=== PATIENT | female | born 1955 | race Caucasian/White ===

== ENCOUNTER 2016-11-24 09:55 | Observation (INO) | payer MEDICARE ==
[~2016-11-24] VITALS: Ht 162.6 cm; Wt 49.0 kg
[~2016-11-24 09:55] MED LIST: AMITIZA8 MCG PO; ATIVAN1 MG PO; BACTRIM 400-801 TAB PO; BACTRIM DS TABL1 TAB PO; BYSTOLIC5 MG PO; CALAN SR180 MG PO; CARAFATE1 G PO; CARAFATE1 G/10 ML PO; DEXILANT60 MG; DEXILANT60 MG PO; DOK250 MG PO; ESTER-C 500 MG1 TAB; ESTER-C 500 MG1 TAB PO; FEXOFENADINE HC60 MG PO; HYDROCODON-ACE1 EAC9 PO; HYDROCODONE 10/325; HYDROCODONE-APA1 TAB PO; INSPIRATION ELI1 PK1 INH; IPRAT-ALBUT 0.5-3 ML UPD; K-TAB10 MEQ PO; LANOXIN125 MCG PO; LASIX20 MG PO; LEVAQUIN750 MG PO; LYRICA150 MG PO; MEDROL DOSE PACK4 MG PO; MIRALAX17 GM PO; MUCINEX600 MG PO; MULTI-DAY VITAM1 TAB PO; NORCO 10/325 TA1 TA1 PO; PEPCID AC20 MG PO; PERFOROMIS20 MCG/21 INH; PREDNISONE20 MG PO; PRINIVIL20 MG PO; PULMICORT0.5 MG/21 INH; RESTORIL15 MG PO; ROCEPHIN 2 GM/D52 G1 IV; SINGULAIR10 MG PO; SOMA350 MG PO; STERAPRED DS 1010 MG PO; STERAPRED DS 1210 MG PO; SYNTHR; SYNTHROID75 MCG PO; TESSALON PERLE100 MG PO; TUMS500 MG PO; VANCOMYCIN 1 GM/1 G1 IV; VENTOLIN HFA18 GM; VENTOLIN HFA18 GM INH
[2016-11-24 11:03] LABS: BASOPHILS 0.8 % (0.0-2.0); EOSINOPHILS 3.5 % (0-7); HEMATOCRIT 40.5 % (36.0-48.0); IMMATURE GRANULOCYTES 0.1 % (0-5); MCHC 32.1 g/dL (31.0-37.0); MCV 90.4 fL (80.0-100.0); MEAN PLATELET VOLUME 11.6 fL (7.4-10.4); MONOCYTES 9.9 % (2-11); NEUTROPHILS 59.7 % (40-80); PLATELET COUNT 198 10x3/uL (130-400); RBC 4.48 10x6/uL (4.00-5.40); RDW 15.4 % (11.5-14.5); WBC 7.1 10x3/uL (4.8-10.8)
[2016-11-24 11:19] LABS: ALBUMIN 3.9 g/dL (3.4-5.0); ALKALINE PHOSPHATASE 132 U/L (46-116); ALT (SGPT) 19 U/L (10-68); BILIRUBIN - TOTAL 0.28 mg/dL (0.2-1.3); CALC OSMOLALITY 280 mosm/kg (275-300); CALCIUM 9.6 mg/dL (8.5-10.1); CARBON DIOXIDE 31.6 mmol/L (21.0-32.0); CHLORIDE - SERUM 100 mmol/L (98-107); CREATININE - SERUM 0.6 mg/dL (0.6-1.3); GLUCOSE 129 mg/dL (74-106); POTASSIUM - SERUM 4.5 mmol/L (3.5-5.1); SODIUM 138 mmol/L (136-145); UREA NITROGEN 20 mg/dL (7-18); eGFR NON AFRICAN AMERICAN > 90 mL/min (90-120)
[2016-11-24 11:35] LABS: CKMB 2.8 U/L (0.0-3.6); CREATINE KINASE 85 UL (21-215)
[2016-11-24 11:36] LABS: TROPONIN-I < 0.017 ng/mL (0.000-0.060)
--- NOTE | 2016-11-24 15:08 | NUR ---
ARRIVE TO ROOM VIA WHEELCHAIR FROM ER. ALERT AND ORIENTED X4. COMPLAINS OF SOB. BAG OVER STOMA 8L. IN ROOM. CONTINUE ADMISSION PROCESS. BED LOCKED AND LOW. CALL LIGHT IN REACH. TWO SIDERAILS UP. REFUSE SCDs.
--- NOTE | 2016-11-24 17:02 | NUR ---
INITIATE CARDIZEM DRIP AT 10mL/HR ORDERED. AFLUTTER-132bpm ON TELEMETRY. BP-118/83. CONTINUE TO MONITOR HR AND BP. CONTINUE PLAN OF CARE AND SAFETY PRECAUTIONS.
[2016-11-24 17:32] VITALS: BP 147/97; BMI 18.6
--- NOTE | 2016-11-24 19:10 | NUR ---
Received patient sitting up in bed, trach collar on over stoma, PIV in left hand saline locked. Respirations unlabored, no signs of distress at this time.
--- NOTE | 2016-11-24 21:36 | NUR ---
Given [place] tab PRN for complaints of mid chest pain especially when she coughs. Rated her pain at 9/10. Writing requests on notepad, attention seeking, numerous requests for snacks, drinks, etc. Easily frustrated.
--- NOTE | 2016-11-24 22:25 | NUR ---
PRN [place] deemed efective patient is sleeping soundly in bed. Respirations unlabored.
[2016-11-24 22:28] VITALS: BP 133/64
--- NOTE | 2016-11-24 23:20 | NUR ---
Has had call shepard on repeatedly requesting a drink, then pudding, then ice cream, then a sandwich. Wants another [place] tab but is not due, re-eucated to analgesic order, reminded patient she also had been given Soma and Lyrica with HS medications as well as Restoril and Ativan. Using her notepad and gestures patient agreed to wait until 0300, if awake then.
[2016-11-25 00:59] VITALS: BP 145/97
--- NOTE | 2016-11-25 03:40 | NUR ---
Has been sleeping, awoke with complaints of mid chest pain and ribcage pain, requested and given [place] tab PRN for pain level rated 10/10.
--- NOTE | 2016-11-25 04:01 | NUR ---
Call light on, forgot she was already given her [place] tab and requesting same again, informed she already had it and needs to let same take effect.
[2016-11-25 05:21] VITALS: BP 150/79
--- NOTE | 2016-11-25 06:15 | NUR ---
Patient has continued attention seeking and making numerous requests for water, ice, pudding, snacks, etc. Easily agitated, impulsive and impatient. Has slept poorly since 339. Continues to question her medication regime.
[2016-11-25 08:00] VITALS: BP 184/95
[2016-11-25 12:00] VITALS: BP 157/104
[2016-11-25 12:15] VITALS: Ht 162.6 cm; Wt 49.0 kg
--- NOTE | 2016-11-25 16:08 | NUR ---
SPOKE WITH TERRI/PHARMACIST WITH [facility] VIA PHONE TO REQUEST SPRAY DRIER OPERATOR OF PRESCRIPTIONS FOR REFILLS FROM PATIENT AFTER DISCHARGE TO HOME. TERRI ADVISED IT WILL BE IN THE MORNING. NOTIFIED PT WHO ACKNOWLEDGED UNDERSTANDING
--- NOTE | 2016-11-25 16:32 | NUR ---
DC LT HAND IV TIP INTACT. WRITTEN SCRIPTS PROVIDED. ALERT AND ORIENTED X4. DISCHARGE INSTRUCTIONS GIVEN VERBALLY AND WRITTEN. DISCHARGE PAPERS SIGNED ON CHART. EMS ARRIVE TO TRANSPORT HOME. REMAINS FREE FROM INJURY.
--- NOTE | 2016-11-25 16:34 | NUR ---
Patient Name: CELY ANN Admission Status: ER Accout number: [id number] Admission Date: 11-24-2016 : 1955 Admission Diagnosis: Attending: KEVIN Current LOS: 1 Anticipated DC Date: 11-25-2016 Planned Disposition: Home Health Service Primary Insurance: MEDICARE A & B Discharge Planning Comments: * Is the patient Alert and Oriented? Yes 0 * How many steps to enter\exit or inside your home? NONE 0 * PCP DR. VERAS 0 * Pharmacy [facility] 0 * Preadmission Environment Home Alone 0 * ADLs Partial Dependent 0 * Partial ADLs (Assistance needed) Ambulation Bathing Dressing Medication Management Toileting 0 * Equipment Nebulizer Oxygen 0 Wheelchair * Other Equipment [facility] MEDICAL - MEDICAL EQUIPMENT PROVIDER 0 * List name and contact numbers for known caregivers / representatives who currently or will assist patient after discharge: PT REPORTS HAVING NO ASSISTANCE OTHER THAN PAID CAREGIVERS FROM [facility] 0 * Community resources currently utilized Home Health Private Duty Care 0 * Please name any agencies selected above. [facility] 0 * Additional services required to return to the preadmission environment? No 0 * Can the patient safely return to the preadmission environment? Yes 0 * Has this patient been hospitalized within the prior 30 days at any hospital? No [address] VERAS WHO ASKED CM TO ASSIST PT WITH FINDING TRANSPORTATION HOME TODAY HE HAS DISCHARGED HER AND SHE HAS NO WAY HOME. CM MET WITH PT IN ROOM TO DISCUSS DISCHARGE PLANNING AND NEEDS. COULD NOT TALK AND COMMUNICATED IN WRITING, BUT CAN UNDERSTAND CM SPEAKING TO HER. PT REPORTS LIVING AT HOME PARTIALLY DEPENDENT UPON CAREGIVERS WHO ARE NOT AVAILABLE TODAY. PT HAS OXYGEN, WHEELCHAIR AND NEBULIZER AT HOME FROM [facility]. PT HAS HOME HEALTH WITH [facility] AND PERSONAL CARE FROM [facility]. CM DISCUSSED AVAILABILITY REHAB SERVICES AND ABILITY TO GET PORTABLE OXYGEN FROM [employer] FOR HER CAREGIVER TO PICK HER UP TO TAKE HER HOME. PT REPROTS HER CAREGIVER IS NOT AVAILABLE, HER OXYGEN AND WHEELCHAIR ARE LOCKED IN HER APARTMENT. PT WANTS CM TO CALL AMBULANCE TO TAKE HER HOME. CM EXPLAINED THAT THIS IN NOT EMERGENCY TRANSPORTATION AND OTHER ARRANGEMENTS NEED TO BE MADE. PT IS NOT ABLE TO RIDE IN [place] AND AGAIN REPORTS NOT HAVING HER WHEELCHAIR OR OXYGEN HERE. PT REPORTS THAT EVEN WITH OXYGEN, HER WHEELCHAIR IS NOT AVAILABLE. CM ASKED IF HER CAREGIVER OR SOMEONE FROM [facility] HAS ACCESS TO HER APARTMENT TO BRING HER WHEELCHAIR AND OXYGEN TO HER. PT REPORTED NO AND INSISTED ON AMBULANCE TRANSPORTATION, REPORTS MEDICAID PAYS FOR IT EVERY TIME. CM ATTEMPTED TO CONTINUE DISCUSSION, PT INSISTED CM CALL AMBULANCE FOR HER. CM EXPLAINED THAT CM WILL CALL WITH PT REQUEST AND SHE COULD BE BILLED FOR THE TRANSPORTATION BY AMBULANCE. PT REPORTED UNDERSTANDING. CM CALLED [facility], SPOKE TO SHE WHO WAS FAMILIAR WITH PT. TRANSPORTATION ARRANGED. CM FILLED OUT PCS FORM WITH INFORMATION PROVIDED BY PT WITH THE NOTATION THAT PT IS OXYGEN DEPENDENT. PT NOTIFIED. PT DENIES FURHTER NEEDS FROM CM AND ASKED THAT THE NURSE CALL [facility] REGARDING PT'S DISCHARGE MEDICATIONS. PT STATES HER CAREGIVER HAS BEEN NOTIFIED AND WILL RESUME HER CARE TOMORROW. PT REPORTS ABILITY TO CARE FOR HERSELF TONIGHT AT HOME. RUBBER GASKET INSPECTOR TRIMMER NURSE NOTIFIED. CM CALLED [facility], , NOTIFIED CARLOS OF PT'S DISCHARGE HOME TODAY. CM FAXED DISCHARGE INFORMATION TO [facility] AT [phone]. PT NOTIFIED. AMBULANCE TO FRONT DESK MONITOR PT SHORTLY FOR TRANSPORT HOME. BEDISIDE NURSE NOTIFIED. Classroom Coordinator: Jake Loredo
== END 2016-11-25 16:33 | disposition home or self-care (01) ==
LOC: D.ER 09:55 → OBSVTIME 13:34 → D.M2 13:34
PROVIDERS: Emergency Medicine; ADMIT Family Medicine
DX: R07.9 Chest pain, unspecified (principal); J44.9 Chronic obstructive pulmonary disease, unspecified; G62.9 Polyneuropathy, unspecified; I10 Essential (primary) hypertension; I48.91 Unspecified atrial fibrillation

== ENCOUNTER 2017-01-01 17:58 | Emergency (ER) | payer MEDICARE ==
[2016-11-25 12:15] VITALS: BMI 18.5
== END 2017-01-01 20:15 | disposition home or self-care (01) ==
LOC: D.ER 17:58
DX: J44.1 Chronic obstructive pulmonary disease with (acute) exacerbation (principal); S63.502A Unspecified sprain of left wrist, initial encounter; X58.XXXA Exposure to other specified factors, initial encounter; Y93.89 Activity, other specified; Y92.019 Unspecified place in single-family (private) house as the place of occurrence of the external cause; I10 Essential (primary) hypertension; F17.200 Nicotine dependence, unspecified, uncomplicated

== ENCOUNTER 2017-01-05 13:01 | Emergency (ER) | payer MEDICARE ==
[2016-11-25 12:15] VITALS: BMI 18.5
[2017-01-05 14:44] LABS: ALBUMIN 3.4 g/dL (3.4-5.0); ALKALINE PHOSPHATASE 118 U/L (46-116); ALT (SGPT) 27 U/L (10-68); BILIRUBIN - TOTAL 0.12 mg/dL (0.2-1.3); CALC OSMOLALITY 285 mosm/kg (275-300); CALCIUM 8.5 mg/dL (8.5-10.1); CARBON DIOXIDE 32.8 mmol/L (21.0-32.0); CHLORIDE - SERUM 103 mmol/L (98-107); CREATININE - SERUM 0.5 mg/dL (0.6-1.3); GLUCOSE 107 mg/dL (74-106); POTASSIUM - SERUM 4.6 mmol/L (3.5-5.1); PROTEIN - SERUM 6.2 g/dL (6.4-8.2); SODIUM 142 mmol/L (136-145); UREA NITROGEN 20 mg/dL (7-18); eGFR NON AFRICAN AMERICAN > 90 mL/min (90-120)
[2017-01-05 14:55] LABS: TROPONIN-I < 0.017 ng/mL (0.000-0.060)
[2017-01-05 15:10] LABS: UDS - AMPHET NEGATIVE QUAL (NEGATIVE); UDS - BARB NEGATIVE QUAL (NEGATIVE); UDS - BENZO NEGATIVE QUAL (NEGATIVE); UDS - COCAINE NEGATIVE QUAL (NEGATIVE); UDS - METH NEGATIVE QUAL (NEGATIVE); UDS - OPIATE NEGATIVE QUAL (NEGATIVE); UDS - PCP NEGATIVE QUAL (NEGATIVE); UDS - THC NEGATIVE QUAL (NEGATIVE)
[2017-01-05 15:37] LABS: BASOPHILS 0.6 % (0.0-2.0); EOSINOPHILS 2.3 % (0-7); HEMATOCRIT 38.4 % (36.0-48.0); HEMOGLOBIN 11.8 g/dL (12-16); IMMATURE GRANULOCYTES 0.3 % (0-5); LYMPHOCYTES 15.1 % (15-50); MCH 29.8 pg (26.0-34.0); MCHC 30.7 g/dL (31.0-37.0); MEAN PLATELET VOLUME 11.4 fL (7.4-10.4); MONOCYTES 7.8 % (2-11); NEUTROPHILS 73.9 % (40-80); PLATELET COUNT 203 10x3/uL (130-400); RBC 3.96 10x6/uL (4.00-5.40); RDW 14.8 % (11.5-14.5); WBC 6.5 10x3/uL (4.8-10.8)
== END 2017-01-05 18:42 | disposition home or self-care (01) ==
LOC: D.ER 13:01
PROVIDERS: Emergency Medicine
DX: J44.1 Chronic obstructive pulmonary disease with (acute) exacerbation (principal); F10.129 Alcohol abuse with intoxication, unspecified; I10 Essential (primary) hypertension; R00.0 Tachycardia, unspecified

== ENCOUNTER 2017-01-08 22:13 | Emergency (ER) | payer MEDICARE ==
[2016-11-25 12:15] VITALS: BMI 18.5
== END 2017-01-09 00:50 | disposition home or self-care (01) ==
LOC: D.ER 22:13
DX: J44.1 Chronic obstructive pulmonary disease with (acute) exacerbation (principal); I10 Essential (primary) hypertension; R00.0 Tachycardia, unspecified

== ENCOUNTER 2017-01-17 11:58 | Emergency (ER) | payer MEDICARE ==
[2016-11-25 12:15] VITALS: BMI 18.5
[2017-01-17 14:10] LABS: BASOPHILS 0.2 % (0.0-2.0); EOSINOPHILS 0.7 % (0-7); HEMATOCRIT 43.4 % (36.0-48.0); HEMOGLOBIN 13.7 g/dL (12-16); IMMATURE GRANULOCYTES 0.8 % (0-5); LYMPHOCYTES 17.5 % (15-50); MCH 29.8 pg (26.0-34.0); MCHC 31.6 g/dL (31.0-37.0); MCV 94.6 fL (80.0-100.0); MONOCYTES 8.9 % (2-11); NEUTROPHILS 71.9 % (40-80); RBC 4.59 10x6/uL (4.00-5.40); RDW 14.9 % (11.5-14.5); WBC 8.3 10x3/uL (4.8-10.8)
[2017-01-17 14:11] LABS: PLATELET COUNT 267 10x3/uL (130-400)
[2017-01-17 14:28] LABS: ALBUMIN 3.4 g/dL (3.4-5.0); ALKALINE PHOSPHATASE 121 U/L (46-116); ALT (SGPT) 35 U/L (10-68); CALC OSMOLALITY 286 mosm/kg (275-300); CALCIUM 8.6 mg/dL (8.5-10.1); CARBON DIOXIDE 32.5 mmol/L (21.0-32.0); CHLORIDE - SERUM 104 mmol/L (98-107); CREATININE - SERUM 0.5 mg/dL (0.6-1.3); GLUCOSE 107 mg/dL (74-106); POTASSIUM - SERUM 4.9 mmol/L (3.5-5.1); PROTEIN - SERUM 6.4 g/dL (6.4-8.2); SODIUM 143 mmol/L (136-145); UREA NITROGEN 19 mg/dL (7-18); eGFR NON AFRICAN AMERICAN > 90 mL/min (90-120)
[2017-01-17 15:27] LABS: UDS - AMPHET NEGATIVE QUAL (NEGATIVE); UDS - BARB NEGATIVE QUAL (NEGATIVE); UDS - BENZO POSITIVE QUAL (NEGATIVE); UDS - COCAINE NEGATIVE QUAL (NEGATIVE); UDS - METH NEGATIVE QUAL (NEGATIVE); UDS - OPIATE NEGATIVE QUAL (NEGATIVE); UDS - PCP NEGATIVE QUAL (NEGATIVE); UDS - THC NEGATIVE QUAL (NEGATIVE)
[2017-01-17 15:29] LABS: APPEARANCE CLEAR (CLEAR); BACTERIA MODERATE /hpf (NONE SEEN); BILIRUBIN NEGATIVE (NEGATIVE); COLOR YELLOW (YELLOW); EPITHELIAL CELLS 0-5 /hpf (0-5); GLUCOSE NEGATIVE (NEGATIVE); KETONE NEGATIVE (NEGATIVE); LEUKOCYTE ESTERASE TRACE (NEGATIVE); MUCUS <1+ /lpf (NONE SEEN); NITRITE NEGATIVE (NEGATIVE); PROTEIN NEGATIVE (NEGATIVE); RED CELLS - URINE OCC /hpf (0-5); SPECIFIC GRAVITY 1.015 (1.005-1.020); UROBILINOGEN NORMAL (NORMAL)
== END 2017-01-17 16:56 | disposition home or self-care (01) ==
LOC: D.ER 11:58
PROVIDERS: Emergency Medicine; Nurse Practitioner Family
DX: M79.641 Pain in right hand (principal); J44.9 Chronic obstructive pulmonary disease, unspecified; I10 Essential (primary) hypertension; R00.0 Tachycardia, unspecified

== ENCOUNTER 2017-02-01 10:21 | Emergency (ER) | payer MEDICARE ==
[2016-11-25 12:15] VITALS: BMI 18.5
[2017-02-01 10:53] LABS: BASOPHILS 0.2 % (0.0-2.0); EOSINOPHILS 0 % (0-7); HEMOGLOBIN 10.1 g/dL (12-16); IMMATURE GRANULOCYTES 0.2 % (0-5); LYMPHOCYTES 9.2 % (15-50); MCH 29.4 pg (26.0-34.0); MCHC 30.6 g/dL (31.0-37.0); MCV 95.9 fL (80.0-100.0); MEAN PLATELET VOLUME 10.8 fL (7.4-10.4); MONOCYTES 11.7 % (2-11); NEUTROPHILS 78.7 % (40-80); PLATELET COUNT 289 10x3/uL (130-400); RBC 3.44 10x6/uL (4.00-5.40); RDW 14.1 % (11.5-14.5)
[2017-02-01 11:25] LABS: ALBUMIN 2.9 g/dL (3.4-5.0); ALKALINE PHOSPHATASE 80 U/L (46-116); ALT (SGPT) 18 U/L (10-68); AMYLASE - SERUM 68 U/L (25-115); CALC OSMOLALITY 286 mosm/kg (275-300); CALCIUM 9.3 mg/dL (8.5-10.1); CHLORIDE - SERUM 101 mmol/L (98-107); CREATININE - SERUM 0.8 mg/dL (0.6-1.3); GLUCOSE 128 mg/dL (74-106); LIPASE 127 U/L (73-393); POTASSIUM - SERUM 3.9 mmol/L (3.5-5.1); PROTEIN - SERUM 5.9 g/dL (6.4-8.2); SODIUM 141 mmol/L (136-145); UREA NITROGEN 25 mg/dL (7-18); eGFR NON AFRICAN AMERICAN 77 mL/min (90-120)
[2017-02-01 12:00] LABS: APPEARANCE HAZY (CLEAR); BILIRUBIN NEGATIVE (NEGATIVE); COLOR YELLOW (YELLOW); GLUCOSE NEGATIVE (NEGATIVE); KETONE NEGATIVE (NEGATIVE); LEUKOCYTE ESTERASE NEGATIVE (NEGATIVE); NITRITE NEGATIVE (NEGATIVE); PROTEIN NEGATIVE (NEGATIVE); UROBILINOGEN NORMAL (NORMAL)
== END 2017-02-01 14:10 | disposition home or self-care (01) ==
LOC: D.ER 10:21
PROVIDERS: Family Medicine
DX: K52.9 Noninfective gastroenteritis and colitis, unspecified (principal); R11.10 Vomiting, unspecified; J44.9 Chronic obstructive pulmonary disease, unspecified; I10 Essential (primary) hypertension; F17.200 Nicotine dependence, unspecified, uncomplicated

== ENCOUNTER 2017-02-02 17:24 | Inpatient (IN) | payer MEDICARE ==
[~2017-02-02] VITALS: Ht 162.6 cm; Wt 52.3 kg
[2017-02-02 19:53] LABS: BASOPHILS 0.1 % (0.0-2.0); EOSINOPHILS 0.6 % (0-7); HEMOGLOBIN 8.1 g/dL (12-16); IMMATURE GRANULOCYTES 0.7 % (0-5); LYMPHOCYTES 6.4 % (15-50); MCH 29.5 pg (26.0-34.0); MCHC 31.8 g/dL (31.0-37.0); MEAN PLATELET VOLUME 11.3 fL (7.4-10.4); MONOCYTES 7.8 % (2-11); NEUTROPHILS 84.4 % (40-80); PLATELET COUNT 245 10x3/uL (130-400); RDW 14.7 % (11.5-14.5)
[2017-02-02 20:11] LABS: ALBUMIN 2.8 g/dL (3.4-5.0); ALKALINE PHOSPHATASE 73 U/L (46-116); ALT (SGPT) 16 U/L (10-68); BILIRUBIN - TOTAL 0.21 mg/dL (0.2-1.3); CALC OSMOLALITY 273 mosm/kg (275-300); CALCIUM 8.5 mg/dL (8.5-10.1); CARBON DIOXIDE 30.5 mmol/L (21.0-32.0); CHLORIDE - SERUM 99 mmol/L (98-107); CREATININE - SERUM 0.6 mg/dL (0.6-1.3); GLUCOSE 94 mg/dL (74-106); POTASSIUM - SERUM 3.9 mmol/L (3.5-5.1); PROTEIN - SERUM 5.5 g/dL (6.4-8.2); SODIUM 136 mmol/L (136-145); eGFR NON AFRICAN AMERICAN > 90 mL/min (90-120)
[2017-02-02 20:13] LABS: UREA NITROGEN 18 mg/dL (7-18)
[2017-02-02 20:18] LABS: DIGOXIN 0.49 ng/mL (0.90-2.00); PRO BNP 115 pg/mL (0-125)
[2017-02-02 20:22] LABS: TROPONIN-I < 0.017 ng/mL (0.000-0.060)
[2017-02-02 20:24] LABS: HEMATOCRIT 25.5 % (36.0-48.0); MCV 92.7 fL (80.0-100.0); RBC 2.75 10x6/uL (4.00-5.40)
[2017-02-02 22:53] VITALS: BP 100/69; BMI 20.1
--- NOTE | 2017-02-02 23:40 | NUR ---
PT CALLED REQUESTING SOMETHING FOR CHEST PRESSURE R/T CONGESTION. PROVIDED PT WITH PRN MORPHINE VIA L.AC PIV. PT VOICED THANKS AND WOULD LIKE LIGHTS OUT AND TO TRY TO REST. CL IN REACH, BED IN LOWEST, SIDE RAILS X2. NO FURTHER NEEDS AT THIS TIME. WILL CPOC.
[2017-02-03] VITALS: BP 100/69; BP 110/66
--- NOTE | 2017-02-03 00:39 | NUR ---
PT CALLED REQUESTING TO USE BR. ASSISTED ONTO BEDPAN PT VOIDED. PT RESTING IN BED STATES SHE FELT RELIEF FROM MORPHINE THAT WAS GIVEN EARLIER. DENIES ANY CURRENT NEEDS. CL IN REACH. WILL CTM.
--- NOTE | 2017-02-03 03:28 | NUR ---
PT CALLED REQUESTING HER PRN PAIN MEDICATION AND WAS PROVIDED WITH IT ALONG WITH HER SCHEDULED [place] VIA L.AC PIV ACCESS. ASSISTED PT WITH HER SUCTION AND RESPIRATORY IN ROOM WITH SCHEDULED TX. PT VOICED THANKS AND DENIES ANY FURTHER NEEDS AT THIS TIME. WILL CTM.
[2017-02-03 04:00] VITALS: BP 93/52
--- NOTE | 2017-02-03 04:55 | NUR ---
PT CALLED REQUESTING TO USE BEDPAN. PT VOIDED LARGE AMOUNT OF CLEAR YELLOW URINE. PT RESTING SITTING UP IN BED AND DENIES ANY FURTHER NEEDS AT THIS TIME. CL IN REACH, BED IN LOWEST, SIDE RAILS X2. WILL CPOC.
[2017-02-03 08:05] VITALS: BP 84/64
--- NOTE | 2017-02-03 09:20 | NUR ---
PT ASSESSMENT COMPLETED PT SITTING UP IN BED ON SIDE RESPERATIONS EVEN AND UNLABORED CALL LIGHT IN REACH SRX2 BED LOW AND LOCKED WILL MONITOR
--- NOTE | 2017-02-03 10:18 | NUR ---
PT REFUSING TO WEAR SCD AT THIS TIME
--- NOTE | 2017-02-03 11:28 | NUR ---
PT LAYING IN BED NO DISTRESS OBSERVED CALL LIGHT IN REACH SRX2 BED LOW AND LOCKED WILL MONITOR
[2017-02-03 12:07] VITALS: BP 105/64
[2017-02-03 12:51] VITALS: Ht 162.6 cm; Wt 52.3 kg
[2017-02-03 17:04] VITALS: BP 106/67
--- NOTE | 2017-02-03 19:57 | NUR ---
PT RESTING IN BED, DENIES NEEDS. BED LOW. CL IN REACH.
[2017-02-03 21:17] VITALS: BP 135/68
--- NOTE | 2017-02-03 21:30 | NUR ---
PT REQ AND REC'D PRN MORPHINE FOR THROAT AND CHEST PAIN ALONG WITH HS MEDS. PT DENIES FURTHER NEEDS. WCTM. BED LOW. CL INR EACH.
--- NOTE | 2017-02-03 22:43 | NUR ---
PT SITTING UP IN BED EATING SNACK OF GRAPES. PT DENIES NEEDS. BED LOW. CL IN REACH.
[2017-02-04 01:21] VITALS: BP 103/59
--- NOTE | 2017-02-04 02:38 | NUR ---
PT RESTING, EYES CLOSED. RR ARE EVEN AND UNLABORED. WCTM. BED LOW. CL IN REACH.
[2017-02-04 04:00] VITALS: BP 123/72
[2017-02-04 05:42] LABS: ALBUMIN 2.3 g/dL (3.4-5.0); ALKALINE PHOSPHATASE 78 U/L (46-116); ALT (SGPT) 15 U/L (10-68); BILIRUBIN - TOTAL 0.38 mg/dL (0.2-1.3); CALC OSMOLALITY 273 mosm/kg (275-300); CALCIUM 8.1 mg/dL (8.5-10.1); CARBON DIOXIDE 32.4 mmol/L (21.0-32.0); CHLORIDE - SERUM 96 mmol/L (98-107); CREATININE - SERUM 0.5 mg/dL (0.6-1.3); GLUCOSE 86 mg/dL (74-106); PROTEIN - SERUM 6.2 g/dL (6.4-8.2); SODIUM 137 mmol/L (136-145); UREA NITROGEN 14 mg/dL (7-18); eGFR NON AFRICAN AMERICAN > 90 mL/min (90-120)
[2017-02-04 05:46] LABS: POTASSIUM - SERUM 3.2 mmol/L (3.5-5.1)
[2017-02-04 05:56] LABS: BASOPHILS 0.2 % (0.0-2.0); EOSINOPHILS 2.1 % (0-7); HEMATOCRIT 24.2 % (36.0-48.0); HEMOGLOBIN 7.6 g/dL (12-16); IMMATURE GRANULOCYTES 0.5 % (0-5); LYMPHOCYTES 12.7 % (15-50); MCH 28.5 pg (26.0-34.0); MCHC 31.4 g/dL (31.0-37.0); MEAN PLATELET VOLUME 11.2 fL (7.4-10.4); MONOCYTES 12.3 % (2-11); NEUTROPHILS 72.2 % (40-80); PLATELET COUNT 284 10x3/uL (130-400); RBC 2.67 10x6/uL (4.00-5.40); RDW 14.9 % (11.5-14.5)
[2017-02-04 05:57] LABS: MCV 90.6 fL (80.0-100.0); WBC 6.3 10x3/uL (4.8-10.8)
--- NOTE | 2017-02-04 06:20 | NUR ---
PT SITTING UP IN BED. AM MEDS ADMINISTERED. ASSISTED PT TO USE BEDPAN. PT VOIDED CLEAR YELLOW URINE. PT DENIES FURTHER NEEDS. BED LOW. CL IN REACH.
--- NOTE | 2017-02-04 07:17 | NUR ---
PT SITTING UP IN BED SLEEPING NO S/S DISTRESS NOTED WILL CONT TO MONITOR
[2017-02-04 08:37] LABS: % SATURATION 4 % (15-55); IRON 14 ug/dl (35-150); TOTAL IRON BIND CAPACITY 346 ug/dl (260-445); UNSAT IRON BIND CAPACITY 332 ug/dl (150-375)
[2017-02-04 08:45] VITALS: BP 117/63
--- NOTE | 2017-02-04 09:19 | NUR ---
DR VILLANUEVA ORDERED FOR PT TO HAVE 2 UNITS PRBC. CONSENT SIGNED FOR BLOOD PRODUCTS BY PATIENT. PLACED CONSENT ON PT CHART. WAITING ON BLOOD TO BE FINISHED BY LAB
[2017-02-04 12:38] VITALS: BP 101/62
--- NOTE | 2017-02-04 12:43 | NUR ---
PT ASKING FOR ORAL PAIN MEDICATIONS. EXPLAINED TO PT THAT SHE ALREADY HAS ORAL PAIN MEDS ORDERED AND I GAVE IT TO HER ALREADY. IT IS NOT TIME FOR ANOTHER ONE. PT VERBALIZES UNDERSTANDING.
--- NOTE | 2017-02-04 14:53 | NUR ---
PT ORDERED TO HAVE 2 UNITS PRBC. CONSENT IS SIGNED ON THE CHART. PRE TRANSFUSION VS ARE WNL. HR 106 ( NORMAL FOR PT ). STARTED FIRST UNIT OF PRBC. INFUSING TO LEFT FA 20G PIV WITH NO PROBLEMS. WILL CONT TO MONITOR CLOSELY.
--- NOTE | 2017-02-04 15:09 | NUR ---
PT STILL WITH NO S/S TRANSFUSION REACTION. VS STILL WNL. PRBC INFUSING TO LEFT FA. WILL CONT TO MONITOR.
--- NOTE | 2017-02-04 15:34 | NUR ---
PT BP NOW 85/55. PT IS VERY RELAXED AND SLEEPING. ALL OTHER VS STILL WNL. PRBC STILL INFUSING TO LEFT FA. WILL CONT TO MONITOR.
--- NOTE | 2017-02-04 16:09 | NUR ---
PT BP BACK UP TO NORMAL RANGE. PT STILL SLEEPING AND RESTING QUIETLY NO S/S REACTION. VS WNL. WILL CONT TO MONITOR.
--- NOTE | 2017-02-04 17:05 | NUR ---
PT PIV INFILTRATED WHILE PRBC INFUSING. DC WITH CATHETER TIP INTACT. NO SIGN OF VEIN TO RESITE PT. ASKED ENA NURSE CHEMICAL DEPENDENCY TO SITE PT. SHE DID NOT SEE/FEEL ANYTHING EITHER. ENA CALLED HOUSE SUP-THEYRE BUSY. CALLED ICU, THEY ARE GOING TO SEND SOMEONE DOWN TO TRY WHEN THEY GET A CHANCE. ALL OF PRBC INFUSED EXCEPT FOR ABOUT 50CC. PT TO GET ANOTHER UNIT. CANT START UNTIL WE HAVE ANOTHER PIV IN PLACE.
--- NOTE | 2017-02-04 17:33 | NUR ---
ICU NURSE CAME TO SITE PT. X3 STICKS NO SUCCESS.
--- NOTE | 2017-02-04 18:16 | NUR ---
PT SITTING UP IN BED DENIES NEEDS
--- NOTE | 2017-02-04 18:18 | NUR ---
PT PRBC TRANSFUSION VS 1454- T-99.4 P-106 RR-20 BP 121/71 1510- T-99.2 P-103 RR-20 BP-101/63 1525- P-99 RR-20 BP-85/55 (PT SLEEPING) 1600- P-97 RR-20 BP- 93/54 1615- P-96 RR-20 BP- 90/49 1645- P-101 RR-20 BP- 99/60
--- NOTE | 2017-02-04 19:20 | NUR ---
PT SCREEN TENDER HELPER LIGHT. RECEIVED SITTING UP IN BED AT THIS TIME. REQUESTS BEDPAN AND FOR PEN TO BE PICKED UP OFF FLOOR. DENIES OTHER NEEDS. BRUSH HOLDER INSPECTOR IN ROOM AT THIS TIME. BED LOW. PHONE AND CALL LIGHT IN REACH. SRX2.
[2017-02-04 20:00] VITALS: BP 88/52
--- NOTE | 2017-02-04 20:08 | NUR ---
TALKED WITH DR. MOSES CONCERNING PT STILL NEEDING ONE UNIT OF PRBCS BUT NOT HAVING IV ACCESS. DR MOSES STATED IT WAS OKAY TO WAIT UNTIL AM. WILL CONTINUE TO MONITOR PT THROUGHOUT THE NIGHT.
--- NOTE | 2017-02-04 20:11 | NUR ---
ADMINISTERED NORCO PO PER ORDERS AT THIS TIME FOR PAIN PT RATES 08/01. ASSESSMENT COMPLETED PER FLOWSHEET. PT REQUESTS LIGHT BE TURNED OFF AT THIS TIME. DENIES OTHER NEEDS. BED LOW. PHONE AND CALL LIGHT IN REACH. SRX2.
--- NOTE | 2017-02-04 21:14 | NUR ---
PT BP 88/52 AT THIS TIME. WILL CONTINUE TO MONITOR.
--- NOTE | 2017-02-04 21:35 | NUR ---
PM MEDS GIVEN AT THIS TIME. RESTORIL AND ATIVAN HELD DUE TO BP BEING 88/52. PT DENIES OTHER NEEDS. BED LOW. PHONE AND CALL LIGHT IN REACH. SRX2.
--- NOTE | 2017-02-04 23:23 | NUR ---
RESPIRATORY IN ROOM WITH PT AT THIS TIME. NO NEEDS NOTED.
[2017-02-05] VITALS: BP 93/54
--- NOTE | 2017-02-05 01:22 | NUR ---
PT BP-93/54. PT RESTING QUIETLY AT THIS TIME WITH EYES CLOSED. RESPIRATIONS EVEN, NON-LABORED. NO ACUTE DISTRESS NOTED AT THIS TIME. BED LOW. PHONE AND CALL LIGHT IN REACH. SRX2.
--- NOTE | 2017-02-05 02:02 | NUR ---
PT RESTING QUIETLY AT THIS TIME WITH EYES CLOSED. RESPIRATIONS EVEN, NON-LABORED. NO ACUTE DISTRESS NOTED AT THIS TIME. BED LOW. PHONE AND CALL LIGHT IN REACH. SRX2.
[2017-02-05 04:00] VITALS: BP 103/59
--- NOTE | 2017-02-05 04:50 | NUR ---
PT RESTING QUIETLY AT THIS TIME WITH EYES CLOSED . RESPIRATIONS EVEN, NON-LABORED. NO ACUTE DISTRESS NOTED AT THIS TIME. BED LOW. PHONE AND CALL LIGHT IN REACH. SRX2.
--- NOTE | 2017-02-05 05:31 | NUR ---
MARLO BLEVINS WAS CHANGING PT DUE TO INCONTINENT EPISODE. DURING BED CHANGE 11 VARIOUS PILLS WERE FOUND IN BED. I PERSONALLY WITNESSED PT TAKE ALL HER NIGHT MEDICATIONS THAT I HAD GIVEN HER. IM NOT SURE WHEN THEY WERE FROM OR IF PT HAD THEM FROM HER PERSONALLY BELONGINGS. PT DENIES KNOWING WELL. PILLS WERE WASTED IN APPROPRIATE BIN PER PROTOCOL AND WITNESS BY RAS BELTRAN RN ON THIS FLOOR. PT NOW CLEAN AND DRY AND DENIES ANY FURTHER NEEDS AT THIS TIME. CL IN REACH, BED IN LOWEST, SIDE RAILS X2. WILL CPOC.
[2017-02-05 05:44] LABS: BASOPHILS 0.7 % (0.0-2.0); EOSINOPHILS 1.3 % (0-7); HEMATOCRIT 27.3 % (36.0-48.0); HEMOGLOBIN 8.6 g/dL (12-16); IMMATURE GRANULOCYTES 1.1 % (0-5); LYMPHOCYTES 18.3 % (15-50); MCH 28.7 pg (26.0-34.0); MCHC 31.5 g/dL (31.0-37.0); MEAN PLATELET VOLUME 10.9 fL (7.4-10.4); MONOCYTES 15.7 % (2-11); NEUTROPHILS 62.9 % (40-80); PLATELET COUNT 315 10x3/uL (130-400); RDW 15.2 % (11.5-14.5); WBC 6.1 10x3/uL (4.8-10.8)
[2017-02-05 05:57] LABS: ALBUMIN 2.5 g/dL (3.4-5.0); ALKALINE PHOSPHATASE 84 U/L (46-116); ALT (SGPT) 14 U/L (10-68); BILIRUBIN - TOTAL 0.32 mg/dL (0.2-1.3); CALC OSMOLALITY 278 mosm/kg (275-300); CALCIUM 8.7 mg/dL (8.5-10.1); CARBON DIOXIDE 33.8 mmol/L (21.0-32.0); CHLORIDE - SERUM 96 mmol/L (98-107); GLUCOSE 82 mg/dL (74-106); PROTEIN - SERUM 6.6 g/dL (6.4-8.2); SODIUM 139 mmol/L (136-145); UREA NITROGEN 17 mg/dL (7-18)
[2017-02-05 06:00] LABS: CREATININE - SERUM 0.7 mg/dL (0.6-1.3); POTASSIUM - SERUM 2.9 mmol/L (3.5-5.1); eGFR NON AFRICAN AMERICAN 90 mL/min (90-120)
--- NOTE | 2017-02-05 06:15 | NUR ---
ADMINISTERED SYNTHROID PO PER ORDERS AT THIS TIME. PT DENIES NEEDS AT THIS TIME. BED LOW. PHONE AND CALL LIGHT IN REACH. SRX2.
--- NOTE | 2017-02-05 06:25 | NUR ---
NOTIFIED DR. GONZALES OFFICE CONCERNINGS PTS POTASSIUM OF 2.9. WAITING FOR CALL BACK AT THIS TIME.
--- NOTE | 2017-02-05 06:31 | NUR ---
SPOKE WITH DR. SOLORZANO AT THIS TIME CONCERNING PTS POTASSIUM OF 2.9. HE STATES TO PUT PT ON ELECTROLYTE PROTOCOL.
--- NOTE | 2017-02-05 07:21 | NUR ---
PT SITTING UP IN BED SLEEPING NO S/S DISTRESS NOTED WILL CONT TO MONITOR
--- NOTE | 2017-02-05 08:21 | NUR ---
NIGHT NURSES ALSO DID NOT HAVE ANY LUCK WITH SITING PT PIV. CALLED GONZALO VASCULAR NURSE. SHE IS NOT COMING IN UNTIL 11 AM, WILL CALL HER THEN
[2017-02-05 08:56] VITALS: BP 125/46
--- NOTE | 2017-02-05 10:31 | NUR ---
Nutrition follow-up: Diet: low sodium PO intake is poor at this time. Labs reviewed +BM Wt: 116# RDN following.
[2017-02-05 12:00] VITALS: BP 120/67
--- NOTE | 2017-02-05 12:30 | NUR ---
GOT IN TOUCH WITH GONZALO VASCULAR ACCESS NURSE. GOING TO SITE PT PIV SOON
--- NOTE | 2017-02-05 16:02 | NUR ---
PT REFUSING TO DRINK ORAL POTASSIUM. GONZALO CURRENTLY IN ROOM TO SITE PIV. WILL START BLOOD WHEN IV ACCESS IS AVAILABLE. AND THEN WILL HAVE TO DO KCL RIDERS PER ELEC RK.
[2017-02-05 17:41] VITALS: BP 121/763
--- NOTE | 2017-02-05 17:43 | NUR ---
PT SITTING UP IN BED DENIES NEEDS PT HAS ORDER FOR STOOL SAMPLE. BOTH TIMES PT WENT TODAY SHE ALSO URINATED IN SAMPLE.
--- NOTE | 2017-02-05 17:47 | NUR ---
VASCULAR NURSE COULD NOT SITE PT OR EVEN GET A MIDLINE IN. PAGED DR CALLAHAN TO SEE WHAT ELSE WE NEED TO DO.
--- NOTE | 2017-02-05 17:55 | NUR ---
Patient Name: CELY ANN Admission Status: ER Accout number: [id number] Admission Date: 02-02-2017 : 1955 Admission Diagnosis:SHORTNESS OF BREATH Attending: MICHAEL Current LOS: 3 Anticipated DC Date: Planned Disposition: Assisted Facility Primary Insurance: MEDICARE A & B Discharge Planning Comments: CM MET WITH PATIENT TO DISCUSS DISCHARGE PLANNING/NEEDS. THE PATIENT HAS HOME OXYGEN WITH A TRACH COLLAR BUT IS ABLE TO COMMUNICATE WITH PEN AND PAD. THE PATIENT STATES SHE RESIDES ALONE IN AN APARTMENT WITH NO STEPS. SHE HAS HOME OXYGEN, NEBULIZER, SHOWER CHAIR, AND A BSC SUPPLIED BY [employer]. SHE STATED SHE HAS MEALS ON WHEELS. THE PATIENT STATED HER PURCHASING INTERNSHIP IS "AMARIS JORDAN" ([phone]). HER PCP IS DR. VERAS. HER PHARMACY IS [facility] ([phone]). PATIENT STATED SHE HAS "BEEN WORKING WITH [facility] AND WISHES TO DISCHARGE THERE. CM TO FOLLOW UP AND SEND REFERRAL WEDNESDAY IF NEEDED AFTER SPEAKING WITH ADMIN AT [facility]. CM TO FOLLOW AND ASSIST WITH DISCHARGE PLANNING/NEEDS. Yeast Culture Developer: Dilcia Tavares * Is the patient Alert and Oriented? Yes 0 * How many steps to enter\\exit or inside your home? 0 0 * PCP EDA 0 * Pharmacy [facility] ([phone]) 0 * Preadmission Environment Home Alone 0 * ADLs Independent 0 * Equipment Bedside Commode Nebulizer Oxygen Shower Chair 0 * Other Equipment VIA [employer] D[employer] 0 * List name and contact numbers for known caregivers / representatives who currently or will assist patient after discharge: AMARIS JORDAN ([phone]) 0 * Community resources currently utilized Meals on Wheels 0 * Additional services required to return to the preadmission environment? Yes 0 * Can the patient safely return to the preadmission environment? No 0 * Has this patient been hospitalized within the prior 30 days at any hospital? No 0 Grand Total: 0
--- NOTE | 2017-02-05 18:05 | NUR ---
DR CALLAHAN CALLED BACK SAID TO DO CVL PLACEMENT AND CONSULT SURGERY. DONE CALLED DELLA AND LET HIM KNOW.
[2017-02-05 20:00] VITALS: BP 116/81
[2017-02-06 04:00] VITALS: BP 101/55
--- NOTE | 2017-02-06 08:15 | NUR ---
PT LAYING IN THE BED REFUSED BREAKFAST WANTS GRAPES ONLY CALL LIGHT IN REACH WILL SOLITARIO
[2017-02-06 09:19] VITALS: BP 125/77
[2017-02-06 09:43] LABS: BASOPHILS 0.6 % (0.0-2.0); EOSINOPHILS 0.4 % (0-7); HEMATOCRIT 30.6 % (36.0-48.0); HEMOGLOBIN 9.6 g/dL (12-16); IMMATURE GRANULOCYTES 2.4 % (0-5); LYMPHOCYTES 9.9 % (15-50); MCH 28.6 pg (26.0-34.0); MCHC 31.4 g/dL (31.0-37.0); MCV 91.1 fL (80.0-100.0); MONOCYTES 9.2 % (2-11); NEUTROPHILS 77.5 % (40-80); RBC 3.36 10x6/uL (4.00-5.40); RDW 15.5 % (11.5-14.5)
[2017-02-06 09:44] LABS: PLATELET COUNT 402 10x3/uL (130-400); WBC 12.3 10x3/uL (4.8-10.8)
[2017-02-06 09:56] LABS: ALBUMIN 2.6 g/dL (3.4-5.0); ALKALINE PHOSPHATASE 101 U/L (46-116); ALT (SGPT) 37 U/L (10-68); BILIRUBIN - TOTAL 0.31 mg/dL (0.2-1.3); CALC OSMOLALITY 275 mosm/kg (275-300); CALCIUM 9.5 mg/dL (8.5-10.1); CARBON DIOXIDE 35.1 mmol/L (21.0-32.0); CHLORIDE - SERUM 95 mmol/L (98-107); CREATININE - SERUM 0.7 mg/dL (0.6-1.3); GLUCOSE 117 mg/dL (74-106); MAGNESIUM - SERUM 2.1 mg/dL (1.8-2.4); PHOSPHOROUS 4.1 mg/dL (2.5-4.9); POTASSIUM - SERUM 3.1 mmol/L (3.5-5.1); PROTEIN - SERUM 7.3 g/dL (6.4-8.2); SODIUM 137 mmol/L (136-145); UREA NITROGEN 16 mg/dL (7-18); eGFR NON AFRICAN AMERICAN 90 mL/min (90-120)
[2017-02-06 12:21] VITALS: BP 92/46
--- NOTE | 2017-02-06 13:00 | NUR ---
PT RESTING IN BED WITH EYES OPEN CALL LIGHT IN REACH WILL MONITER
[2017-02-06 15:39] LABS: CALC OSMOLALITY 273 mosm/kg (275-300); CALCIUM 9.4 mg/dL (8.5-10.1); CARBON DIOXIDE 37.1 mmol/L (21.0-32.0); CHLORIDE - SERUM 94 mmol/L (98-107); CREATININE - SERUM 0.7 mg/dL (0.6-1.3); GLUCOSE 124 mg/dL (74-106); SODIUM 136 mmol/L (136-145); UREA NITROGEN 14 mg/dL (7-18); eGFR NON AFRICAN AMERICAN 90 mL/min (90-120)
[2017-02-06 15:49] VITALS: BP 110/65
--- NOTE | 2017-02-06 15:59 | NUR ---
SPOKE WITH DR. HULL ABOUT PT'S MED INTAKE. PT IS CURRENTLY TAKING ALL MEDS PO IF NEED ARISES AND SHE QUITS TAKING MEDICATIONS PO. HE WILL ADDRESS NEED FOR LINE AT THAT TIME.
--- NOTE | 2017-02-06 18:19 | NUR ---
PT IS ALERT. NO SS OF DISTRESS AT THIS TIME. WILL CONTINUE TO MOTNIOR.
[2017-02-06 21:37] VITALS: BP 114/66
--- NOTE | 2017-02-06 22:01 | NUR ---
PRN NORCO GIVEN FOR THROAT PAIN 8 OF 10 AT 2129.
[2017-02-07 00:30] VITALS: BP 103/57
--- NOTE | 2017-02-07 01:30 | NUR ---
Recieved patient and report at 1900, alert andt oriented x 4, isolation precautions for contact/c-diff, call light and water in reach, bed in low position, locked, continue plan of care, continue to monitor.
--- NOTE | 2017-02-07 03:19 | NUR ---
Patient resting quietly quietly in bed, no acute distress noted.
[2017-02-07 04:30] VITALS: BP 105/60
[2017-02-07 07:10] LABS: BASOPHILS 0.5 % (0.0-2.0); EOSINOPHILS 1.1 % (0-7); HEMATOCRIT 30.9 % (36.0-48.0); HEMOGLOBIN 9.7 g/dL (12-16); IMMATURE GRANULOCYTES 4.9 % (0-5); LYMPHOCYTES 11.4 % (15-50); MCH 28.1 pg (26.0-34.0); MCHC 31.4 g/dL (31.0-37.0); MCV 89.6 fL (80.0-100.0); MEAN PLATELET VOLUME 11.1 fL (7.4-10.4); MONOCYTES 9.9 % (2-11); NEUTROPHILS 72.2 % (40-80); PLATELET COUNT 384 10x3/uL (130-400); RBC 3.45 10x6/uL (4.00-5.40); RDW 15.6 % (11.5-14.5); WBC 11.6 10x3/uL (4.8-10.8)
[2017-02-07 07:20] LABS: ALBUMIN 2.6 g/dL (3.4-5.0); ALKALINE PHOSPHATASE 103 U/L (46-116); ALT (SGPT) 41 U/L (10-68); BILIRUBIN - TOTAL 0.26 mg/dL (0.2-1.3); CALC OSMOLALITY 275 mosm/kg (275-300); CARBON DIOXIDE 34.8 mmol/L (21.0-32.0); CHLORIDE - SERUM 95 mmol/L (98-107); CREATININE - SERUM 0.6 mg/dL (0.6-1.3); GLUCOSE 117 mg/dL (74-106); POTASSIUM - SERUM 3.5 mmol/L (3.5-5.1); PROTEIN - SERUM 6.2 g/dL (6.4-8.2); SODIUM 137 mmol/L (136-145); UREA NITROGEN 16 mg/dL (7-18); eGFR NON AFRICAN AMERICAN > 90 mL/min (90-120)
--- NOTE | 2017-02-07 08:31 | NUR ---
PT RESTING IN BED EYES OPEN CALL LIGHT IN REACH WILL MONITER
[2017-02-07 08:59] VITALS: BP 98/56
[2017-02-07 12:14] VITALS: BP 95/56
--- NOTE | 2017-02-07 16:03 | NUR ---
PT IS ALERT. NO SS OF DISTRESS. WILL CONTINUE TO MONITOR.
[2017-02-07 16:13] VITALS: BP 93/53
--- NOTE | 2017-02-07 19:30 | NUR ---
PT. IN BED WITH HOB UP FOR COMFORT AND REQUESTING RESP. THERAPY INCREASE HER O2 TO HER TRACH "JUST A LITTLE". RESP. THERAPY HAS BEEN NOTIFIED PER PT'S REQUEST. ASSESSMENT COMPLETED. CALL LIGHT WITHIN REACH FOR ANY NEEDS.
[2017-02-07 21:37] VITALS: BP 106/54
--- NOTE | 2017-02-07 22:28 | NUR ---
PT. IN BED WITH HOB UP FOR COMFORT WITH EYES CLOSED AND RESP. EVEN AND EASILY WAKES UP. PT. HAS BEEN WATCHING TV OFF AND ON. PT. DENIES ANY FURTHER NEEDS SHE HAS REQUESTED AND RECEIVED HER LAST PAIN MED. FOR THE DAY AND SHE IS AWARE OF IT. CALL LIGHT WITHIN REACH.
[2017-02-08 00:30] VITALS: BP 90/53
--- NOTE | 2017-02-08 02:13 | NUR ---
PT. IN BED WITH HOB UP FOR COMFORT WITH EYES CLOSED AND RESP. EVEN. CALL LIGHT WITHIN REACH.
--- NOTE | 2017-02-08 04:08 | NUR ---
PT. IN BED WITH HOB UP FOR COMFORT AND RECEIVED HUMIDIFIED O2 VIA TRACH AT ALL TIMES AT 10L/MIN. EYES ARE CLOSED AND RESP. ARE EVEN. CALL LIGHT WITHIN REACH.
[2017-02-08 04:45] VITALS: BP 93/54
[2017-02-08 05:45] LABS: BASOPHILS 0.5 % (0.0-2.0); EOSINOPHILS 0.9 % (0-7); HEMATOCRIT 27.3 % (36.0-48.0); HEMOGLOBIN 8.7 g/dL (12-16); IMMATURE GRANULOCYTES 4.7 % (0-5); LYMPHOCYTES 14.9 % (15-50); MCH 28.2 pg (26.0-34.0); MCHC 31.9 g/dL (31.0-37.0); MCV 88.3 fL (80.0-100.0); MEAN PLATELET VOLUME 11.7 fL (7.4-10.4); MONOCYTES 10.2 % (2-11); NEUTROPHILS 68.8 % (40-80); PLATELET COUNT 357 10x3/uL (130-400); RBC 3.09 10x6/uL (4.00-5.40); RDW 15.8 % (11.5-14.5); WBC 10.5 10x3/uL (4.8-10.8)
[2017-02-08 06:15] LABS: ALBUMIN 2.4 g/dL (3.4-5.0); ALKALINE PHOSPHATASE 91 U/L (46-116); ALT (SGPT) 33 U/L (10-68); BILIRUBIN - TOTAL 0.24 mg/dL (0.2-1.3); CALCIUM 8.7 mg/dL (8.5-10.1); CARBON DIOXIDE 37.3 mmol/L (21.0-32.0); CHLORIDE - SERUM 94 mmol/L (98-107); CREATININE - SERUM 0.7 mg/dL (0.6-1.3); GLUCOSE 115 mg/dL (74-106); POTASSIUM - SERUM 3.1 mmol/L (3.5-5.1); PROTEIN - SERUM 6.4 g/dL (6.4-8.2); SODIUM 135 mmol/L (136-145); eGFR NON AFRICAN AMERICAN 90 mL/min (90-120)
[2017-02-08 06:17] LABS: CALC OSMOLALITY 273 mosm/kg (275-300); UREA NITROGEN 21 mg/dL (7-18)
[2017-02-08 08:00] VITALS: BP 106/66
--- NOTE | 2017-02-08 08:05 | NUR ---
[place] PAIN MEDICATED ACCORDINGLY
[2017-02-08 12:08] VITALS: BP 99/54
[2017-02-08 16:00] VITALS: BP 114/64
--- NOTE | 2017-02-08 18:50 | NUR ---
Patient Name: CELY ANN Encounter No: [id number] : 1955 Primary Insurance: MEDICARE A & B Anticipated DC Date: 02-09-2017 Planned Disposition: Jail Facility External Planned Provider: [facility], MEDICARE REHAB BED DCP follow-up note: CM RECEIVED CALL FROM AMARIS JULIAN, , WHO REPORTS THAT SHE IS PT'S FRIEND AND PT HAS TOLD HER THAT SHE WANTS PLACEMENT AT [facility]. AMARIS HAS SPOKEN TO TIM ABOUT PT'S PLACEMENT AT HOSPTIAL DISCHARGE AND THEY NEED REFERRAL FROM HOSPITAL. CM SPOKE TO PT IN ROOM WHO INDICATED SHE WANTS REHAB AT [facility] TO "START WITH" AND MAY CONSIDER [facility]. CHOICE SIGNED. CM FAXED REFERRAL TO [facility] AT [phone]. MIRIAN WILL FOLLOW UP WITH TIM OF [facility] TOMORROW REGARDING REHAB PLACEMENT REQUEST. MIRIAN WAITING ADMISSION DETERMINATION FROM [facility]. Jake Loredo, CASE MANAGEMENT
--- NOTE | 2017-02-08 19:15 | NUR ---
Received patient in bed resting, remains on Contact Isolation. On oxygen via humified trach mask @10L/min. No complaints voiced at this time.
--- NOTE | 2017-02-08 20:06 | NUR ---
Given [place] tab PRN for complaints of ribcage pain severity 08/31. "It hurts when I breathe". Patient covered over [facility] site with hand to speak. Will monitor for effectiveness.
--- NOTE | 2017-02-08 20:21 | NUR ---
Assisted onto bedpan, had medium soft formed brown stool, with 200mls of sandra colored urine. Pericare given.
--- NOTE | 2017-02-08 21:00 | NUR ---
Resting quietly at this time, reports analgesic effective, pain lessening.
[2017-02-08 21:40] VITALS: BP 114/76
[2017-02-09 02:00] VITALS: BP 105/55
--- NOTE | 2017-02-09 02:31 | NUR ---
Given [place] tab po PRN for ribcage pain. Will monitor for effectiveness.
--- NOTE | 2017-02-09 03:30 | NUR ---
Resting quietly at this time, analgesic effective.
[2017-02-09 04:22] LABS: BASOPHILS 0.4 % (0.0-2.0); EOSINOPHILS 1.4 % (0-7); HEMATOCRIT 28.3 % (36.0-48.0); HEMOGLOBIN 8.9 g/dL (12-16); IMMATURE GRANULOCYTES 4.2 % (0-5); LYMPHOCYTES 12.3 % (15-50); MCH 28.2 pg (26.0-34.0); MCHC 31.4 g/dL (31.0-37.0); MCV 89.6 fL (80.0-100.0); MEAN PLATELET VOLUME 11.6 fL (7.4-10.4); NEUTROPHILS 74.7 % (40-80); PLATELET COUNT 403 10x3/uL (130-400); RBC 3.16 10x6/uL (4.00-5.40); RDW 15.9 % (11.5-14.5)
--- NOTE | 2017-02-09 04:41 | NUR ---
Sleeping poorly this shift, numerous requests, call shepard on frequently, impatient and demanding. Restless and agitated, writing notes for various requests.
[2017-02-09 04:47] LABS: CALC OSMOLALITY 273 mosm/kg (275-300); CALCIUM 8.6 mg/dL (8.5-10.1); CARBON DIOXIDE 39.3 mmol/L (21.0-32.0); CHLORIDE - SERUM 88 mmol/L (98-107); CREATININE - SERUM 0.8 mg/dL (0.6-1.3); GLUCOSE 136 mg/dL (74-106); POTASSIUM - SERUM 3.4 mmol/L (3.5-5.1); SODIUM 134 mmol/L (136-145); UREA NITROGEN 24 mg/dL (7-18); eGFR NON AFRICAN AMERICAN 77 mL/min (90-120)
--- NOTE | 2017-02-09 05:45 | NUR ---
Given potassium supplement 40mEq per electrolyte protocol for K+ = 3.4 Serum level to be rechecked in four hours.
--- NOTE | 2017-02-09 07:15 | NUR ---
RESTING QUIETLY NAD NOTED
[2017-02-09 07:52] VITALS: BP 88/53
--- NOTE | 2017-02-09 11:13 | NUR ---
Patient Name: CELY ANN Encounter No: [id number] : 1955 Primary Insurance: MEDICARE A & B Anticipated DC Date: 02-10-2017 Planned Disposition: Care Home Facility External Planned Provider: [facility], MEDICARE REHAB BED DCP follow-up note: CM RECEIVED TELEPHONE MESSAGE FROM K[facility]I LUTZ OF [facility], REPORTING THAT [facility] WILL ACCEPT PT PENDING LEVEL 2 DELIA ASSESSMENT. [facility] HAS SUBMITTED ALL INFORMATION TO [facility] AND IS WAITING ON LEVEL 2 ASSESSEMENT. CM SPOKE TO MARY KAY OF [facility], , WHO VERIFIED THAT LEVEL 2 IS PENDING, EZEKIEL SHETH WILL BE COMPLETING THE ASSESSMENT. A SHORT TIME LATER, CM RECEIVED CALL FROM EZEKIEL SHETH WHO REPORTS SHE WILL VISIT WITH PT TODAY AND WILL NEED SOME MEDICAL INFORMATION WHEN SHE ARRIVES TO COMPLETE THE ASSESSMENT. CM SPOKE TO PT IN ROOM, PT STILL IN AGREEMENT WITH DISCHARGE PLAN OF [facility] AND WILL PARTICIPATE WITH EZEKIEL TO COMPLETE THE ASSESSMENT TODAY. CM WAITING ON LEVEL 2 DELIA COMPLETION. [facility] WILL ACCEPT PT WITH COMPLETION OF DELIA AND CLEARANCE BY DELIA TO ENTER INTERMEDIATE FACILITY. Jake Loredo, CASE MANAGEMENT
[2017-02-09 11:42] VITALS: BP 118/97
--- NOTE | 2017-02-09 13:28 | NUR ---
Nutrition follow-up: Pt is now assessed with severe malnutrition of chronic illness R/T COPD with TRACH AEB < 75% intake of estimated energy needs for > 1 month; noted subcutaneous fat, muscle loss from extremities, shoulder, collar bone areas and noted temporal wasting; ~5% weight loss in 7 days. Diet: low sodium PO intake still very poor. May need to consider nutrition support - NGT placement vs PEG tube placement RDN following.
--- NOTE | 2017-02-09 14:07 | NUR ---
APICAL 102 PRIOR TO DIGOXIN ADMINISTRATION
--- NOTE | 2017-02-09 14:13 | NUR ---
C/O PAIN LEFT PINKY FINGER/KNUCKLE AREA - COMMUNICATES BY WRITING - WROTE THAT IT IS BROKEN AND THAT SHE NEEDS HELP AND AN XRAY AND WANTS ME TO NOTIFY HER PHYSICIAN - PHYSICIAN PAGED
[2017-02-09 15:51] VITALS: BP 86/53
--- NOTE | 2017-02-09 19:45 | NUR ---
PT HS MEDS GIVEN AT THIS TIME WITH REQUESTED PAIN MEDICATION. PT DENIES FURTHER NEEDS. BED LOW. CL IN REACH.
--- NOTE | 2017-02-09 23:15 | NUR ---
PT RESTING, EYES CLOSED. RR ARE EVEN AND UNLABORED. WCTM. BED LOW. CL IN REACH.
[2017-02-10] VITALS: BP 98/59
--- NOTE | 2017-02-10 01:03 | NUR ---
PT UNUSUALLY LETHARGIC. CONSULTED WITH CHARGE NURSE AND REFUND CLERK. PT BACKPACK SEARCHED AND HOME MEDICATIONS FOUND. PT STATED SHE HAD NOT BEEN TAKING ANY OF THEM. TOLD PT THAT WE HAD TO LOCK THEM UP IN PHARMACY. PT WAS AGREEABLE.
--- NOTE | 2017-02-10 02:30 | NUR ---
PT REQ AND REC'D PRN PAIN MEDICATION. BED LOW. CL IN [facility].
[2017-02-10 04:00] VITALS: BP 114/68
--- NOTE | 2017-02-10 05:00 | NUR ---
PT AM MEDS ADMINISTERED. PT DENIES NEEDS. BED LOW. CL IN REACH.
[2017-02-10 05:36] LABS: BASOPHILS 0.4 % (0.0-2.0); EOSINOPHILS 2.7 % (0-7); HEMATOCRIT 26.4 % (36.0-48.0); HEMOGLOBIN 8.1 g/dL (12-16); IMMATURE GRANULOCYTES 4.5 % (0-5); LYMPHOCYTES 15.4 % (15-50); MCH 27.8 pg (26.0-34.0); MCHC 30.7 g/dL (31.0-37.0); MCV 90.7 fL (80.0-100.0); MEAN PLATELET VOLUME 11.6 fL (7.4-10.4); MONOCYTES 10.5 % (2-11); NEUTROPHILS 66.5 % (40-80); PLATELET COUNT 387 10x3/uL (130-400); RBC 2.91 10x6/uL (4.00-5.40); RDW 16.4 % (11.5-14.5); WBC 11.2 10x3/uL (4.8-10.8)
[2017-02-10 05:52] LABS: CALC OSMOLALITY 271 mosm/kg (275-300); CALCIUM 8.4 mg/dL (8.5-10.1); CARBON DIOXIDE 37.5 mmol/L (21.0-32.0); CHLORIDE - SERUM 90 mmol/L (98-107); CREATININE - SERUM 0.7 mg/dL (0.6-1.3); GLUCOSE 126 mg/dL (74-106); POTASSIUM - SERUM 4.1 mmol/L (3.5-5.1); SODIUM 133 mmol/L (136-145); UREA NITROGEN 25 mg/dL (7-18); eGFR NON AFRICAN AMERICAN 90 mL/min (90-120)
[2017-02-10 08:21] VITALS: BP 97/56
--- NOTE | 2017-02-10 09:05 | NUR ---
PATIENT REQUESTS PAIN MED, NORCO 10PO PROVIDED.
[2017-02-10 12:36] VITALS: BP 118/76
[2017-02-10 15:35] VITALS: BP 151/88
--- NOTE | 2017-02-10 15:53 | NUR ---
PATIENT REQUESTS PAIN MED RATES PAIN 10/10, PROVIDED NORCO 10 PO NOW.
--- NOTE | 2017-02-10 16:30 | NUR ---
PATIENT SAYS PAIN IS 8-9/10.
--- NOTE | 2017-02-10 17:09 | NUR ---
PATIENT REQUESTS THAT THIS NURSE CALL FOR PAIN MEDICATION. DID CALL DR. CALLAHAN HE IS SELF [employer], ANSWERING SERVICE ASKED IF THE REQUEST IS AN EMERGENCY, I SAID "NO" SHE SAID "I'M SORRY THEN I WILL HAVE TO REFER YOU TO CALL DURING THE REGULAR BUSINESS HOURS" SHE APOLOGIZED. RELAYED TO PATIENT THAT THE DR'S WOULD HAVE TO REASSESS TOMORROW.
[2017-02-10 20:00] VITALS: BP 111/72
--- NOTE | 2017-02-10 21:30 | NUR ---
REPORT RECEIVED AND CARE ASSUMED. LYING IN BED WITH TRACH COLLAR ON. REQUESTING PAIN MEDICATION. SEE ASSESSMENT FLOW SHEET FOR FURTHER DETAILS. SAY HER RIGHT RIB AREA HAS A SHARP DISCOMFORT. NORCO GIVEN PO ORDERED. WILL CONTINUE TO MONITOR.
[2017-02-11] VITALS: BP 123/65
[2017-02-11 05:54] LABS: BASOPHILS 0.5 % (0.0-2.0); EOSINOPHILS 2.8 % (0-7); HEMATOCRIT 26.9 % (36.0-48.0); HEMOGLOBIN 8.4 g/dL (12-16); IMMATURE GRANULOCYTES 3.7 % (0-5); LYMPHOCYTES 19.1 % (15-50); MCH 28.3 pg (26.0-34.0); MCHC 31.2 g/dL (31.0-37.0); MCV 90.6 fL (80.0-100.0); MEAN PLATELET VOLUME 11.1 fL (7.4-10.4); MONOCYTES 7.6 % (2-11); NEUTROPHILS 66.3 % (40-80); PLATELET COUNT 413 10x3/uL (130-400); RBC 2.97 10x6/uL (4.00-5.40); RDW 16.6 % (11.5-14.5); WBC 9.3 10x3/uL (4.8-10.8)
[2017-02-11 06:14] LABS: CALC OSMOLALITY 267 mosm/kg (275-300); CALCIUM 8.7 mg/dL (8.5-10.1); CARBON DIOXIDE 38.4 mmol/L (21.0-32.0); CHLORIDE - SERUM 92 mmol/L (98-107); CREATININE - SERUM 0.7 mg/dL (0.6-1.3); GLUCOSE 111 mg/dL (74-106); POTASSIUM - SERUM 3.9 mmol/L (3.5-5.1); SODIUM 133 mmol/L (136-145); eGFR NON AFRICAN AMERICAN 90 mL/min (90-120)
[2017-02-11 06:17] LABS: UREA NITROGEN 16 mg/dL (7-18)
[2017-02-11 06:28] VITALS: BP 125/67
[2017-02-11 08:17] VITALS: BP 97/59
--- NOTE | 2017-02-11 08:40 | NUR ---
PATIENT LAYING IN BED. ALERT AND ORIENTED. TRACH STOMA WITH 10L/MIN PER TRACH COLLAR. FREQUENT COUGH. C/O PAIN TO NECK/BACK 08/01. NORCO 10 ADMINISTERED PRN PER ORDERS. ASSISTED TO BSC. ISOLATION DUE TO C DIFF.
--- NOTE | 2017-02-11 09:00 | NUR ---
FREQUENTLY ON HER CALL LIGHT WITH MANY REQUEST. SOON STAFF WALKS OUT SHE IS PUSHING IT AGAIN WITH SOME REQUEST SHE CAN PROVIDE FOR HERSELF. APPEARS HELPLESS.
--- NOTE | 2017-02-11 10:25 | NUR ---
PAIN REASSESSED. STILL 08/01 WITH NO RELIEF.
[2017-02-11 11:50] VITALS: BP 95/58
--- NOTE | 2017-02-11 12:40 | NUR ---
MEDS ADMINISTERED WITHOUT DIFFICULTY PER ORDERS. STILL CONTINUES TO C/O OF PAIN. NO RELIEF TODAY EVEN WITH PAIN MED. EXPLAINED TO PATIENT PAIN MED NOT DUE UNTIL 1500.
--- NOTE | 2017-02-11 15:48 | NUR ---
MED ADMINISTERED WITHOUT DIFFICULTY. PRN PAIN MED ADMINISTERED FOR PAIN 08/01.
[2017-02-11 16:11] VITALS: BP 107/64
--- NOTE | 2017-02-11 17:15 | NUR ---
PAIN REASSESSED AT 8/10 AFTER PRN NORCO. ROUTINE MEDS ADMINISTERED PER ORDERS. DINNER TAKEN TO PATIENT.
--- NOTE | 2017-02-11 19:45 | NUR ---
REPORT RECEIVED AND CARE ASSUMED. LYING IN BED HOB ELEVATED 60 DEGREES. NO SIGNS OF DISTRESS NOTED. SEE ASSESSMENT FLOW SHEET FOR FURTHER DETAILS. BED IN LOW POSITION AND CALL LIGHT IN EASY REACH.
[2017-02-11 20:00] VITALS: BP 126/83
[2017-02-12] VITALS: BP 114/63
[2017-02-12 04:56] LABS: CALC OSMOLALITY 268 mosm/kg (275-300); CALCIUM 8.6 mg/dL (8.5-10.1); CARBON DIOXIDE 36.5 mmol/L (21.0-32.0); CHLORIDE - SERUM 93 mmol/L (98-107); CREATININE - SERUM 0.7 mg/dL (0.6-1.3); GLUCOSE 104 mg/dL (74-106); SODIUM 134 mmol/L (136-145); UREA NITROGEN 15 mg/dL (7-18); eGFR NON AFRICAN AMERICAN 90 mL/min (90-120)
[2017-02-12 05:00] LABS: POTASSIUM - SERUM 5.3 mmol/L (3.5-5.1)
--- NOTE | 2017-02-12 07:55 | NUR ---
0740-IN ENTERIC ISOLATION. APPEARS TO BE ASLEEP, LAYING ON RIGHT SIDE. RESP. ARE EVEN AND NON LABORED. HUMMIFIED O2 TRACH COLLAR IN USE. WILL CONTINUE TO MONITOR.
[2017-02-12 08:08] LABS: BASOPHILS 0.7 % (0.0-2.0); EOSINOPHILS 1.6 % (0-7); HEMATOCRIT 26.3 % (36.0-48.0); HEMOGLOBIN 8.2 g/dL (12-16); IMMATURE GRANULOCYTES 2.9 % (0-5); LYMPHOCYTES 14.3 % (15-50); MCH 28.1 pg (26.0-34.0); MCHC 31.2 g/dL (31.0-37.0); MCV 90.1 fL (80.0-100.0); MEAN PLATELET VOLUME 11.1 fL (7.4-10.4); MONOCYTES 9.8 % (2-11); NEUTROPHILS 70.7 % (40-80); PLATELET COUNT 456 10x3/uL (130-400); RBC 2.92 10x6/uL (4.00-5.40); RDW 16.6 % (11.5-14.5)
[2017-02-12 09:30] VITALS: BP 96/54
--- NOTE | 2017-02-12 09:49 | NUR ---
0846-CALLED TO ROOM PER CALL LIGHT. PATIENT HAS DIARREHA ON GOWN AND IN BSC AND LINENS. COMPLETE LINEN CHANGE DONE, WILL HOLD MIRALAX EVEN THOUGH PATIENT ASKED FOR IT. WILL CONTINUE TO MONITOR.
--- NOTE | 2017-02-12 11:47 | NUR ---
Patient Name: CELY ANN Encounter No: [id number] : 1955 Primary Insurance: MEDICARE A & B Anticipated DC Date: 02-12-2017 Planned Disposition: Alf Facility External Planned Provider: [facility], MEDICARE REHAB BED DCP follow-up note: CM RECEIVED [employer] SCREENING APPROVAL FOR ENTRY INTO SNF FACILITY. CM CALLED AND SPOKE TO BOLIVAR AT [facility], , WHO REPORTS THEY WILL ACCEPT PT TODAY. CM SPOKE TO PT IN ROOM, PT IN AGREEMENT WITH DISCHARGE TO [facility] TODAY. IMPORTANT MESSAGE FROM MEDICARE PROVIDED AND EXPLAINED. PT WILL NOTIFY HER FRIEND AMARIS VIA PHONE. CM NOTIFIED CIVIL LAWYER NURSE. FOR DISCHARGE TODAY, FAX DISCHARGE INFORMATION TO [facility] AT [phone]. NURSE REPORT TO BE CALLED TO [facility] AT [phone]. PT TO [facility]IA AMBULANCE. Jake Loredo, CASE MANAGEMENT
--- NOTE | 2017-02-12 16:54 | NUR ---
VERBAL AND WRITTEN DISCHARGE INSTRUCTION GIVEN TO PATIENT. PATIENT DISCHARGED [facility]IA [facility]. GOING TO [facility].
== END 2017-02-12 16:55 | DRG 189 ==
LOC: D.ER 17:24 → D.M2 19:49
PROVIDERS: Family Medicine; ADMIT Family Medicine
DX: J81.0 Acute pulmonary edema (principal); J96.00 Acute respiratory failure, unspecified whether with hypoxia or hypercapnia; A04.7 Enterocolitis due to Clostridium difficile; D50.9 Iron deficiency anemia, unspecified; J44.9 Chronic obstructive pulmonary disease, unspecified; I10 Essential (primary) hypertension; G62.9 Polyneuropathy, unspecified; I48.91 Unspecified atrial fibrillation; R00.0 Tachycardia, unspecified; I95.9 Hypotension, unspecified; Z87.891 Personal history of nicotine dependence

== ENCOUNTER 2017-06-23 09:05 | Day surgery (SDC) | payer MEDICARE ==
[~2017-06-23] VITALS: Ht 162.6 cm; Wt 54.5 kg
[2017-06-23] VITALS (10 sets, daily range): BP systolic 107–132; BP diastolic 55–86; Ht 162.6 cm; Wt 54.5 kg
[2017-06-23 10:04] LABS: HEMATOCRIT 38.2 % (36.0-48.0); HEMOGLOBIN 12.2 g/dL (12-16); MCH 28.4 pg (26.0-34.0); MCHC 31.9 g/dL (31.0-37.0); MEAN PLATELET VOLUME 10.8 fL (7.4-10.4); RBC 4.29 10x6/uL (4.00-5.40); RDW 14.5 % (11.5-14.5); WBC 4.3 10x3/uL (4.8-10.8)
[2017-06-23 10:11] LABS: CALC OSMOLALITY 281 mosm/kg (275-300); CALCIUM 9.6 mg/dL (8.5-10.1); CHLORIDE - SERUM 102 mmol/L (98-107); CREATININE - SERUM 0.5 mg/dL (0.6-1.3); GLUCOSE 101 mg/dL (74-106); POTASSIUM - SERUM 4.8 mmol/L (3.5-5.1); SODIUM 141 mmol/L (136-145); UREA NITROGEN 14 mg/dL (7-18); eGFR NON AFRICAN AMERICAN > 90 mL/min (90-120)
[2017-06-23 10:12] LABS: APTT 25.5 SECONDS (22.8-39.4); INR 0.96 (0.85-1.17); PROTIME 12.6 SECONDS (11.6-15.0)
--- NOTE | 2017-06-23 10:22 | NUR ---
1020 TO XRAY VIA .
[2017-06-23 10:40] LABS: APPEARANCE HAZY (CLEAR); BILIRUBIN NEGATIVE (NEGATIVE); COLOR YELLOW (YELLOW); GLUCOSE NEGATIVE (NEGATIVE); KETONE NEGATIVE (NEGATIVE); LEUKOCYTE ESTERASE NEGATIVE (NEGATIVE); NITRITE NEGATIVE (NEGATIVE); PROTEIN NEGATIVE (NEGATIVE); UROBILINOGEN NORMAL (NORMAL)
--- NOTE | 2017-06-23 14:18 | NUR ---
MINERAL OIL USED FOR LUBRICATION.
--- NOTE | 2017-06-23 15:00 | NUR ---
TO ROOM 2217 FROM PACU VIA BED.VSS. 02 SATS 100% ON 4 LITERS PER TRACH COLLAR.ORIENTATION TO ROOM.CALL LIGHT IN REACH.
--- NOTE | 2017-06-23 15:30 | NUR ---
KEEPS TAKING BP CUFF OFF. SHE IS AWAKE AND ALERT. SHE IS DIGGING IN HER BAG FROM HOME FOR PHONE AND GLASSES.INSTRUCTED TO LEAVE BP CUFF ON. PT HAS VOIDED 300CC IN BEDPAN.MONITOR FOR NEEDS
--- NOTE | 2017-06-23 20:00 | NUR ---
ASSESSMENT PER FLOWSHEET.ALERT/ORIENTED. HAS TRACH MIDLINE NECK WITH TRACH COLLAR O2 AT 4L/M. IV PATENT RT WIRST OF NS AT 30CC'S/HR SITE CLEAR. SR UP X2 CALL LIGHT WITHIN REACH.
--- NOTE | 2017-06-23 21:00 | NUR ---
MEDS PER JAN. PLACED ON BEDPAN VOIDS FREELY.
--- NOTE | 2017-06-23 21:54 | NUR ---
C/O PAIN IN HER JOINTS MORPHINE 4MG IVP GIVEN FOR PAIN CONTROL.
--- NOTE | 2017-06-23 23:00 | NUR ---
PLACED ON BEDPAN VOIDS WELL.
[2017-06-24] VITALS: BP 113/62
--- NOTE | 2017-06-24 01:37 | NUR ---
C/O PAIN IN JOINTS. RATES PAIN #6. MORPHINE 4MG IVP GIVEN FOR PAIN CONTROL.
[2017-06-24 04:00] VITALS: BP 120/60
--- NOTE | 2017-06-24 04:30 | NUR ---
PLACED ON BEDPAN. VOIDS FREELY
--- NOTE | 2017-06-24 07:15 | NUR ---
REPORT RECEIVED FROM SOLDER MAKING LABORER NURSE. CALL LIGHT IN REACH.
--- NOTE | 2017-06-24 07:47 | NUR ---
PATIENT IN BED WITH IV INTACT. NO COMPLAINTS. STATES NO NEEDS AT THIS TIME. CALL LIGHT WITHIN REACH.
--- NOTE | 2017-06-24 08:01 | NUR ---
ASSESSMENT COMPLETED. MORPHINE 4 MG SIVP PER C/O PAIN OF 10. CALL LIGHT IN REACH. WILL CONTINUE WITH PLAN OF CARE.
[2017-06-24 08:35] VITALS: BP 131/84
--- NOTE | 2017-06-24 10:12 | NUR ---
IV DC'D WITH TIP INTACT.
--- NOTE | 2017-06-24 10:31 | NUR ---
REPORT CALLED TO ABDIEL LOUIE, AT [facility].
--- NOTE | 2017-06-24 10:35 | NUR ---
DC'D TO [facility] WITH [facility] EMPLOYEE.
--- NOTE | 2017-06-26 11:13 | OP ---
PATIENT NAME: CELY ANN MEDICAL RECORD: [id number] :55 LOCATION:D.OPS ADMISSION DATE: SURGEON: RUBEN KELLEY MD DATE OF OPERATION: 06/23/2017 SURGEON: Ruben Kelley MD ANESTHESIA: General, Dr. Smith. OPERATION PERFORMED: Esophageal dilatation. PREOPERATIVE DIAGNOSIS: Esophageal stricture in the cervical area. 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 She underwent placement of a free jejunal graft connected to the external carotid artery and facial vein. The patient has done well over the years, but has required dilatations in the past. She is currently unable to swallow her pills; therefore, she is being admitted for esophageal dilatation. Savary dilators were used with fluoroscope. She was dilated from a 15-Maldivian to 44-Maldivian without difficulty. The wires and dilators were removed and she was transferred to postanesthesia recovery in satisfactory condition. TRANSINT:[id number] Voice Confirmation ID: [id number] DOCUMENT ID: [id number] RUBEN KELLEY MD at 1113 CC: [id number] DICTATION DATE: 06/23/17 1413 DEVICE SALES CONSULTANT: 06/23/171950 [facility] 06/24/17 [address] [place] [address]
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
== END 2017-06-24 10:35 ==
LOC: D.MS 09:05 → D.OPS 09:05 → D.MS 14:57 → D.OPS 06-24 10:35
PROVIDERS: Internal Medicine Cardiovascular Disease
DX: K22.2 Esophageal obstruction (principal); E03.9 Hypothyroidism, unspecified; D64.9 Anemia, unspecified; J30.9 Allergic rhinitis, unspecified; J44.9 Chronic obstructive pulmonary disease, unspecified; K21.9 Gastro-esophageal reflux disease without esophagitis; I10 Essential (primary) hypertension; Z87.891 Personal history of nicotine dependence; Z01.812 Encounter for preprocedural laboratory examination

== ENCOUNTER 2017-08-22 11:00 | Emergency (ER) | payer MEDICARE ==
[2017-06-23 16:11] VITALS: BMI 20.6
== END 2017-08-22 14:44 ==
LOC: D.ER 11:00
DX: M13.0 Polyarthritis, unspecified (principal); Z87.09 Personal history of other diseases of the respiratory system; J20.9 Acute bronchitis, unspecified; F17.200 Nicotine dependence, unspecified, uncomplicated

== ENCOUNTER 2017-11-01 09:07 | Emergency (ER) | payer MEDICARE ==
[2017-06-23 16:11] VITALS: BMI 20.6
== END 2017-11-01 11:28 | disposition home or self-care (01) ==
LOC: D.ER 09:07
DX: G89.29 Other chronic pain (principal); Z93.0 Tracheostomy status

== ENCOUNTER 2017-12-26 13:25 | Emergency (ER) | payer MEDICARE ==
[2017-06-23 16:11] VITALS: BMI 20.6
[2017-12-26 14:28] LABS: APPEARANCE CLEAR (CLEAR); BILIRUBIN NEGATIVE (NEGATIVE); COLOR STRAW (YELLOW); GLUCOSE NEGATIVE (NEGATIVE); KETONE NEGATIVE (NEGATIVE); NITRITE NEGATIVE (NEGATIVE); PROTEIN 2+ mg/dL (NEGATIVE); UROBILINOGEN NORMAL (NORMAL)
[2017-12-26 14:31] LABS: BACTERIA FEW /hpf (NONE SEEN); EPITHELIAL CELLS OCC /hpf (0-5); RED CELLS - URINE OCC /hpf (0-5); WHITE CELLS - URINE OCC /hpf (0-5); YEAST <1+ /hpf (NONE SEEN)
[2017-12-26 15:02] LABS: BASOPHILS 0.3 % (0-2); EOSINOPHILS 0.5 % (0-7); HEMATOCRIT 43.3 % (36.0-48.0); HEMOGLOBIN 13.9 g/dL (12-16); IMMATURE GRANULOCYTES 0.4 % (0-5); LYMPHOCYTES 9.7 % (15-50); MCH 30.8 pg (26.0-34.0); MCHC 32.1 g/dL (31.0-37.0); MCV 95.8 fL (80.0-100.0); MEAN PLATELET VOLUME 11.4 fL (7.4-10.4); MONOCYTES 2.3 % (2-11); NEUTROPHILS 86.8 % (40-80); PLATELET COUNT 236 10x3/uL (130-400); RBC 4.52 10x6/uL (4.00-5.40); WBC 7.9 10x3/uL (4.8-10.8)
[2017-12-26 15:05] LABS: INR 0.92 (0.85-1.17)
[2017-12-26 15:34] LABS: ALBUMIN 4.5 g/dL (3.4-5.0); ALKALINE PHOSPHATASE 91 U/L (46-116); ALT (SGPT) 21 U/L (10-68); BILIRUBIN - TOTAL 0.41 mg/dL (0.2-1.3); CALC OSMOLALITY 264 mosm/kg (275-300); CARBON DIOXIDE 29.3 mmol/L (21.0-32.0); CHLORIDE - SERUM 97 mmol/L (98-107); CREATININE - SERUM 0.6 mg/dL (0.6-1.3); GLUCOSE 127 mg/dL (74-106); POTASSIUM - SERUM 4.6 mmol/L (3.5-5.1); PROTEIN - SERUM 7.4 g/dL (6.4-8.2); SODIUM 129 mmol/L (136-145); UREA NITROGEN 23 mg/dL (7-18); eGFR NON AFRICAN AMERICAN > 90 mL/min (90-120)
[2017-12-26 15:44] LABS: CREATINE KINASE 60 UL (21-215); MAGNESIUM - SERUM 2.1 mg/dL (1.8-2.4); PRO BNP 1367 pg/mL (0-125); THYROID STIMULATING HORMONE 0.04 uIU/mL (0.36-3.74); TROPONIN-I 0.042 ng/mL (0.000-0.060)
== END 2017-12-26 17:50 | disposition home or self-care (01) ==
LOC: D.ER 13:25
PROVIDERS: Nurse Practitioner Family
DX: E87.1 Hypo-osmolality and hyponatremia (principal); J44.9 Chronic obstructive pulmonary disease, unspecified; Z99.81 Dependence on supplemental oxygen; Z93.0 Tracheostomy status; R00.0 Tachycardia, unspecified; I49.3 Ventricular premature depolarization

== ENCOUNTER 2018-01-08 07:02 | Emergency (ER) | payer MEDICARE ==
[2017-06-23 16:11] VITALS: BMI 20.6
[2018-01-08 08:18] LABS: APPEARANCE CLEAR (CLEAR); BILIRUBIN NEGATIVE (NEGATIVE); COLOR STRAW (YELLOW); GLUCOSE NEGATIVE (NEGATIVE); KETONE NEGATIVE (NEGATIVE); NITRITE NEGATIVE (NEGATIVE); PROTEIN 1+ mg/dL (NEGATIVE); UROBILINOGEN NORMAL (NORMAL)
[2018-01-08 08:33] LABS: BACTERIA FEW /hpf (NONE SEEN); EPITHELIAL CELLS OCC /hpf (0-5); RED CELLS - URINE 0-5 /hpf (0-5); WHITE CELLS - URINE 0-5 /hpf (0-5)
[2018-01-08 10:20] LABS: BASOPHILS 0.2 % (0-2); HEMATOCRIT 41.7 % (36.0-48.0); HEMOGLOBIN 13.1 g/dL (12-16); IMMATURE GRANULOCYTES 0.3 % (0-5); LYMPHOCYTES 6.9 % (15-50); MCH 30.7 pg (26.0-34.0); MCHC 31.4 g/dL (31.0-37.0); MCV 97.7 fL (80.0-100.0); MEAN PLATELET VOLUME 11.1 fL (7.4-10.4); NEUTROPHILS 87.6 % (40-80); RBC 4.27 10x6/uL (4.00-5.40); RDW 12.8 % (11.5-14.5); WBC 9.6 10x3/uL (4.8-10.8)
[2018-01-08 10:22] LABS: PLATELET COUNT 158 10x3/uL (130-400)
[2018-01-08 10:32] LABS: ALKALINE PHOSPHATASE 97 U/L (46-116); ALT (SGPT) 23 U/L (10-68); BILIRUBIN - TOTAL 0.13 mg/dL (0.2-1.3); CALC OSMOLALITY 284 mosm/kg (275-300); CALCIUM 8.9 mg/dL (8.5-10.1); CARBON DIOXIDE 31.3 mmol/L (21.0-32.0); CHLORIDE - SERUM 103 mmol/L (98-107); CREATININE - SERUM 0.7 mg/dL (0.6-1.3); GLUCOSE 121 mg/dL (74-106); POTASSIUM - SERUM 4.1 mmol/L (3.5-5.1); PROTEIN - SERUM 7.3 g/dL (6.4-8.2); SODIUM 141 mmol/L (136-145); UREA NITROGEN 21 mg/dL (7-18); eGFR NON AFRICAN AMERICAN 90 mL/min (90-120)
[2018-01-08 10:40] LABS: PRO BNP 406 pg/mL (0-125)
== END 2018-01-08 12:21 ==
LOC: D.ER 07:02
PROVIDERS: Emergency Medicine
DX: J44.1 Chronic obstructive pulmonary disease with (acute) exacerbation (principal); Z99.81 Dependence on supplemental oxygen; R00.0 Tachycardia, unspecified

== ENCOUNTER 2018-03-30 22:39 | Inpatient (IN) | payer MEDICARE ==
[~2018-03-30] VITALS: Ht 162.6 cm; Wt 56.7 kg
--- NOTE | ~2018-03-30 | OP ---
PATIENT NAME: CELY ANN MEDICAL RECORD: [id number] :55 LOCATION:D.MS [place]2225 ADMISSION DATE:03/31/18 SURGEON: DAYTON HULL MD DATE OF OPERATION: 04/02/2018 PREOPERATIVE DIAGNOSES: 1. Left pneumothorax. 2. Dysphagia. 3. Aspiration pneumonia. POSTOPERATIVE DIAGNOSES: 1. Left pneumothorax. 2. Dysphagia. 3. Aspiration pneumonia. PROCEDURE: A 24-South Sudanese left chest tube placement. SURGEON: Dayton Hull MD REPORT OF PROCEDURE: The patient's left chest was prepped and draped in sterile fashion. A total of 10 cc of 1% lidocaine was infused into the subcutaneous tissues. A #11 blade was used to make a skin incision on the left chest and we came just over what appeared to be about the 7th or 8th rib space. I bluntly penetrated the patient's thoracic cavity and there was return of air. A chest tube was inserted and sutured into place with 2-0 silks. This was then affixed to a Pleur-Evac and dressed appropriately. COMPLICATIONS: None. CONDITION: Stable. ANESTHESIA: Local. BLOOD LOSS: Minimal. Procedure done at the bedside. TRANSINT:[id number] Voice Confirmation ID: [id number] DOCUMENT ID: [id number] DAYTON HULL MD at 1031 CC: [id number] DICTATION DATE: 04/02/18 1246 TOOL SHARPENER: 04/02/18 1502 DIS IN 04/05/18 [address] [place] [address]
--- NOTE | ~2018-03-30 | OP ---
PATIENT NAME: CELY ANN MEDICAL RECORD: [id number] :55 LOCATION:D.MS [place]2225 ADMISSION DATE:03/31/18 SURGEON: DAYTON HULL MD DATE OF OPERATION: 04/02/2018 PREOPERATIVE DIAGNOSES: 1. Need for IV access. 2. Dysphagia. 3. Aspiration pneumonia. 4. Chronic obstructive pulmonary disease. 5. History of tracheotomy. POSTOPERATIVE DIAGNOSES: 1. Need for IV access. 2. Dysphagia. 3. Aspiration pneumonia. 4. Chronic obstructive pulmonary disease. 5. History of tracheotomy. PROCEDURE: Left subclavian vein triple-lumen central venous line placement. SURGEON: Dayton Hull MD REPORT OF PROCEDURE: The patient's left chest was prepped and draped in sterile fashion. A total of 5 cc of 1% lidocaine was infused into the subcutaneous tissues. A needle was used to eventually cannulate the left subclavian vein and a guidewire was advanced with ease. Over this wire, a dilator was placed followed by the triple lumen catheter. The catheter aspirated nonpulsatile dark blood and flushed easily with normal saline. This was sutured into place with 3-0 silk ties and dressed appropriately. Upon attempts to access the subclavian vein, I accessed the subclavian artery a couple of times and also got a return of air 3-4 other times. A stat chest x-ray was ordered postoperatively. CONDITION: Stable. ANESTHESIA: Local. BLOOD LOSS: Minimal. Procedure done at the bedside. TRANSINT:[id number] Voice Confirmation ID: [id number] DOCUMENT ID: [id number] DAYTON HULL MD at 1031 CC: [id number] DICTATION DATE: 04/02/18 1151 ARMATURE BANDER: 04/02/18 1502 DIS IN 04/05/18 [id number] [place] [address]
[2018-03-30 23:44] LABS: HEMATOCRIT 39.1 % (36.0-48.0); HEMOGLOBIN 12.7 g/dL (12-16); LYMPHOCYTES 8.1 % (15-50); MCH 30.7 pg (26.0-34.0); MCHC 32.5 g/dL (31.0-37.0); MCV 94.4 fL (80.0-100.0); MEAN PLATELET VOLUME 10.9 fL (7.4-10.4); NEUTROPHILS 87.5 % (40-80); PLATELET COUNT 147 10x3/uL (130-400); RBC 4.14 10x6/uL (4.00-5.40); RDW 12.8 % (11.5-14.5); WBC 15.9 10x3/uL (4.8-10.8)
[2018-03-30 23:59] LABS: ALBUMIN 3.8 g/dL (3.4-5.0); ALKALINE PHOSPHATASE 58 U/L (46-116); ALT (SGPT) 15 U/L (10-68); BILIRUBIN - TOTAL 0.59 mg/dL (0.2-1.3); CALC OSMOLALITY 280 mosm/kg (275-300); CALCIUM 10.1 mg/dL (8.5-10.1); CARBON DIOXIDE 33.4 mmol/L (21.0-32.0); CHLORIDE - SERUM 101 mmol/L (98-107); CREATININE - SERUM 0.7 mg/dL (0.6-1.3); GLUCOSE 98 mg/dL (74-106); POTASSIUM - SERUM 4.1 mmol/L (3.5-5.1); PROTEIN - SERUM 7.2 g/dL (6.4-8.2); SODIUM 138 mmol/L (136-145); UREA NITROGEN 26 mg/dL (7-18); eGFR NON AFRICAN AMERICAN 90 mL/min (90-120)
[2018-03-31 01:18] LABS: APPEARANCE CLEAR (CLEAR); BILIRUBIN NEGATIVE (NEGATIVE); COLOR YELLOW (YELLOW); GLUCOSE NEGATIVE (NEGATIVE); KETONE NEGATIVE (NEGATIVE); NITRITE NEGATIVE (NEGATIVE); PROTEIN 3+ mg/dL (NEGATIVE); SPECIFIC GRAVITY 1.015 (1.005-1.020); UROBILINOGEN NORMAL (NORMAL)
[2018-03-31 01:19] LABS: EPITHELIAL CELLS NSEEN /hpf (0-5); RED CELLS - URINE 0-5 /hpf (0-5); WHITE CELLS - URINE NSEEN /hpf (0-5)
[2018-03-31 01:20] LABS: BACTERIA FEW /hpf (NONE SEEN)
[2018-03-31 02:38] VITALS: BP 155/94; BMI 21.5
[2018-03-31] MEDS ORDERED: ATIVAN1 MG PO (03:08)
[2018-03-31] MEDS ORDERED: BYSTOLIC5 MG PO (03:10)
[2018-03-31] MEDS ORDERED: TESSALON PERLE100 MG PO (03:10)
[2018-03-31] MEDS ORDERED: MELATONIN 3 MG1 TAB PO (03:11)
[2018-03-31] MEDS ORDERED: MOBIC7.5 MG PO (03:11)
[2018-03-31] MEDS ORDERED: ASPERCREME 5 OZ5 OZ TOPICAL (03:13)
[2018-03-31] MEDS ORDERED: MYLANTA / MAALO30 ML PO (03:14)
[2018-03-31] MEDS ORDERED: ZOFRAN4 MG PO (03:15)
[2018-03-31] MEDS ORDERED: TRAZODONE HCL50 MG PO (03:15)
[2018-03-31] MEDS ORDERED: PREDNISONE10 MG PO (03:17)
[2018-03-31] MEDS ORDERED: ZANAFLEX4 MG PO (03:18)
[2018-03-31 06:07] VITALS: BP 155/94
[2018-03-31 09:30] VITALS: BP 156/90
[2018-03-31 13:07] VITALS: Ht 162.6 cm; Wt 56.7 kg
[2018-03-31 13:45] VITALS: BP 181/93
[2018-03-31 16:15] VITALS: BP 158/91
[2018-03-31 20:00] VITALS: BP 167/85
[2018-04-01] VITALS: BP 168/88
[2018-04-01 04:00] VITALS: BP 177/105
[2018-04-01 06:22] LABS: BASOPHILS 0.1 % (0-2); EOSINOPHILS 0.1 % (0-7); HEMATOCRIT 42.1 % (36.0-48.0); HEMOGLOBIN 13.5 g/dL (12-16); IMMATURE GRANULOCYTES 0.2 % (0-5); LYMPHOCYTES 2.9 % (15-50); MCH 30.8 pg (26.0-34.0); MCHC 32.1 g/dL (31.0-37.0); MCV 95.9 fL (80.0-100.0); NEUTROPHILS 95.7 % (40-80); RBC 4.39 10x6/uL (4.00-5.40); WBC 16.1 10x3/uL (4.8-10.8)
[2018-04-01 06:25] LABS: PLATELET COUNT 192 10x3/uL (130-400)
[2018-04-01 06:34] LABS: ALBUMIN 3.5 g/dL (3.4-5.0); ALKALINE PHOSPHATASE 76 U/L (46-116); ALT (SGPT) 13 U/L (10-68); CALC OSMOLALITY 280 mosm/kg (275-300); CALCIUM 8.7 mg/dL (8.5-10.1); CHLORIDE - SERUM 102 mmol/L (98-107); CREATININE - SERUM 0.7 mg/dL (0.6-1.3); GLUCOSE 87 mg/dL (74-106); PHOSPHOROUS 2.7 mg/dL (2.5-4.9); POTASSIUM - SERUM 4.3 mmol/L (3.5-5.1); PROTEIN - SERUM 6.9 g/dL (6.4-8.2); SODIUM 139 mmol/L (136-145); UREA NITROGEN 23 mg/dL (7-18); eGFR NON AFRICAN AMERICAN 90 mL/min (90-120)
[2018-04-01 06:50] LABS: CARBON DIOXIDE 21.7 mmol/L (21.0-32.0)
[2018-04-01 07:52] VITALS: BP 165/86
[2018-04-01 12:02] VITALS: BP 199/105
[2018-04-01 16:25] LABS: CKMB 1.6 U/L (0.0-3.6); CREATINE KINASE 64 UL (21-215)
[2018-04-01 16:26] LABS: TROPONIN-I < 0.017 ng/mL (0.000-0.060)
[2018-04-01 17:14] VITALS: BP 189/102
[2018-04-01 21:12] VITALS: BP 198/101
[2018-04-02 04:01] VITALS: BP 180/88
[2018-04-02 08:31] VITALS: BP 196/94
[2018-04-02 12:32] VITALS: BP 208/113
[2018-04-02 16:13] VITALS: BP 87/55
[2018-04-02 22:35] VITALS: BP 112/78
[2018-04-03 04:40] LABS: BASOPHILS 0.1 % (0-2); EOSINOPHILS 0 % (0-7); IMMATURE GRANULOCYTES 0.7 % (0-5); LYMPHOCYTES 2.6 % (15-50); MCH 30.1 pg (26.0-34.0); MCHC 32.2 g/dL (31.0-37.0); MONOCYTES 5.7 % (2-11); NEUTROPHILS 90.9 % (40-80); PLATELET COUNT 229 10x3/uL (130-400); RDW 13.2 % (11.5-14.5); WBC 19.1 10x3/uL (4.8-10.8)
[2018-04-03 04:43] LABS: HEMATOCRIT 29.8 % (36.0-48.0); HEMOGLOBIN 9.6 g/dL (12-16); MCV 93.4 fL (80.0-100.0); RBC 3.19 10x6/uL (4.00-5.40)
[2018-04-03 05:06] LABS: BILIRUBIN - TOTAL 0.33 mg/dL (0.2-1.3); CALCIUM 7.8 mg/dL (8.5-10.1); CARBON DIOXIDE 21.2 mmol/L (21.0-32.0); PROTEIN - SERUM 5.8 g/dL (6.4-8.2)
[2018-04-03 05:12] LABS: CREATININE - SERUM 1.1 mg/dL (0.6-1.3)
[2018-04-03 05:16] LABS: ANION GAP 15.6 mmol/L (8-16); POTASSIUM - SERUM 3.8 mmol/L (3.5-5.1)
[2018-04-03 07:10] VITALS: BP 123/60
[2018-04-03 08:25] VITALS: BP 116/55
[2018-04-03 12:11] VITALS: BP 102/59
[2018-04-03 16:42] VITALS: BP 90/53
[2018-04-03 17:33] LABS: HEMATOCRIT 25.8 % (36.0-48.0); HEMOGLOBIN 8.4 g/dL (12-16)
[2018-04-03 20:43] VITALS: BP 100/59
[2018-04-04 00:10] VITALS: BP 130/66
[2018-04-04 05:12] VITALS: BP 115/61
[2018-04-04 06:13] LABS: HEMATOCRIT 26.4 % (36.0-48.0); HEMOGLOBIN 8.4 g/dL (12-16); MCHC 31.8 g/dL (31.0-37.0); MCV 94.3 fL (80.0-100.0); MEAN PLATELET VOLUME 12.3 fL (7.4-10.4); PLATELET COUNT 215 10x3/uL (130-400); RDW 13.5 % (11.5-14.5)
[2018-04-04 06:33] LABS: % SATURATION 56 % (15-55); IRON 134 ug/dl (35-150); TOTAL IRON BIND CAPACITY 238 ug/dl (260-445); UNSAT IRON BIND CAPACITY 104 ug/dl (150-375)
[2018-04-04 06:36] LABS: BILIRUBIN - TOTAL 0.28 mg/dL (0.2-1.3); CALCIUM 7.6 mg/dL (8.5-10.1); CARBON DIOXIDE 18.2 mmol/L (21.0-32.0); CREATININE - SERUM 1.1 mg/dL (0.6-1.3); MAGNESIUM - SERUM 2.1 mg/dL (1.8-2.4); PHOSPHOROUS 1.6 mg/dL (2.5-4.9); POTASSIUM - SERUM 4.2 mmol/L (3.5-5.1); PROTEIN - SERUM 6.2 g/dL (6.4-8.2)
[2018-04-04 06:45] LABS: LYMPHOCYTES 4 % (15-50); MONOCYTES 8 % (2-11); NEUTROPHILS 85 % (40-80); PLATELET ESTIMATE NORMAL
[2018-04-04 09:49] VITALS: BP 132/62
[2018-04-04 14:56] VITALS: BP 95/64
[2018-04-04 17:32] VITALS: BP 124/66
[2018-04-04 20:00] VITALS: BP 130/79
[2018-04-05 06:05] LABS: BASOPHILS 0.3 % (0-2); EOSINOPHILS 0.2 % (0-7); HEMOGLOBIN 7.7 g/dL (12-16); LYMPHOCYTES 10.4 % (15-50); MCH 30.4 pg (26.0-34.0); MCHC 32.1 g/dL (31.0-37.0); MCV 94.9 fL (80.0-100.0); MEAN PLATELET VOLUME 11.5 fL (7.4-10.4); MONOCYTES 11.3 % (2-11); NEUTROPHILS 72.8 % (40-80); PLATELET COUNT 195 10x3/uL (130-400); RBC 2.53 10x6/uL (4.00-5.40); WBC 17.7 10x3/uL (4.8-10.8)
[2018-04-05 06:44] LABS: ALBUMIN 2.9 g/dL (3.4-5.0); ANION GAP 12.7 mmol/L (8-16); BILIRUBIN - TOTAL 0.4 mg/dL (0.2-1.3); CALCIUM 7.8 mg/dL (8.5-10.1); CARBON DIOXIDE 21.9 mmol/L (21.0-32.0); CREATININE - SERUM 0.9 mg/dL (0.6-1.3); POTASSIUM - SERUM 4.6 mmol/L (3.5-5.1); PROTEIN - SERUM 5.7 g/dL (6.4-8.2)
[2018-04-05 08:51] VITALS: BP 136/62
[2018-04-05 12:01] VITALS: BP 91/37
== END 2018-04-05 14:33 | DRG 177 ==
LOC: D.ER 22:39 → D.EDHOLD 03-31 00:05 → D.MS 03-31 00:05
PROVIDERS: Emergency Medicine; Internal Medicine Pulmonary Disease; Legal Medicine
PROC: 02HV33Z Insertion of Infusion Device into Superior Vena Cava, Percutaneous Approach (ICD-10-PCS; principal; 2018-04-02)
PROC: 0W9B30Z Drainage of Left Pleural Cavity with Drainage Device, Percutaneous Approach (ICD-10-PCS; 2018-04-02)
DX: J69.0 Pneumonitis due to inhalation of food and vomit (principal); J96.21 Acute and chronic respiratory failure with hypoxia; J95.811 Postprocedural pneumothorax; T85.698A Other mechanical complication of other specified internal prosthetic devices, implants and grafts, initial encounter; J44.0 Chronic obstructive pulmonary disease with (acute) lower respiratory infection; J44.1 Chronic obstructive pulmonary disease with (acute) exacerbation; I48.91 Unspecified atrial fibrillation; K21.9 Gastro-esophageal reflux disease without esophagitis; E03.9 Hypothyroidism, unspecified; R13.10 Dysphagia, unspecified; I10 Essential (primary) hypertension; Z99.81 Dependence on supplemental oxygen; G62.9 Polyneuropathy, unspecified; Y83.8 Other surgical procedures as the cause of abnormal reaction of the patient, or of later complication, without mention of misadventure at the time of the procedure; I95.9 Hypotension, unspecified; R00.0 Tachycardia, unspecified

== ENCOUNTER 2018-04-07 21:20 | Inpatient (IN) | payer MEDICARE ==
[~2018-04-07] VITALS: Ht 165.1 cm; Wt 70.3 kg
--- NOTE | ~2018-04-07 | EC ---
PATIENT:CELY ANN DATE OF SERVICE: 04/08/18 SEX: F MEDICAL RECORD: [id number] DATE OF : 55 LOCATION:D.MS [place] AGE OF PATIENT: 62 ADMISSION DATE: 04/08/18 REFERRING PHYSICIAN: INTERPRETING PHYSICIAN: MARITZA NIXON MD ECHOCARDIOGRAM REPORT ECHO CHARGES 4 ECHO COMPLETE Date: 04/08 CLINICAL DIAGNOSIS: ELEVATED BP/HR - CHF ECHOCARDIOGRAPHIC MEASUREMENTS (adult normal given) AC root (d.<3.7cm) 2.6 cm LV Septum d (<1.2 cm> 1.3 cm Valve Excursion 1.5 cm LV Septum (systole) 2.1 cm Left Atria (s.<4.0cm> 2.5 cm LVPW d(<1.2cm) 1.2 cm RV (d.<2.3cm) 1.7 cm LVPW (sytole) 1.5 cm LV diastole(<5.6CM) 2.1 cm MV E-F(>70mm/sec) cm LV systole 1.1 cm LVOT Diameter 1.7 cm MV exc.(>10mm) cm Est.ejection fraction (50-75%) % DOPPLER: LVIT cm/sec A 94.0 cm/sec E 72.0 cm/sec LA cm/sec RVSP mmHg LVOT 200 cm/sec AOP1/2T m/s Asc. Ao 158 cm/sec RVOT 87.0 cm/sec RA cm/sec PA 147 cm/sec AV Gradient Peak 10.0 mmHg AV Mean 4.8 mmHg AV Area 2.9 cm MV Gradient Peak 5.0 mmHg MV Mean 2.0 mmHg MV Area cm COMMENTS: Credit Manager: Daniela LOZANOOE Software Developer Intern: 4 Dr. Nixon TAPE# PACS Pericardial Effusion N DATE OF SERVICE: PROCEDURE: The patient underwent a transthoracic echocardiogram. FINDINGS: 1. The left ventricle is very difficult to visualize. The movement overall appears to be normal in function; however, endocardial structures were very difficult to visualize, but the overall ejection fraction appears to be grossly normal with inflow characteristics consistent with diastolic dysfunction in the face of left ventricular hypertrophy. ECHOCARDIOGRAM REPORT [id number] CELY ANN 2. The left atrium is normal. 3. The aortic valve is normal. 4. The mitral valve is grossly normal, not well visualized. 5. The tricuspid valve is normal, not well visualized. 6. The pericardium is normal as well as the right-sided structures including the right atrium and right ventricle. CONCLUSIONS: The patient has normal LV systolic function. It is very difficult to visualize and evidence of left ventricular hypertrophy and hypertensive heart disease. TRANSINT:[id number] Voice Confirmation ID: [id number] DOCUMENT ID: [id number] MARITZA NIXON MD at 1057 CC: [id number] DICTATION DATE: 04/12/18 0648 PATIENT RELATIONS LIAISON: 04/12/18 1329 DIS IN 04/13/18 [facility] [address] [place] [address]
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
[~2018-04-07 21:20] MED LIST changes: +ASPERCREME 5 OZ5 OZ TOPICAL; +MELATONIN 3 MG1 TAB PO; +MOBIC7.5 MG PO; +MYLANTA / MAALO30 ML PO; +PREDNISONE10 MG PO; +TRAZODONE HCL50 MG PO; +ZANAFLEX4 MG PO; +ZOFRAN4 MG PO
[2018-04-07 22:14] LABS: BASOPHILS 0.3 % (0-2); EOSINOPHILS 1.7 % (0-7); HEMATOCRIT 25.1 % (36.0-48.0); IMMATURE GRANULOCYTES 5.1 % (0-5); LYMPHOCYTES 14.9 % (15-50); MCH 30.4 pg (26.0-34.0); MCHC 31.9 g/dL (31.0-37.0); MCV 95.4 fL (80.0-100.0); MEAN PLATELET VOLUME 11.2 fL (7.4-10.4); MONOCYTES 9.2 % (2-11); NEUTROPHILS 68.8 % (40-80); RBC 2.63 10x6/uL (4.00-5.40); RDW 14.3 % (11.5-14.5); WBC 19.4 10x3/uL (4.8-10.8)
[2018-04-07 22:18] LABS: PLATELET COUNT 267 10x3/uL (130-400)
[2018-04-07 22:26] LABS: ALBUMIN 2.9 g/dL (3.4-5.0); ALKALINE PHOSPHATASE 60 U/L (46-116); ALT (SGPT) 35 U/L (10-68); BILIRUBIN - TOTAL 0.26 mg/dL (0.2-1.3); CALC OSMOLALITY 291 mosm/kg (275-300); CALCIUM 8.6 mg/dL (8.5-10.1); CARBON DIOXIDE 29.8 mmol/L (21.0-32.0); CHLORIDE - SERUM 108 mmol/L (98-107); CREATININE - SERUM 0.6 mg/dL (0.6-1.3); GLUCOSE 112 mg/dL (74-106); MAGNESIUM - SERUM 1.8 mg/dL (1.8-2.4); POTASSIUM - SERUM 3.5 mmol/L (3.5-5.1); PROTEIN - SERUM 5.8 g/dL (6.4-8.2); SODIUM 144 mmol/L (136-145); UREA NITROGEN 24 mg/dL (7-18); eGFR NON AFRICAN AMERICAN > 90 mL/min (90-120)
[2018-04-07 22:44] LABS: APPEARANCE CLEAR (CLEAR); COLOR YELLOW (YELLOW)
[2018-04-07 22:45] LABS: BILIRUBIN NEGATIVE (NEGATIVE); GLUCOSE NEGATIVE (NEGATIVE); KETONE NEGATIVE (NEGATIVE); NITRITE NEGATIVE (NEGATIVE); PROTEIN TRACE mg/dL (NEGATIVE); SPECIFIC GRAVITY 1.015 (1.005-1.020); UROBILINOGEN NORMAL (NORMAL)
[2018-04-08] MEDS ORDERED: PERCOCET 5-3251 TAB PO (02:53)
[2018-04-08 04:15] VITALS: BP 153/74; BMI 25.8
[2018-04-08 04:53] VITALS: BP 153/74
[2018-04-08 08:26] VITALS: BP 189/91
[2018-04-08 10:28] VITALS: BMI 25.7
[2018-04-08 12:01] VITALS: Ht 165.1 cm; Wt 70.3 kg
[2018-04-08 12:47] VITALS: BP 143/71
[2018-04-08 16:17] VITALS: BP 173/70
[2018-04-08 20:00] VITALS: BP 137/88
[2018-04-08 21:52] LABS: HEMATOCRIT 26.6 % (36.0-48.0); HEMOGLOBIN 8.6 g/dL (12-16)
[2018-04-09] VITALS: BP 111/63
[2018-04-09 08:48] LABS: BASOPHILS 0.1 % (0-2); EOSINOPHILS 0 % (0-7); HEMATOCRIT 33.5 % (36.0-48.0); HEMOGLOBIN 10.8 g/dL (12-16); IMMATURE GRANULOCYTES 2.3 % (0-5); LYMPHOCYTES 4.8 % (15-50); MCHC 32.2 g/dL (31.0-37.0); MCV 93.1 fL (80.0-100.0); MEAN PLATELET VOLUME 10.4 fL (7.4-10.4); MONOCYTES 5.9 % (2-11); NEUTROPHILS 86.9 % (40-80); PLATELET COUNT 303 10x3/uL (130-400); RDW 14.4 % (11.5-14.5); WBC 21.7 10x3/uL (4.8-10.8)
[2018-04-09 09:03] LABS: ALKALINE PHOSPHATASE 70 U/L (46-116); ALT (SGPT) 31 U/L (10-68); BILIRUBIN - TOTAL 0.39 mg/dL (0.2-1.3); CALC OSMOLALITY 287 mosm/kg (275-300); CALCIUM 7.6 mg/dL (8.5-10.1); CARBON DIOXIDE 39.1 mmol/L (21.0-32.0); CHLORIDE - SERUM 98 mmol/L (98-107); CREATININE - SERUM 0.8 mg/dL (0.6-1.3); GLUCOSE 157 mg/dL (74-106); POTASSIUM - SERUM 3.4 mmol/L (3.5-5.1); PROTEIN - SERUM 5.8 g/dL (6.4-8.2); SODIUM 143 mmol/L (136-145); UREA NITROGEN 12 mg/dL (7-18); eGFR NON AFRICAN AMERICAN 77 mL/min (90-120)
[2018-04-09 12:05] VITALS: BP 116/65
[2018-04-09 15:15] LABS: HEMATOCRIT 30.6 % (36.0-48.0)
[2018-04-09 15:51] VITALS: BP 80/53
[2018-04-09 19:54] LABS: HEMATOCRIT 26.4 % (36.0-48.0); HEMOGLOBIN 8.5 g/dL (12-16)
[2018-04-09 20:00] VITALS: BP 101/63
[2018-04-10 02:48] LABS: BASOPHILS 0.1 % (0-2); EOSINOPHILS 0 % (0-7); HEMATOCRIT 31.3 % (36.0-48.0); HEMOGLOBIN 9.7 g/dL (12-16); IMMATURE GRANULOCYTES 1.2 % (0-5); LYMPHOCYTES 3.4 % (15-50); MCH 29.5 pg (26.0-34.0); MEAN PLATELET VOLUME 11.3 fL (7.4-10.4); MONOCYTES 2.3 % (2-11); RBC 3.29 10x6/uL (4.00-5.40); RDW 14.6 % (11.5-14.5); WBC 17.5 10x3/uL (4.8-10.8)
[2018-04-10 02:49] LABS: MCV 95.1 fL (80.0-100.0); PLATELET COUNT 166 10x3/uL (130-400)
[2018-04-10 03:05] LABS: ALBUMIN 2.6 g/dL (3.4-5.0); ALKALINE PHOSPHATASE 62 U/L (46-116); ALT (SGPT) 23 U/L (10-68); BILIRUBIN - TOTAL 0.37 mg/dL (0.2-1.3); CALC OSMOLALITY 289 mosm/kg (275-300); CALCIUM 7.2 mg/dL (8.5-10.1); CARBON DIOXIDE 36.7 mmol/L (21.0-32.0); CHLORIDE - SERUM 99 mmol/L (98-107); CREATININE - SERUM 0.8 mg/dL (0.6-1.3); GLUCOSE 152 mg/dL (74-106); POTASSIUM - SERUM 3.8 mmol/L (3.5-5.1); PROTEIN - SERUM 5.1 g/dL (6.4-8.2); SODIUM 143 mmol/L (136-145); UREA NITROGEN 17 mg/dL (7-18); VANCOMYCIN - TROUGH 8.6 ug/mL (10.0-20.0); eGFR NON AFRICAN AMERICAN 77 mL/min (90-120)
[2018-04-10 04:00] VITALS: BP 134/62
[2018-04-10 08:21] VITALS: BP 129/61
[2018-04-10 12:29] VITALS: BP 129/59
[2018-04-10 14:54] LABS: HEMATOCRIT 27.9 % (36.0-48.0); HEMOGLOBIN 8.9 g/dL (12-16)
[2018-04-10 16:35] VITALS: BP 147/61
[2018-04-10 20:00] VITALS: BP 116/58
[2018-04-10 20:22] LABS: HEMATOCRIT 28.4 % (36.0-48.0); HEMOGLOBIN 9.2 g/dL (12-16)
[2018-04-11 04:20] VITALS: BP 148/77
[2018-04-11 06:41] LABS: BASOPHILS 0.1 % (0-2); EOSINOPHILS 0 % (0-7); HEMATOCRIT 32.6 % (36.0-48.0); HEMOGLOBIN 10.4 g/dL (12-16); IMMATURE GRANULOCYTES 1.2 % (0-5); MCH 30.1 pg (26.0-34.0); MCHC 31.9 g/dL (31.0-37.0); MCV 94.2 fL (80.0-100.0); MEAN PLATELET VOLUME 10.5 fL (7.4-10.4); MONOCYTES 3.3 % (2-11); NEUTROPHILS 92.4 % (40-80); RBC 3.46 10x6/uL (4.00-5.40); RDW 14.7 % (11.5-14.5); WBC 18.2 10x3/uL (4.8-10.8)
[2018-04-11 06:43] LABS: PLATELET COUNT 365 10x3/uL (130-400)
[2018-04-11 06:50] LABS: ALBUMIN 3.1 g/dL (3.4-5.0); ALKALINE PHOSPHATASE 61 U/L (46-116); BILIRUBIN - TOTAL 0.43 mg/dL (0.2-1.3); CALC OSMOLALITY 287 mosm/kg (275-300); CARBON DIOXIDE 37.2 mmol/L (21.0-32.0); CHLORIDE - SERUM 98 mmol/L (98-107); CREATININE - SERUM 0.6 mg/dL (0.6-1.3); GLUCOSE 123 mg/dL (74-106); POTASSIUM - SERUM 3.2 mmol/L (3.5-5.1); PROTEIN - SERUM 6.3 g/dL (6.4-8.2); SODIUM 144 mmol/L (136-145); UREA NITROGEN 13 mg/dL (7-18); eGFR NON AFRICAN AMERICAN > 90 mL/min (90-120)
[2018-04-11 06:51] LABS: ALT (SGPT) 33 U/L (10-68)
[2018-04-11 07:42] VITALS: BP 150/69
[2018-04-11 12:24] VITALS: BP 124/55
[2018-04-11 15:59] LABS: HEMATOCRIT 27.9 % (36.0-48.0)
[2018-04-11 16:42] VITALS: BP 135/61
[2018-04-11 20:00] VITALS: BP 116/53
[2018-04-11 21:30] LABS: HEMATOCRIT 30.7 % (36.0-48.0); HEMOGLOBIN 9.6 g/dL (12-16)
[2018-04-12 04:00] VITALS: BP 132/64
[2018-04-12 06:04] LABS: BASOPHILS 0.1 % (0-2); HEMATOCRIT 29.4 % (36.0-48.0); HEMOGLOBIN 9.2 g/dL (12-16); IMMATURE GRANULOCYTES 1.1 % (0-5); LYMPHOCYTES 13.6 % (15-50); MCH 29.8 pg (26.0-34.0); MCHC 31.3 g/dL (31.0-37.0); MCV 95.1 fL (80.0-100.0); MEAN PLATELET VOLUME 10.4 fL (7.4-10.4); MONOCYTES 7.3 % (2-11); NEUTROPHILS 76.9 % (40-80); RBC 3.09 10x6/uL (4.00-5.40); RDW 14.7 % (11.5-14.5)
[2018-04-12 06:07] LABS: PLATELET COUNT 268 10x3/uL (130-400); WBC 9.9 10x3/uL (4.8-10.8)
[2018-04-12 06:28] LABS: ALKALINE PHOSPHATASE 52 U/L (46-116); ALT (SGPT) 28 U/L (10-68); BILIRUBIN - TOTAL 0.38 mg/dL (0.2-1.3); CALC OSMOLALITY 285 mosm/kg (275-300); CARBON DIOXIDE 37.6 mmol/L (21.0-32.0); CHLORIDE - SERUM 101 mmol/L (98-107); CREATININE - SERUM 0.5 mg/dL (0.6-1.3); GLUCOSE 88 mg/dL (74-106); PROTEIN - SERUM 4.9 g/dL (6.4-8.2); SODIUM 144 mmol/L (136-145); UREA NITROGEN 13 mg/dL (7-18); eGFR NON AFRICAN AMERICAN > 90 mL/min (90-120)
[2018-04-12 06:30] LABS: ALBUMIN 2.3 g/dL (3.4-5.0)
[2018-04-12 06:35] LABS: CALCIUM 6.3 mg/dL (8.5-10.1); POTASSIUM - SERUM 2.5 mmol/L (3.5-5.1)
[2018-04-12 08:29] VITALS: BP 135/73
[2018-04-12 12:48] VITALS: BP 87/53
[2018-04-12 15:15] VITALS: BP 116/58
[2018-04-12 20:00] VITALS: BP 121/58
[2018-04-12 23:38] VITALS: BP 111/64
[2018-04-13 04:00] VITALS: BP 120/55
[2018-04-13 06:18] LABS: BASOPHILS 0.1 % (0-2); EOSINOPHILS 3.3 % (0-7); HEMATOCRIT 30.6 % (36.0-48.0); HEMOGLOBIN 9.5 g/dL (12-16); IMMATURE GRANULOCYTES 1.3 % (0-5); LYMPHOCYTES 13.1 % (15-50); MCH 30.1 pg (26.0-34.0); MCV 96.8 fL (80.0-100.0); MEAN PLATELET VOLUME 10.6 fL (7.4-10.4); MONOCYTES 5.4 % (2-11); NEUTROPHILS 76.8 % (40-80); PLATELET COUNT 276 10x3/uL (130-400); RBC 3.16 10x6/uL (4.00-5.40); RDW 14.9 % (11.5-14.5); WBC 9.3 10x3/uL (4.8-10.8)
[2018-04-13 06:31] LABS: ALBUMIN 2.2 g/dL (3.4-5.0); ALKALINE PHOSPHATASE 54 U/L (46-116); ALT (SGPT) 26 U/L (10-68); BILIRUBIN - TOTAL 0.43 mg/dL (0.2-1.3); CALC OSMOLALITY 286 mosm/kg (275-300); CARBON DIOXIDE 37.6 mmol/L (21.0-32.0); CHLORIDE - SERUM 105 mmol/L (98-107); CREATININE - SERUM 0.5 mg/dL (0.6-1.3); GLUCOSE 91 mg/dL (74-106); PROTEIN - SERUM 4.8 g/dL (6.4-8.2); SODIUM 144 mmol/L (136-145); UREA NITROGEN 12 mg/dL (7-18); eGFR NON AFRICAN AMERICAN > 90 mL/min (90-120)
[2018-04-13 06:44] LABS: POTASSIUM - SERUM 3.3 mmol/L (3.5-5.1)
[2018-04-13 06:45] LABS: CALCIUM 6.1 mg/dL (8.5-10.1)
[2018-04-13 09:09] VITALS: BP 128/71
[2018-04-13] MEDS ORDERED: FUROSEMIDE10 MG/M1 PO (12:28)
[2018-04-13] MEDS ORDERED: K-DUR20 MEQ PO (12:29)
[2018-04-13 12:38] VITALS: BP 109/57
== END 2018-04-13 16:01 | disposition home or self-care (01) | DRG 199 ==
LOC: D.ER 21:20 → D.MS 04-08 01:19 → D.EDHOLD 04-08 01:19 → D.MS 04-08 01:24
PROVIDERS: Family Medicine; Internal Medicine Gastroenterology; Legal Medicine; Physician Assistant Medical
PROC: 05HB33Z Insertion of Infusion Device into Right Basilic Vein, Percutaneous Approach (ICD-10-PCS; principal; 2018-04-08)
PROC: B54MZZA Ultrasonography of Right Upper Extremity Veins, Guidance (ICD-10-PCS; 2018-04-08)
PROC: 0W9B30Z Drainage of Left Pleural Cavity with Drainage Device, Percutaneous Approach (ICD-10-PCS; 2018-04-09)
DX: J93.9 Pneumothorax, unspecified (principal); J15.9 Unspecified bacterial pneumonia; J96.00 Acute respiratory failure, unspecified whether with hypoxia or hypercapnia; J69.0 Pneumonitis due to inhalation of food and vomit; K92.1 Melena; J44.0 Chronic obstructive pulmonary disease with (acute) lower respiratory infection; J44.1 Chronic obstructive pulmonary disease with (acute) exacerbation; I50.22 Chronic systolic (congestive) heart failure; D64.9 Anemia, unspecified; J98.2 Interstitial emphysema; I16.0 Hypertensive urgency; Z91.19 Patient's noncompliance with other medical treatment and regimen; F41.8 Other specified anxiety disorders; I48.91 Unspecified atrial fibrillation

== ENCOUNTER 2018-04-19 14:56 | Emergency (ER) | payer MEDICARE ==
[2018-04-08 12:01] VITALS: BMI 25.7
[~2018-04-19 14:56] MED LIST changes: +FUROSEMIDE10 MG/M1 PO; +K-DUR20 MEQ PO; +PERCOCET 5-3251 TAB PO
[2018-04-19 15:54] LABS: BASOPHILS 0.3 % (0-2); EOSINOPHILS 0.1 % (0-7); HEMOGLOBIN 8.5 g/dL (12-16); IMMATURE GRANULOCYTES 0.6 % (0-5); LYMPHOCYTES 6.2 % (15-50); MCHC 30.4 g/dL (31.0-37.0); MCV 98.9 fL (80.0-100.0); MEAN PLATELET VOLUME 10.4 fL (7.4-10.4); MONOCYTES 5.1 % (2-11); NEUTROPHILS 87.7 % (40-80); PLATELET COUNT 273 10x3/uL (130-400); RBC 2.83 10x6/uL (4.00-5.40); RDW 15.1 % (11.5-14.5); WBC 10.4 10x3/uL (4.8-10.8)
[2018-04-19 16:03] LABS: APTT 20.9 SECONDS (22.8-39.4)
[2018-04-19 16:04] LABS: INR 0.95 (0.85-1.17); PROTIME 12.3 SECONDS (11.6-15.0)
[2018-04-19 16:05] LABS: D-DIMER-QUANTITATIVE 2.75 ug/mLFEU (0.20-0.54)
[2018-04-19 16:24] LABS: ALBUMIN 2.6 g/dL (3.4-5.0); ALKALINE PHOSPHATASE 89 U/L (46-116); ALT (SGPT) 16 U/L (10-68); CALCIUM 8.9 mg/dL (8.5-10.1); CARBON DIOXIDE 38.2 mmol/L (21.0-32.0); CHLORIDE - SERUM 101 mmol/L (98-107); CKMB 0.4 U/L (0.0-3.6); CREATINE KINASE 17 UL (21-215); GLUCOSE 122 mg/dL (74-106); POTASSIUM - SERUM 5.6 mmol/L (3.5-5.1); PRO BNP 253 pg/mL (0-125); PROTEIN - SERUM 5.1 g/dL (6.4-8.2); SODIUM 140 mmol/L (136-145); eGFR NON AFRICAN AMERICAN 59 mL/min (90-120)
[2018-04-19 16:25] LABS: CALC OSMOLALITY 284 mosm/kg (275-300); TROPONIN-I < 0.017 ng/mL (0.000-0.060); UREA NITROGEN 27 mg/dL (7-18)
[2018-04-19 17:47] LABS: APPEARANCE CLEAR (CLEAR); BILIRUBIN NEGATIVE (NEGATIVE); COLOR YELLOW (YELLOW); GLUCOSE NEGATIVE (NEGATIVE); KETONE NEGATIVE (NEGATIVE); NITRITE NEGATIVE (NEGATIVE); PROTEIN NEGATIVE (NEGATIVE); UROBILINOGEN NORMAL (NORMAL)
== END 2018-04-19 19:32 | disposition home or self-care (01) ==
LOC: D.ER 14:56
PROVIDERS: Family Medicine
DX: I95.9 Hypotension, unspecified (principal); J20.9 Acute bronchitis, unspecified; J44.9 Chronic obstructive pulmonary disease, unspecified; Z99.81 Dependence on supplemental oxygen

== ENCOUNTER 2018-04-30 15:55 | Emergency (ER) | payer MEDICARE ==
[~2018-04-30] VITALS: Ht 165.1 cm; Wt 56.4 kg
[2018-04-30 16:00] VITALS: Ht 165.1 cm; Wt 56.4 kg
[2018-04-30 16:43] LABS: BASOPHILS 0.2 % (0-2); EOSINOPHILS 0.3 % (0-7); HEMATOCRIT 31.8 % (36.0-48.0); HEMOGLOBIN 9.5 g/dL (12-16); IMMATURE GRANULOCYTES 1.5 % (0-5); LYMPHOCYTES 9.4 % (15-50); MCH 29.5 pg (26.0-34.0); MCHC 29.9 g/dL (31.0-37.0); MCV 98.8 fL (80.0-100.0); MEAN PLATELET VOLUME 10.6 fL (7.4-10.4); MONOCYTES 4.6 % (2-11); PLATELET COUNT 272 10x3/uL (130-400); RBC 3.22 10x6/uL (4.00-5.40); WBC 9.5 10x3/uL (4.8-10.8)
[2018-04-30 18:07] LABS: APTT 21.3 SECONDS (22.8-39.4); INR 0.91 (0.85-1.17); PROTIME 11.9 SECONDS (11.6-15.0)
[2018-04-30 18:08] LABS: D-DIMER-QUANTITATIVE 1.78 ug/mLFEU (0.20-0.54)
[2018-04-30 19:17] LABS: ANION GAP 9.6 mmol/L (8-16); BILIRUBIN - TOTAL 0.12 mg/dL (0.2-1.3); CALCIUM 8.6 mg/dL (8.5-10.1); CARBON DIOXIDE 32.9 mmol/L (21.0-32.0); CREATININE - SERUM 0.9 mg/dL (0.6-1.3); POTASSIUM - SERUM 5.5 mmol/L (3.5-5.1); PROTEIN - SERUM 5.9 g/dL (6.4-8.2)
[2018-04-30 22:00] VITALS: BP 129/84
== END 2018-04-30 22:10 | disposition home or self-care (01) ==
LOC: D.ER 15:55
PROVIDERS: Family Medicine
DX: J44.9 Chronic obstructive pulmonary disease, unspecified (principal); J96.10 Chronic respiratory failure, unspecified whether with hypoxia or hypercapnia; Z93.0 Tracheostomy status; E07.9 Disorder of thyroid, unspecified; K21.9 Gastro-esophageal reflux disease without esophagitis

== ENCOUNTER 2018-05-29 10:10 | Emergency (ER) | payer MEDICARE ==
[~2018-05-29] VITALS: Ht 165.1 cm; Wt 56.8 kg
[2018-05-29 10:15] VITALS: Ht 165.1 cm; Wt 56.8 kg
[2018-05-29 11:43] LABS: BASOPHILS 0.6 % (0-2); EOSINOPHILS 2.3 % (0-7); HEMATOCRIT 37.9 % (36.0-48.0); HEMOGLOBIN 11.2 g/dL (12-16); IMMATURE GRANULOCYTES 0.3 % (0-5); LYMPHOCYTES 21.1 % (15-50); MCH 28.6 pg (26.0-34.0); MCHC 29.6 g/dL (31.0-37.0); MCV 96.7 fL (80.0-100.0); MEAN PLATELET VOLUME 11.8 fL (7.4-10.4); MONOCYTES 6.9 % (2-11); NEUTROPHILS 68.8 % (40-80); PLATELET COUNT 229 10x3/uL (130-400); RBC 3.92 10x6/uL (4.00-5.40); RDW 14.3 % (11.5-14.5); WBC 9.9 10x3/uL (4.8-10.8)
[2018-05-29 12:24] LABS: INR 0.97 (0.85-1.17); PROTIME 12.5 SECONDS (11.6-15.0)
[2018-05-29 12:26] LABS: D-DIMER-QUANTITATIVE 1.63 ug/mLFEU (0.20-0.54)
[2018-05-29 12:41] LABS: ALBUMIN 3.3 g/dL (3.4-5.0); ALKALINE PHOSPHATASE 89 U/L (46-116); ALT (SGPT) 18 U/L (10-68); BILIRUBIN - TOTAL 0.14 mg/dL (0.2-1.3); CALC OSMOLALITY 281 mosm/kg (275-300); CALCIUM 8.6 mg/dL (8.5-10.1); CARBON DIOXIDE 33.5 mmol/L (21.0-32.0); CHLORIDE - SERUM 104 mmol/L (98-107); CREATININE - SERUM 0.8 mg/dL (0.6-1.3); GLUCOSE 123 mg/dL (74-106); PROTEIN - SERUM 6.2 g/dL (6.4-8.2); SODIUM 139 mmol/L (136-145); UREA NITROGEN 22 mg/dL (7-18); eGFR NON AFRICAN AMERICAN 77 mL/min (90-120)
[2018-05-29 12:48] LABS: CKMB 0.5 U/L (0.0-3.6); CREATINE KINASE 31 UL (21-215); PRO BNP 120 pg/mL (0-125); TROPONIN-I < 0.017 ng/mL (0.000-0.060)
[2018-05-29 18:00] VITALS: BP 134/71
== END 2018-05-30 07:17 | disposition home or self-care (01) ==
LOC: D.ER 10:10
PROVIDERS: Family Medicine
DX: R07.81 Pleurodynia (principal); J44.9 Chronic obstructive pulmonary disease, unspecified; R06.02 Shortness of breath; Z99.81 Dependence on supplemental oxygen; E03.9 Hypothyroidism, unspecified; R41.841 Cognitive communication deficit; I50.9 Heart failure, unspecified

== ENCOUNTER → 2018-06-15 07:56 | Outpatient (CLI) | payer MEDICARE ==
[2018-05-29 10:15] VITALS: BMI 20.8
[~2018-06-15 07:56] MED LIST changes: +ANBESOL9 GM TOPICAL; +NEXIUM20 MG PO
[2018-06-15 09:03] LABS: BASOPHILS 0.7 % (0-2); EOSINOPHILS 2.6 % (0-7); HEMATOCRIT 34.9 % (36.0-48.0); HEMOGLOBIN 10.2 g/dL (12-16); IMMATURE GRANULOCYTES 0.5 % (0-5); LYMPHOCYTES 37.5 % (15-50); MCH 26.4 pg (26.0-34.0); MCHC 29.2 g/dL (31.0-37.0); MCV 90.4 fL (80.0-100.0); MEAN PLATELET VOLUME 11.9 fL (7.4-10.4); MONOCYTES 6.4 % (2-11); NEUTROPHILS 52.3 % (40-80); PLATELET COUNT 208 10x3/uL (130-400); RBC 3.86 10x6/uL (4.00-5.40); RDW 13.8 % (11.5-14.5); WBC 6.1 10x3/uL (4.8-10.8)
[2018-06-15 09:10] LABS: ALBUMIN 2.9 g/dL (3.4-5.0); ALKALINE PHOSPHATASE 85 U/L (46-116); ALT (SGPT) 16 U/L (10-68); BILIRUBIN - TOTAL 0.12 mg/dL (0.2-1.3); CALC OSMOLALITY 287 mosm/kg (275-300); CALCIUM 8.6 mg/dL (8.5-10.1); CARBON DIOXIDE 35.3 mmol/L (21.0-32.0); CHLORIDE - SERUM 104 mmol/L (98-107); CREATININE - SERUM 0.5 mg/dL (0.6-1.3); GLUCOSE 97 mg/dL (74-106); POTASSIUM - SERUM 3.8 mmol/L (3.5-5.1); PROTEIN - SERUM 5.9 g/dL (6.4-8.2); SODIUM 143 mmol/L (136-145); UREA NITROGEN 20 mg/dL (7-18); eGFR NON AFRICAN AMERICAN > 90 mL/min (90-120)
== END | disposition home or self-care (01) ==
LOC: D.LAB 05-16 11:00 → D.CT 05-16 11:00 → D.LAB 05-16 11:30 → D.CT 07:56
PROVIDERS: Internal Medicine Gastroenterology
DX: R10.9 Unspecified abdominal pain (principal); K59.00 Constipation, unspecified

== ENCOUNTER → 2018-06-21 08:33 | Outpatient (CLI) | payer MEDICARE ==
[2018-05-29 10:15] VITALS: BMI 20.8
== END | disposition home or self-care (01) ==
LOC: D.LAB 05-16 11:30 → D.RAD 05-23 08:30
DX: R13.10 Dysphagia, unspecified (principal)

== ENCOUNTER 2018-07-20 13:05 | Emergency (ER) | payer MEDICARE ==
[~2018-07-20] VITALS: Ht 165.1 cm; Wt 59.1 kg
[~2018-07-20 13:05] MED LIST changes: -ANBESOL9 GM TOPICAL; -NEXIUM20 MG PO
[2018-07-20 13:09] VITALS: Ht 165.1 cm; Wt 59.1 kg
[2018-07-20] MEDS ORDERED: ANBESOL9 GM TOPICAL (13:12)
[2018-07-20] MEDS ORDERED: CARAFATE1 G PO (13:14)
[2018-07-20] MEDS ORDERED: NEXIUM20 MG PO (13:15)
[2018-07-20 14:33] LABS: BASOPHILS 0.4 % (0-2); HEMATOCRIT 36.2 % (36.0-48.0); HEMOGLOBIN 10.6 g/dL (12-16); IMMATURE GRANULOCYTES 0.3 % (0-5); LYMPHOCYTES 17.8 % (15-50); MCHC 29.3 g/dL (31.0-37.0); MCV 88.7 fL (80.0-100.0); MEAN PLATELET VOLUME 11.2 fL (7.4-10.4); MONOCYTES 10.1 % (2-11); NEUTROPHILS 69.4 % (40-80); PLATELET COUNT 188 10x3/uL (130-400); RBC 4.08 10x6/uL (4.00-5.40); RDW 14.2 % (11.5-14.5); WBC 7.6 10x3/uL (4.8-10.8)
[2018-07-20 15:05] LABS: APTT 22.5 SECONDS (22.8-39.4); INR 0.95 (0.85-1.17); PROTIME 12.3 SECONDS (11.6-15.0)
[2018-07-20 15:31] LABS: ALBUMIN 3.3 g/dL (3.4-5.0); ALKALINE PHOSPHATASE 106 U/L (46-116); ALT (SGPT) 30 U/L (10-68); BILIRUBIN - TOTAL 0.13 mg/dL (0.2-1.3); CALC OSMOLALITY 286 mosm/kg (275-300); CALCIUM 8.4 mg/dL (8.5-10.1); CARBON DIOXIDE 34.6 mmol/L (21.0-32.0); CHLORIDE - SERUM 103 mmol/L (98-107); CREATININE - SERUM 0.9 mg/dL (0.6-1.3); GLUCOSE 94 mg/dL (74-106); PROTEIN - SERUM 5.9 g/dL (6.4-8.2); SODIUM 140 mmol/L (136-145); UREA NITROGEN 35 mg/dL (7-18); eGFR NON AFRICAN AMERICAN 67 mL/min (90-120)
[2018-07-20 15:41] LABS: CKMB 7.7 U/L (0.0-3.6); CREATINE KINASE 248 UL (21-215); TROPONIN-I < 0.017 ng/mL (0.000-0.060)
[2018-07-20 18:18] VITALS: BP 129/71
== END 2018-07-20 18:24 ==
LOC: D.ER 13:05
PROVIDERS: Family Medicine
DX: R07.89 Other chest pain (principal); E07.9 Disorder of thyroid, unspecified; I50.9 Heart failure, unspecified; J44.9 Chronic obstructive pulmonary disease, unspecified; K21.9 Gastro-esophageal reflux disease without esophagitis

== ENCOUNTER 2018-09-04 15:00 | Emergency (ER) | payer MEDICARE ==
[~2018-09-04] VITALS: Ht 165.1 cm; Wt 57.7 kg
[~2018-09-04 15:00] MED LIST changes: +ANBESOL9 GM TOPICAL; +NEXIUM20 MG PO
[2018-09-04 15:01] VITALS: Ht 165.1 cm; Wt 57.7 kg
[2018-09-04 16:36] LABS: BASOPHILS 0.1 % (0-2); EOSINOPHILS 0.3 % (0-7); HEMATOCRIT 36.2 % (36.0-48.0); HEMOGLOBIN 10.8 g/dL (12-16); IMMATURE GRANULOCYTES 0.4 % (0-5); LYMPHOCYTES 7.9 % (15-50); MCH 26.5 pg (26.0-34.0); MCHC 29.8 g/dL (31.0-37.0); MCV 88.7 fL (80.0-100.0); MEAN PLATELET VOLUME 11.7 fL (7.4-10.4); NEUTROPHILS 87.3 % (40-80); RBC 4.08 10x6/uL (4.00-5.40); RDW 16.6 % (11.5-14.5); WBC 7.9 10x3/uL (4.8-10.8)
[2018-09-04 16:45] LABS: PLATELET COUNT 169 10x3/uL (130-400)
[2018-09-04 17:06] LABS: ALBUMIN 3.5 g/dL (3.4-5.0); ALKALINE PHOSPHATASE 66 U/L (46-116); ALT (SGPT) 23 U/L (10-68); BILIRUBIN - TOTAL 0.29 mg/dL (0.2-1.3); CALC OSMOLALITY 283 mosm/kg (275-300); CARBON DIOXIDE 31.6 mmol/L (21.0-32.0); CHLORIDE - SERUM 103 mmol/L (98-107); CREATININE - SERUM 0.8 mg/dL (0.6-1.3); GLUCOSE 105 mg/dL (74-106); LIPASE 80 U/L (73-393); POTASSIUM - SERUM 4.8 mmol/L (3.5-5.1); PROTEIN - SERUM 6.6 g/dL (6.4-8.2); SODIUM 142 mmol/L (136-145); UREA NITROGEN 15 mg/dL (7-18); eGFR NON AFRICAN AMERICAN 77 mL/min (90-120)
[2018-09-04 18:34] VITALS: BP 134/82
== END 2018-09-04 18:36 | disposition home or self-care (01) ==
LOC: D.ER 15:00
PROVIDERS: Emergency Medicine
DX: Z93.0 Tracheostomy status (principal); J44.9 Chronic obstructive pulmonary disease, unspecified; Z87.09 Personal history of other diseases of the respiratory system; I50.9 Heart failure, unspecified; R41.841 Cognitive communication deficit

== ENCOUNTER 2018-09-27 11:24 | Day surgery (SDC) | payer MEDICARE ==
[~2018-09-27] VITALS: Ht 162.6 cm; Wt 59.1 kg
--- NOTE | ~2018-09-27 | OP ---
PATIENT NAME: CELY ANN MEDICAL RECORD: [id number] :55 LOCATION:D.OPS ADMISSION DATE: SURGEON: BRENDON GOODRICH MD DATE OF OPERATION: 09/27/2018 PREOPERATIVE DIAGNOSES: 1. Dysphagia. 2. History of tracheoesophageal fistula. 2. History of laryngectomy. POSTOPERATIVE DIAGNOSES: 1. Dysphagia. 2. History of tracheoesophageal fistula. 2. History of laryngectomy. 4. Stricturing of the anastomosis between the pharynx and what appears to be jejunum. PROCEDURES: 1. Esophagogastroduodenoscopy with antral biopsies. 2. Balloon dilation of the pharyngeal anastomosis to 46-Argentine through the catheter balloon. SURGEON: Brendon Goodrich MD NUTRITION PARTNER: None. BLOOD LOSS: Minimal. ANESTHESIA: IV sedation. COMPLICATIONS: None. The risks, possible complications, and alternatives to the procedure were explained to the patient. She elects to proceed. The discussion specifically included, but was not limited to bleeding, requiring emergency reoperation; infection; intestinal injury. The patient's anatomy is complex. I was unable to intubate the trachea. I was able to advance the endoscope through the pharyngeal anastomosis. This appeared to be an anastomosis between the hypopharynx and a portion of small bowel. Then, there was another anastomosis between small bowel and mid esophagus. At the secondary anastomosis, there was no stricturing. The pylorus was widely patent and it was so large that I wonder whether the patient has undergone a pyloromyotomy or a pyloroplasty in the past. The duodenum is in such a configuration that I wonder if it has not been kocherized in the past as well. ENDOSCOPIC COURSE: The patient was conveyed to the endoscopy suite electively on 09/27/2018. IV sedation was induced by the anesthesia staff. It was necessary to have the anesthesia staff present during the procedure due to the possible need for airway suctioning as well as airway manipulation, which was necessary during the procedure. The patient was conveyed to the endoscopy suite electively on 09/27/2018. IV OPERATIVE REPORT [id number] CELY ANN sedation was induced by the anesthesia staff. A bite block was inserted. A gastroscope was inserted into the mouth. It was advanced easily into the hypopharynx. I was barely able to get the gastroscope through the pharyngeal anastomosis. I advanced it down the esophagus into the stomach and into the duodenum. Upon withdrawal, retroflexed and angulus views were obtained. Antral biopsies were obtained. The endoscope was then withdrawn into the cardia of the stomach. I advanced it through the catheter balloon. I then sequentially dilated the entire length of the esophagus as well as the anastomosis to 40-Argentine. I removed the balloon dilator. I readvanced the endoscope. The dilation of the pharyngeal anastomosis was suboptimal. For this reason, I advanced, through the catheter, balloon again. It was inflated to 46-Argentine at the anastomosis between the pharynx and the small bowel. The balloon was then removed as well as the gastroscope. I readvanced the gastroscope. There had been no evidence of false passage or perforation. The endoscope was then withdrawn under direct vision. The patient was then conveyed to the postanesthesia care unit, where she was in stable condition. My plan is to see her on a p.r.n. basis. I will see her in the office to review the results of the test for H. pylori. It is very likely that the patient will require additional dilation procedure sometime in the future. Dr. Salguero will be continuing to follow her up for her large bowel surveillance needs. TRANSINT:[id number] Voice Confirmation ID: [id number] DOCUMENT ID: [id number] BRENDON GOODRICH MD at 1603 CC: BOLIVAR SALGUERO MD and FRANCHESCA ROSENTHAL [id number] DICTATION DATE: 09/28/18 1037 NET APPLICATIONS DEVELOPER: 09/28/18 1202 [facility] 09/27/18 [id number] [place] [address]
[2018-09-27 12:00] LABS: BASOPHILS 0.3 % (0-2); EOSINOPHILS 1.3 % (0-7); HEMATOCRIT 39.1 % (36.0-48.0); HEMOGLOBIN 11.6 g/dL (12-16); IMMATURE GRANULOCYTES 0.5 % (0-5); LYMPHOCYTES 9.9 % (15-50); MCH 27.3 pg (26.0-34.0); MCHC 29.7 g/dL (31.0-37.0); MEAN PLATELET VOLUME 10.9 fL (7.4-10.4); MONOCYTES 4.4 % (2-11); NEUTROPHILS 83.6 % (40-80); RBC 4.25 10x6/uL (4.00-5.40); RDW 16.2 % (11.5-14.5); WBC 9.5 10x3/uL (4.8-10.8)
[2018-09-27 12:02] LABS: PLATELET COUNT 228 10x3/uL (130-400)
[2018-09-27 12:15] LABS: CALC OSMOLALITY 283 mosm/kg (275-300); CALCIUM 9.2 mg/dL (8.5-10.1); CARBON DIOXIDE 34.8 mmol/L (21.0-32.0); CHLORIDE - SERUM 101 mmol/L (98-107); CREATININE - SERUM 0.7 mg/dL (0.6-1.3); GLUCOSE 121 mg/dL (74-106); POTASSIUM - SERUM 4.5 mmol/L (3.5-5.1); SODIUM 141 mmol/L (136-145); UREA NITROGEN 17 mg/dL (7-18); eGFR NON AFRICAN AMERICAN 90 mL/min (90-120)
[2018-09-27 14:05] VITALS: BP 147/87; Ht 162.6 cm; Wt 59.1 kg
== END 2018-09-27 14:10 | disposition home or self-care (01) ==
LOC: D.OPS 11:24
PROVIDERS: Anesthesiology
DX: K22.2 Esophageal obstruction (principal); K29.50 Unspecified chronic gastritis without bleeding; Z01.812 Encounter for preprocedural laboratory examination; Z90.02 Acquired absence of larynx

== ENCOUNTER 2018-10-08 09:43 | Emergency (ER) | payer MEDICARE ==
[~2018-10-08] VITALS: Ht 162.6 cm; Wt 60.5 kg
[2018-10-08 09:52] VITALS: BP 170/71; Ht 162.6 cm; Wt 60.5 kg
== END 2018-10-08 11:39 ==
LOC: D.ER 09:43
DX: J95.09 Other tracheostomy complication (principal)

== ENCOUNTER 2018-12-09 10:16 | Inpatient (IN) | payer MEDICARE ==
[~2018-12-09] VITALS: Ht 162.6 cm; Wt 59.0 kg
[2018-12-09 11:08] LABS: BASOPHILS 0.4 % (0-2); EOSINOPHILS 0.5 % (0-7); HEMOGLOBIN 10.4 g/dL (12-16); IMMATURE GRANULOCYTES 0.4 % (0-5); LYMPHOCYTES 5.6 % (15-50); MCH 26.9 pg (26.0-34.0); MCHC 29.7 g/dL (31.0-37.0); MCV 90.7 fL (80.0-100.0); MEAN PLATELET VOLUME 11.8 fL (7.4-10.4); MONOCYTES 6.9 % (2-11); NEUTROPHILS 86.2 % (40-80); PLATELET COUNT 216 10x3/uL (130-400); RBC 3.86 10x6/uL (4.00-5.40); WBC 13.5 10x3/uL (4.8-10.8)
[2018-12-09 11:11] VITALS: BP 96/53
[2018-12-09 11:12] LABS: ALBUMIN 2.9 g/dL (3.4-5.0); ALKALINE PHOSPHATASE 69 U/L (46-116); ALT (SGPT) 13 U/L (10-68); BILIRUBIN - TOTAL 0.36 mg/dL (0.2-1.3); CALC OSMOLALITY 281 mosm/kg (275-300); CALCIUM 8.7 mg/dL (8.5-10.1); CARBON DIOXIDE 31.2 mmol/L (21.0-32.0); CHLORIDE - SERUM 103 mmol/L (98-107); CREATININE - SERUM 0.7 mg/dL (0.6-1.3); GLUCOSE 123 mg/dL (74-106); POTASSIUM - SERUM 4.3 mmol/L (3.5-5.1); PROTEIN - SERUM 6.2 g/dL (6.4-8.2); SODIUM 140 mmol/L (136-145); UREA NITROGEN 17 mg/dL (7-18); eGFR NON AFRICAN AMERICAN 90 mL/min (90-120)
--- NOTE | 2018-12-09 11:18 | NUR ---
PT SLEEPING , SETTING UP IN BED, AROUSED EASILY, NO COMPLAINTS VOICED.
--- NOTE | 2018-12-09 12:56 | NUR ---
ZOSYN INFUSION COMPLETE AT THIS TIME.
--- NOTE | 2018-12-09 13:20 | MORECARE ---
CASE MANAGEMENT DISCHARGE SUMMARY PATIENT: CELY ANN UNIT: [id number] ADM DATE: 12/09/18 AGE: 63 : 55 SEX: F ROOM/BED: D.E07 AUTHOR: CATE AGUILA PHYSICIAN: REFERRING PHYSICIAN: JUAN PABLO MONTANO MD DATE OF SERVICE: 12/09/18 Discharge Plan Patient Name: CELY ANN Facility: [facility]:[place] : 1955 Planned Disposition: [facility]cf Facility Anticipated Discharge Date: 12/12/18 Discharge Date: Expected LOS: 3 Initial Reviewer: [email or web address] Initial Review Date: 12/09/2018 Generated: 12/09/18 2:20 pm DCP- Discharge Planning Updated by [email or web address]: Irene Zhang on 12/09/18 12:[address] Patient Name: CELY ANN Admission Status: ER Accout number: [id number] Admission Date: 12-09-2018 : 1955 Admission Diagnosis: Attending: JUAN PABLO MONTANO Current LOS: 1 Anticipated DC Date: 12-12-2018 Planned Disposition: [facility] Facility Primary Insurance: MEDICARE A & B Discharge Planning Comments: CM met with patient to complete initial dc planning assessment. CM educated patient on the CM role and verbal consent given by patient to complete assessment. Patient lives at [facility]. At discharge patient plans to return to [facility] and feels this is a safe discharge. Patient denied known discharge needs at this time. CM will continue to follow and will assist as needed with dc plans/needs. Oil Dispenser: Irene Zhang RN, [facility] DCPIA - Discharge Planning Initial Assessment Updated by [email or web address]: Irene Zhang on 12/09/18 1:18 pm * Is the patient Alert and Oriented? Yes * How many steps to enter\exit or inside your home? None * PCP [facility] * Pharmacy [facility] * Preadmission Environment [facility] Facility * Facility Name [facility] * ADLs Partial Dependent * Partial ADLs (Assistance needed) Bathing Medication Management * Equipment Oxygen * Other Equipment trach * List name and contact numbers for known caregivers / representatives who currently or will assist patient after discharge: Raegan Pritchett friend - [phone] * Verbal permission to speak to the caregivers and representatives has been obtained from the patient. Yes * Community resources currently utilized None * Additional services required to return to the preadmission environment? No * Can the patient safely return to the preadmission environment? Yes * Has this patient been hospitalized within the prior 30 days at any hospital? No Patient Name: CELY ANN Page [id number] at 1320 All edits/amendments must be made on the electronic document DICTATION DATE: 12/09/18 131 CASTING DIRECTOR: DOMINIC 12/09/181318 RPT#: [id number] DC DATE: STATUS: ADM IN [facility] [address] [place] [address] END OF REPORT
[2018-12-09 15:39] VITALS: BP 99/53
[2018-12-09 17:39] VITALS: BP 107/66; BMI 22.3
--- NOTE | 2018-12-09 19:00 | NUR ---
REPORT RECEIVED AND CARE OF PT ASSUMED. PT SITTING UP ON SIDE OF BED WATCHING TV. IV IN LEFT UPPER ARM SALINE LOCKED. WILL MONITOR FOR NEEDS.
--- NOTE | 2018-12-09 19:41 | NUR ---
STARTED IV FLUIDS AT KVO. IVPB VANCOMYCIN AND ZOSYN STARTED. GAVE MORPHINE AND ZOFRAN IVP PER PT REQUEST FOR NAUSEA AND PAIN. WILL MONITOR FOR NEEDS.
[2018-12-09 20:00] VITALS: BP 85/66
--- NOTE | 2018-12-09 21:50 | NUR ---
MORPHINE 4 MG IVP GIVEN PER PT REQUEST FOR CHRONIC PAIN. WILL MONITOR FOR NEEDS. CALL LIGHT WITHIN REACH.
[2018-12-10 00:41] VITALS: BP 173/75
--- NOTE | 2018-12-10 02:31 | NUR ---
PT PULLED OUT IV WITH CATHETER TIP INTACT. RE-SITED BY RADHA DRISCOLL LPN IN RIGHT UPPER ARM USING 22 GUAGE CATHETER.
--- NOTE | 2018-12-10 05:22 | NUR ---
PT REQUESTING PAIN MEDICATION EVERY 30-40 MINS....GIVEN EVERY 2 HOURS PER PRN ORDER. SITTING UP IN BED AND WILL NOT SLEEP. C/O NAUSEA AND RECEIVING ZOFRAN OFTEN ALLOWED.
[2018-12-10 05:25] VITALS: BP 164/92
[2018-12-10 06:22] LABS: BASOPHILS 0.1 % (0-2); EOSINOPHILS 0 % (0-7); HEMATOCRIT 33.1 % (36.0-48.0); HEMOGLOBIN 9.9 g/dL (12-16); IMMATURE GRANULOCYTES 0.4 % (0-5); LYMPHOCYTES 4.3 % (15-50); MCH 26.8 pg (26.0-34.0); MCHC 29.9 g/dL (31.0-37.0); MCV 89.7 fL (80.0-100.0); MEAN PLATELET VOLUME 12.4 fL (7.4-10.4); MONOCYTES 1.2 % (2-11); PLATELET COUNT 221 10x3/uL (130-400); RBC 3.69 10x6/uL (4.00-5.40); RDW 13.7 % (11.5-14.5)
[2018-12-10 06:28] LABS: WBC 9.7 10x3/uL (4.8-10.8)
[2018-12-10 06:35] LABS: ALBUMIN 2.7 g/dL (3.4-5.0); ALKALINE PHOSPHATASE 70 U/L (46-116); ALT (SGPT) 14 U/L (10-68); BILIRUBIN - TOTAL 0.13 mg/dL (0.2-1.3); CALCIUM 8.1 mg/dL (8.5-10.1); CARBON DIOXIDE 29.9 mmol/L (21.0-32.0); CHLORIDE - SERUM 104 mmol/L (98-107); CREATININE - SERUM 0.7 mg/dL (0.6-1.3); MAGNESIUM - SERUM 2.1 mg/dL (1.8-2.4); PHOSPHOROUS 4.1 mg/dL (2.5-4.9); POTASSIUM - SERUM 4.5 mmol/L (3.5-5.1); PROTEIN - SERUM 6.3 g/dL (6.4-8.2); SODIUM 143 mmol/L (136-145); eGFR NON AFRICAN AMERICAN 90 mL/min (90-120)
[2018-12-10 06:40] LABS: CALC OSMOLALITY 291 mosm/kg (275-300); GLUCOSE 176 mg/dL (74-106); UREA NITROGEN 22 mg/dL (7-18)
--- NOTE | 2018-12-10 08:27 | NUR ---
AWAKE AND ALERT. ORIENTED X3. NO C/O AT THIS TIME. LUNGS ARE CLEAR BILATERALLY, NO COUGH NOTED. SKIN IS INTACT WITHOUT REDNESS. LUNGS ARE CLEAR BUT DIMINISHED THROUGHOUT. OCCASSIONAL DRY COUGH NOTED. IV TO RIGHT UPPER ARM IS PATENT WITHOUT REDNESS AT INSERTION SITE. OLD TRACH NOTED. DENIES NEEDS.
[2018-12-10 08:30] VITALS: BP 182/80
--- NOTE | 2018-12-10 09:15 | NUR ---
REQUESTED AND GIVEN 4MG MORPHINE SLOW IVP FOR C/O GENERALIZED PAIN LEVEL 10. WILL MONITOR.
[2018-12-10 11:26] VITALS: Ht 162.6 cm; Wt 59.0 kg
[2018-12-10 12:30] VITALS: BP 121/53; BP 165/60
--- NOTE | 2018-12-10 15:15 | NUR ---
REQUESTED AND GIVEN 4MG MORPHINE SLOW IVP FOR C/O GENERALIZED PAIN LEVEL 10. WILL MONITOR.
--- NOTE | 2018-12-10 18:53 | NUR ---
SITTING UP ON SIDE OF BED EATING SUPPER. NO CHANGES NOTED DENIES NEEDS..
--- NOTE | 2018-12-10 19:00 | NUR ---
REPORT RECEIVED AND CARE OF PT ASSUMED. PT SITTING UP ON SIDE OF BED RECEIVING BREATHING TX AT THIS TIME. IV IN RIGHT UPPER ARM PATENT WITH NS INFUSING AT KVO. O2 IN USE VIA TRACK COLLAR AT 12L. WILL MONITOR FOR NEEDS. CALL LIGHT WITHIN REACH.
[2018-12-10 20:00] VITALS: BP 190/104
--- NOTE | 2018-12-10 20:39 | NUR ---
HS MEDICATIONS GIVEN TO INCLUDE MORPHINE 4 MG IVP, ZOFRAN 4 MG IVP, ZANAFLEX PO AND MELATONIN PO PER PRN ORDERS, PER REQUEST FOR PAIN , NAUSEA AND SLEEP. WILL MONITOR FOR EFFECTIVENESS.
--- NOTE | 2018-12-10 21:37 | NUR ---
PT SITTING UP ON SIDE OF BED...REFUSING TO LIE DOWN OR EVEN TRY TO SLEEP.
--- NOTE | 2018-12-10 22:00 | NUR ---
ALL BEDDING CHANGED.
[2018-12-11 04:00] VITALS: BP 156/76
--- NOTE | 2018-12-11 05:14 | NUR ---
PT SLEPT SOME OVERNIGHT...MORE THAN PREVIOUS NIGHT. WILL CONTINUE TO MONITOR FOR NEEDS.
--- NOTE | 2018-12-11 05:23 | NUR ---
PT BATHED AND GIVEN CLEAN SCRUBS PER REQUEST. WILL CONTINUE TO MONITOR FOR NEEDS.
[2018-12-11 06:24] LABS: BASOPHILS 0.1 % (0-2); EOSINOPHILS 0 % (0-7); HEMATOCRIT 35.4 % (36.0-48.0); HEMOGLOBIN 10.5 g/dL (12-16); IMMATURE GRANULOCYTES 0.4 % (0-5); LYMPHOCYTES 7.1 % (15-50); MCH 26.9 pg (26.0-34.0); MCHC 29.7 g/dL (31.0-37.0); MCV 90.5 fL (80.0-100.0); MEAN PLATELET VOLUME 11.8 fL (7.4-10.4); MONOCYTES 5.1 % (2-11); NEUTROPHILS 87.3 % (40-80); PLATELET COUNT 268 10x3/uL (130-400); RBC 3.91 10x6/uL (4.00-5.40); RDW 13.7 % (11.5-14.5); WBC 14.3 10x3/uL (4.8-10.8)
[2018-12-11 06:34] LABS: CALC OSMOLALITY 294 mosm/kg (275-300); CALCIUM 8.3 mg/dL (8.5-10.1); CARBON DIOXIDE 28.4 mmol/L (21.0-32.0); CHLORIDE - SERUM 106 mmol/L (98-107); CREATININE - SERUM 0.7 mg/dL (0.6-1.3); DIGOXIN 0.44 ng/mL (0.90-2.00); POTASSIUM - SERUM 4.3 mmol/L (3.5-5.1); SODIUM 146 mmol/L (136-145); UREA NITROGEN 22 mg/dL (7-18); eGFR NON AFRICAN AMERICAN 90 mL/min (90-120)
[2018-12-11 06:35] LABS: GLUCOSE 122 mg/dL (74-106)
--- NOTE | 2018-12-11 08:16 | NUR ---
AWAKE AND ALERT. ORIENTED X3. NO C/O AT THIS TIME. LUNGS ARE CLEAR BUT DIMINISHED THROUGHOUT, OCCASSIONAL PRODUCTIVE COUGH NOTED. SKIN IS INTACT WITHOUT REDNESS. IV TO RIGHT UPPER ARM IS PATENT WITHOUT REDNESS AT INSERTION SITE. DENIES NEEDS.
[2018-12-11 09:21] VITALS: BP 147/67
--- NOTE | 2018-12-11 10:15 | NUR ---
REQUESTED AND GIVEN 4MG MORPHINE SLOW IVP FOR C/O GENERALIZED PAIN LEVEL 10. WILL MONITOR.
[2018-12-11 16:56] VITALS: BP 158/89
--- NOTE | 2018-12-11 17:00 | NUR ---
DEEP SUCTIONED USING STERILE TECHNIQUE WITH GOOD RESULTS. NO FURTHER NEEDS. NOTED.
--- NOTE | 2018-12-11 17:30 | NUR ---
WANTED TO BE SUCTIONED AGAIN. REFUSED AT THIS TIME. GIVEN YONKER AND INSTRUCTED IN ITS USE. 02 SAT 92% AT THIS TIME. PLAYED AROUND WITH SUPPER. NO CHANGES NOTED. DENIES NEEDS.
--- NOTE | 2018-12-11 19:00 | NUR ---
REPORT RECEIVED AND CARE OF PT ASSUMED. PT SITTING UP ON SIDE OF BED WATCHING TV. IV IN RIGHT UPPER ARM....PINK / TENDER, BUT FLUSHES WELL...WILL MONITOR CLOSLEY. O2 IN USE VIA TRACH COLLAR AT 12 L. WILL MONITOR FOR NEEDS.
--- NOTE | 2018-12-11 19:10 | MORECARE ---
CASE MANAGEMENT DISCHARGE SUMMARY PATIENT: CELY ANN UNIT: [id number] ADM DATE: 12/09/18 AGE: 63 : 55 SEX: F ROOM/BED: D.2220 AUTHOR: AYLA,DOC PHYSICIAN: REFERRING PHYSICIAN: JUAN PABLO MONTANO MD DATE OF SERVICE: 12/11/18 Discharge Plan Patient Name: CELY ANN Facility: [facility]:[place] : 1955 Planned Disposition: Longterm Facility Anticipated Discharge Date: 12/12/18 Discharge Date: Expected LOS: 3 Initial Reviewer: [email or web address] Initial Review Date: 12/09/2018 Generated: 12/11/18 8:10 pm Comments DCP- Discharge Planning Updated by [email or web address]: Chantel Tanner on 12/11/18 6:[address] PATIENT WITH SOME RESP DIFFICULTY. NURSE AT THE BEDSIDE. CM CONSULT ORDERED12/09/18. PATIENT WAS ASSESSED BY ER COURT BAILIFF. PLAN IS TO RETURN TO THE [facility]. SHE STATED IF CM HAD ANY QUESTIONS TO CONTACT MARITZA OBRIEN. DCP- Discharge Planning Updated by [email or web address]: Irene Zhang on 12/09/18 12:[address] Patient Name: CELY ANN Admission Status: ER Accout number: [id number] Admission Date: 12-09-2018 : 1955 Admission Diagnosis: Attending: JUAN PABLO MONTANO Current LOS: 1 Anticipated DC Date: 12-12-2018 Planned Disposition: Longterm Facility Primary Insurance: MEDICARE A & B Discharge Planning Comments: CM met with patient to complete initial dc planning assessment. CM educated patient on the CM role and verbal consent given by patient to complete assessment. Patient lives at [facility]. At discharge patient plans to return to [facility] and feels this is a safe discharge. Patient denied known discharge needs at this time. CM will continue to follow and will assist as needed with dc plans/needs. Germination Worker: Irene Zhang RN, [facility] DCPIA - Discharge Planning Initial Assessment Updated by [email or web address]: Irene Zhang on 12/09/18 1:18 pm * Is the patient Alert and Oriented? Yes * How many steps to enter\exit or inside your home? None * PCP [facility] * Pharmacy [facility] * Preadmission Environment Longterm Facility * Facility Name [facility] * ADLs Partial Dependent * Partial ADLs (Assistance needed) Bathing Medication Management * Equipment Oxygen * Other Equipment trach * List name and contact numbers for known caregivers / representatives who currently or will assist patient after discharge: Raegan Obrien - [place] - [phone] * Verbal permission to speak to the caregivers and representatives has been obtained from the patient. Yes * Community resources currently utilized None * Additional services required to return to the preadmission environment? No * Can the patient safely return to the preadmission environment? Yes * Has this patient been hospitalized within the prior 30 days at any hospital? No Last DP export: 12/09/18 12:20 p Patient Name: CELY ANN Page [id number] at 1910 All edits/amendments must be made on the electronic document DICTATION DATE: 12/11/181908 CLINICAL ENGINEERING DIRECTOR: DOMINIC 12/11/181908 RPT#: [id number] DC DATE: STATUS: ADM IN [facility] [address] [place] [address] END OF REPORT
[2018-12-11 20:00] VITALS: BP 188/90
--- NOTE | 2018-12-11 20:10 | NUR ---
HS MEDICATIONS GIVEN TO INCLUDE NORCO AND ZANAFLEX FOR PAIN, ZOFRAN FOR NAUSEA, AND ATIVAN FOR ANXIETY. WILL MONITOR FOR EFFECTIVENESS.
--- NOTE | 2018-12-11 20:46 | NUR ---
ASSISTED UP UP TO [facility]. VOIDED AND HAD LARGE SOFT BM. WILL CONTINUE TO MONITOR FOR NEEDS.
--- NOTE | 2018-12-11 20:59 | NUR ---
ASSISTED PT IN CHANGING INTO [place]. WILL CONTINUE TO MONITOR FOR NEEDS.
--- NOTE | 2018-12-11 21:57 | NUR ---
PT STILL C/O GENERALIZED PAIN. GAVE MORPHINE 4 MG IVP PER PRN ORDER. POSITIONED IN BED FOR COMFORT. WILL CONTINUE TO MONITOR FOR NEEDS.
[2018-12-12 05:16] LABS: BASOPHILS 0.1 % (0-2); EOSINOPHILS 0 % (0-7); HEMATOCRIT 33.9 % (36.0-48.0); HEMOGLOBIN 9.9 g/dL (12-16); IMMATURE GRANULOCYTES 0.2 % (0-5); LYMPHOCYTES 3.6 % (15-50); MCH 26.8 pg (26.0-34.0); MCHC 29.2 g/dL (31.0-37.0); MCV 91.6 fL (80.0-100.0); MEAN PLATELET VOLUME 12.2 fL (7.4-10.4); MONOCYTES 5.2 % (2-11); NEUTROPHILS 90.9 % (40-80); PLATELET COUNT 222 10x3/uL (130-400); RDW 13.6 % (11.5-14.5); WBC 11.6 10x3/uL (4.8-10.8)
[2018-12-12 05:35] LABS: CALC OSMOLALITY 294 mosm/kg (275-300); CALCIUM 7.8 mg/dL (8.5-10.1); CHLORIDE - SERUM 107 mmol/L (98-107); CREATININE - SERUM 0.6 mg/dL (0.6-1.3); GLUCOSE 143 mg/dL (74-106); POTASSIUM - SERUM 4.1 mmol/L (3.5-5.1); SODIUM 144 mmol/L (136-145); eGFR NON AFRICAN AMERICAN > 90 mL/min (90-120)
[2018-12-12 05:44] LABS: UREA NITROGEN 29 mg/dL (7-18)
--- NOTE | 2018-12-12 07:30 | NUR ---
REPORT RECIEVED ASSUMED CARE. PATIENT IN BED WITH IV INTACT. EYES CLOSED RESTING QUEITLY. CALL LIGHT WITHIN REACH.
[2018-12-12 08:25] VITALS: BP 141/96
--- NOTE | 2018-12-12 08:26 | NUR ---
PATIENT RECIEVED MORPHINE FOR PAIN. REFUSES TO TAKE NORCO. STATES IT DOESNT WORK. IV INTACT. NO COMPLAINTS. CALL LIGHT WITHIN REACH.
[2018-12-12 12:26] VITALS: BP 181/100
--- NOTE | 2018-12-12 13:55 | NUR ---
PATIENT LINE PLACED AT THIS TIME.
--- NOTE | 2018-12-12 14:30 | NUR ---
PATIENT IV INTACT. RECIEVED MORPHINE FOR PAIN AGAIN. CALL LIGHT WITHIN REACH.
--- NOTE | 2018-12-12 16:00 | NUR ---
PATIENT SITTING UP ON THE SIDE OF THE BED SLEEPING ON AND OFF. IV INTACT. NOC OMPLAINTS. CALL LIGHT WITHIN REACH.
--- NOTE | 2018-12-12 16:55 | NUR ---
PATIENT RECIEVED MORPHINE BY SURAJ MEADOWS. IV INTACT. CALL LIGHT WITHIN REACH.
[2018-12-12 17:23] VITALS: BP 93/75
--- NOTE | 2018-12-12 18:20 | NUR ---
PATIENT RECIEVED SCHEDULED MEDS. ASKING FOR MORPHINE. EXPLAINED ITS NOT TIME. STILL REFUSES NORCO. IV TO RUE REMOVED WITH CATH TIP INTACT. CALL LIGHT WITHIN REACH.
--- NOTE | 2018-12-12 19:45 | NUR ---
ASESSMENT PER FLOWSHEET. IV PATENT LEFT MIDLINE SITE WITH NS AT KVO RATE. TRACH MASK ON AT 14 L. PRODUCTIVE COUGH NOTED. EXPLAINED TO PATIENT THAT HER DOCTOR JUST WROTE AN ORDER TO DISCONTINUE HER MORPHINE. SO SHE WILL HAVE TO USE NORCO FOR PAIN ALSO A FENTANYL PATCH 25MCG APPLIED TO RT UPPER ARM.
[2018-12-12 20:00] VITALS: BP 181/77
[2018-12-13 04:00] VITALS: BP 178/86
--- NOTE | 2018-12-13 04:08 | NUR ---
REQUESTING PAIN MED FOR GENERALIZED ACHING IN BACK AND CHEST. NORCO 10/325MG TAB ONE PO GIVEN FOR PAIN CONTROL.
[2018-12-13 05:44] LABS: BASOPHILS 0 % (0-2); EOSINOPHILS 0 % (0-7); HEMATOCRIT 32.2 % (36.0-48.0); HEMOGLOBIN 9.7 g/dL (12-16); IMMATURE GRANULOCYTES 0.3 % (0-5); LYMPHOCYTES 6.9 % (15-50); MCH 26.7 pg (26.0-34.0); MCHC 30.1 g/dL (31.0-37.0); MEAN PLATELET VOLUME 11.7 fL (7.4-10.4); MONOCYTES 9.7 % (2-11); NEUTROPHILS 83.1 % (40-80); PLATELET COUNT 236 10x3/uL (130-400); RBC 3.63 10x6/uL (4.00-5.40); RDW 13.4 % (11.5-14.5); WBC 8.7 10x3/uL (4.8-10.8)
[2018-12-13 05:59] LABS: CALC OSMOLALITY 293 mosm/kg (275-300); CALCIUM 8.1 mg/dL (8.5-10.1); CARBON DIOXIDE 33.6 mmol/L (21.0-32.0); CHLORIDE - SERUM 106 mmol/L (98-107); CREATININE - SERUM 0.6 mg/dL (0.6-1.3); GLUCOSE 108 mg/dL (74-106); POTASSIUM - SERUM 3.6 mmol/L (3.5-5.1); SODIUM 146 mmol/L (136-145); eGFR NON AFRICAN AMERICAN > 90 mL/min (90-120)
[2018-12-13 06:00] LABS: UREA NITROGEN 19 mg/dL (7-18)
[2018-12-13 06:03] LABS: MCV 88.7 fL (80.0-100.0)
--- NOTE | 2018-12-13 08:26 | NUR ---
NOTIFIED DR. MONTANO'S OFFICE THAT PATIENT PRESSURE 197/93 AT THIS TIME. EXPLAINED I WOULD GIVE BP MEDS AND THAT IF I WAS NEEDED TO DO ANYTHING ELSE TO LET ME KNOW. OFFICE SENT MESSAGE TO ANTONIO CLARK.
[2018-12-13 08:28] VITALS: BP 202/97
[2018-12-13 11:55] VITALS: BP 188/90
--- NOTE | 2018-12-13 12:22 | NUR ---
NUTRITION F/U PT WITH POOR RECENT PO INTAKE. STATES SHE DOESN'T HAVE MUCH OF AN APPETITE. ENCOURAGED PO INTAKE. WILL HONOR FOOD PREFERENCES, MONITOR INTAKE. RD FOLLOWING
[2018-12-13 16:58] VITALS: BP 173/86
[2018-12-13 20:00] VITALS: BP 110/70
[2018-12-14] VITALS: BP 155/86
[2018-12-14 04:00] VITALS: BP 176/92
[2018-12-14 10:04] VITALS: BP 161/83
[2018-12-14 17:34] VITALS: BP 136/79
[2018-12-14 20:54] VITALS: BP 175/82
--- NOTE | 2018-12-15 06:40 | NUR ---
C/O PAIN NORCO TAB ONE PO GIVEN FOR PAIN CONTROL.
[2018-12-15 08:51] VITALS: BP 171/88
--- NOTE | 2018-12-15 11:19 | NUR ---
PT RESTING IN BED. NO SIGNS OF DISTRESS. IV TO LEFT UPPER MIDLINE PATENT NO REDNESS OR TENDERNESS. COMPLAINS OF PAIN. MEDICATIONS GIVEN. HAS TRACH COLLOR. DENIES ANY OTHER NEED AT THIS TIME. CALL LIGHT IN REACH. BED LOW POSITION. NO FAMILY AT BEDSIDE.
[2018-12-15 11:23] LABS: AEROBE ID Final report (())
[2018-12-15 13:03] VITALS: BP 181/94
--- NOTE | 2018-12-15 15:17 | NUR ---
PT RESTINGI N BED WITH EYES OPEN. RESPIRATIONS ARE EVEN AND UNLABORED. PT WITH TRACH COLLAR @36% PT REPORTS PAIN IN FEET. WILL NOTIFY NURSE. PT WITH EXP. WHEEZES PRESENT IN BILATERAL LOBES AND DIMINISHED LUNG SOUNDS IN BASES. BED IS IN THE LOWEST POSITION. CALL LIGHT AND BEDSIDE TABLE ARE WITHIN REACH. PT DENIES FURTHER NEEDS AT THIS TIME.
[2018-12-15 16:30] VITALS: BP 132/62
[2018-12-16 04:13] LABS: BASOPHILS 0.1 % (0-2); EOSINOPHILS 0.3 % (0-7); HEMATOCRIT 34.6 % (36.0-48.0); HEMOGLOBIN 10.2 g/dL (12-16); IMMATURE GRANULOCYTES 0.7 % (0-5); LYMPHOCYTES 11.8 % (15-50); MCH 26.2 pg (26.0-34.0); MCHC 29.5 g/dL (31.0-37.0); MCV 88.9 fL (80.0-100.0); MEAN PLATELET VOLUME 11.5 fL (7.4-10.4); MONOCYTES 7.6 % (2-11); NEUTROPHILS 79.5 % (40-80); PLATELET COUNT 217 10x3/uL (130-400); RBC 3.89 10x6/uL (4.00-5.40); RDW 13.5 % (11.5-14.5); WBC 9.9 10x3/uL (4.8-10.8)
[2018-12-16 04:41] LABS: CALC OSMOLALITY 293 mosm/kg (275-300); CALCIUM 8.1 mg/dL (8.5-10.1); CARBON DIOXIDE 35.4 mmol/L (21.0-32.0); CHLORIDE - SERUM 103 mmol/L (98-107); CREATININE - SERUM 0.6 mg/dL (0.6-1.3); GLUCOSE 111 mg/dL (74-106); POTASSIUM - SERUM 3.2 mmol/L (3.5-5.1); SODIUM 146 mmol/L (136-145); UREA NITROGEN 18 mg/dL (7-18); eGFR NON AFRICAN AMERICAN > 90 mL/min (90-120)
[2018-12-16 09:46] VITALS: BP 172/74
--- NOTE | 2018-12-16 19:00 | NUR ---
REPORT RECEIVED AND CARE OF PT ASSUMED. PT SITTING ON THE SIDE OF BED WATCHING TV. WHEN I ENTERED ROOM SHE GAVE ME A PIECE OF PAPER WITH HER CONCERNS WRITTEN ON IT....CONCERNING THE DECREASE IN HER PAIN MEDICATIONS PER HER PHYSICIAN. I TOLD HER THAT SHE WOULD NEED TO SPEAK TO THE PHYSICIAN ABOUT HER MEDICATION ORDERS. WILL MONITOR FOR NEEDS.
[2018-12-16 20:00] VITALS: BP 155/57
--- NOTE | 2018-12-16 21:49 | NUR ---
HS MEDICATIONS GIVEN TO INCLUDE NORCO 10 , ZANAFLEX, ATIVAN, AND MELATONIN PER REQUEST, PER PRN ORDERS. WILL MONITOR FOR EFFECTIVENESS. CALL LIGHT WITHIN REACH.
--- NOTE | 2018-12-16 23:27 | NUR ---
PT RESTING IN HIGH MENDES'S POSITION WITH EYES CLOSED. O2 VIA TRACH COLLAR IN USE AT 40%. WILL CONTINUE TO MONITOR FOR NEEDS.
[2018-12-17 04:00] VITALS: BP 156/80
[2018-12-17 05:29] LABS: BASOPHILS 0 % (0-2); EOSINOPHILS 0.5 % (0-7); HEMATOCRIT 32.7 % (36.0-48.0); HEMOGLOBIN 9.7 g/dL (12-16); IMMATURE GRANULOCYTES 0.7 % (0-5); MCH 26.4 pg (26.0-34.0); MCHC 29.7 g/dL (31.0-37.0); MCV 89.1 fL (80.0-100.0); MEAN PLATELET VOLUME 11.7 fL (7.4-10.4); NEUTROPHILS 76.8 % (40-80); RBC 3.67 10x6/uL (4.00-5.40); RDW 13.7 % (11.5-14.5); WBC 8.4 10x3/uL (4.8-10.8)
[2018-12-17 05:37] LABS: PLATELET COUNT 172 10x3/uL (130-400)
[2018-12-17 05:54] LABS: CALC OSMOLALITY 296 mosm/kg (275-300); CALCIUM 8.2 mg/dL (8.5-10.1); CARBON DIOXIDE 34.9 mmol/L (21.0-32.0); CHLORIDE - SERUM 107 mmol/L (98-107); CREATININE - SERUM 0.7 mg/dL (0.6-1.3); GLUCOSE 93 mg/dL (74-106); SODIUM 148 mmol/L (136-145); UREA NITROGEN 22 mg/dL (7-18); eGFR NON AFRICAN AMERICAN 90 mL/min (90-120)
--- NOTE | 2018-12-17 07:45 | NUR ---
PATIENT IN BED WITH IV INTACT. NO COMPLAINTS OR SIGNS OF DISTRESS. EYES CLOSED RESTING QUIETLY. CALL LIGHT WITHIN REACH.
--- NOTE | 2018-12-17 08:30 | NUR ---
PATIENT SITTING ON BED SLOUCHED OVER WITH EYES CLOSED RESTING QUIETLY. IV INTACT. CALL LIGHT WITHIN REACH.
[2018-12-17 08:55] VITALS: BP 195/109
--- NOTE | 2018-12-17 09:42 | NUR ---
WOKE PATIENT UP TO TAKE MEDS. IV INTACT. CALL LIGHT WITHIN REACH.
[2018-12-17 12:23] VITALS: BP 167/82
--- NOTE | 2018-12-17 16:20 | NUR ---
PATIENT COMPLAINING AGAIN ABOUT PAIN MEDS. STATES THAT SHE DOESNT GET ENOUGH. PATIENT HAS FENTANYL PATCH 25 AND GETS NORCO Q 6. WANTS MORPHINE IV. PHYSICIAN AND FOREST RESOURCE SPECIALIST AWARE. EXPLAINED TO DR. JOHNSON. DR. JOHNSON STATED JUST TO MAKE SURE THAT PCP KNEW ABOUT PATIENTS REQUEST.
[2018-12-17 16:45] VITALS: BP 154/57
--- NOTE | 2018-12-17 17:36 | NUR ---
PATIENT SITTING UP IN BED WITH IV INTACT. NO COMPLAINTS OR SIGNS OF DISTRESS. CALL LIGHT WITHIN REACH. PATIENT EATING AT THIS TIME
--- NOTE | 2018-12-17 17:57 | NUR ---
DAVEY CLARK CALLED AND STATED TO INCREASE FENTANYL TO 50. NOTIFIED PATIENT. PATIENT STATED IT WOULDNT WORK EVEN THOUGHT IT IS MORE. EXPLAINED TO PATIENT THAT SHE NEEDED TO TRY AND SEE IF IT WORKS BECAUSE SHE TAKES THE NORCO ALREADY AT THE ALF AND SHE WOULD NOT BE ABLE TO RECIEVE IVPAIN MEDS AT [place]. VERBALIZED UNDERSTANDING. CALL LIGHT WITHIN REACH.
--- NOTE | 2018-12-17 19:00 | NUR ---
REPORT RECEIVED AND CARE OF PT ASSUMED. PT SITTING UP ON SIDE OF BED WATCHING TV. LEFT MIDLINE PATENT WITH NS INFUSING AT KVO. TRACH COLLAR IN USE AT 40%. WILL MONITOR FOR NEEDS.
[2018-12-17 20:03] VITALS: BP 184/74
--- NOTE | 2018-12-17 21:48 | NUR ---
HS MEDICATIONS GIVEN TO INCLUDE MELATONIN, ZANAFLEX, ATIVAN AND NORCO PER REQUEST, PER PRN ORDERS. WILL CONTINUE TO MONITOR FOR NEEDS.
--- NOTE | 2018-12-17 23:14 | NUR ---
GAVE ICE CREAM AND LASHAWN CRACKERS FOR HS SNACK.
[2018-12-18 00:40] VITALS: BP 103/51
--- NOTE | 2018-12-18 02:10 | NUR ---
PT O2 SATS DOWN TO 70...BEGAN SUCTIONING AND CALLED RT. PT WAS DEEP SUCTIONED AND O2 INCREASED TO 60% VIA TRACH COLAR. O2 NOW 98% .
--- NOTE | 2018-12-18 02:33 | NUR ---
ALL IV TUBING CHANGED AND MARKED WITH NEXT DUE DATE.
--- NOTE | 2018-12-18 04:31 | NUR ---
DEEP SUCTIONED TRACH USING STERILE TECHINIQUE. SPO2 95% / PULSE 103. PT RESTING QUIETLY AT THIS TIME.
[2018-12-18 05:01] VITALS: BP 140/73
--- NOTE | 2018-12-18 07:45 | NUR ---
PATIENT IN BED WITH IV INTACT. NO COMPLAINTS OR SIGNS OF DISTRESS. CALL LIGHT AXEL MORENO.
[2018-12-18 07:56] LABS: BASOPHILS 0.1 % (0-2); EOSINOPHILS 0.1 % (0-7); HEMATOCRIT 37.7 % (36.0-48.0); IMMATURE GRANULOCYTES 0.3 % (0-5); LYMPHOCYTES 2.4 % (15-50); MCH 26.4 pg (26.0-34.0); MCHC 29.2 g/dL (31.0-37.0); MCV 90.4 fL (80.0-100.0); MEAN PLATELET VOLUME 11.5 fL (7.4-10.4); MONOCYTES 4.7 % (2-11); NEUTROPHILS 92.4 % (40-80); PLATELET COUNT 160 10x3/uL (130-400); RBC 4.17 10x6/uL (4.00-5.40); RDW 13.8 % (11.5-14.5)
[2018-12-18 08:00] LABS: WBC 18.4 10x3/uL (4.8-10.8)
--- NOTE | 2018-12-18 08:30 | NUR ---
SPOKE WITH JUAN F CLARK AND DR. THURSTON ABOUT PATIENT STATING HER PAIN MEDS ARE NOT ENOUGH. EXPLAINED THAT PATIENT IS FALLING ASLEEP SITTING UP OFF AND ON AND DOESNT SEEM TO BE IN A LOT OF PAIN BUT ALWAYS REPORTS HER PAIN IS 10/10. IN TO SEE PATIENT.
[2018-12-18 08:46] VITALS: BP 156/85
[2018-12-18 16:00] VITALS: BP 153/85
--- NOTE | 2018-12-18 18:45 | NUR ---
PATIENT IN BED WITH IV INTACT. TRACH COLLAR ON. NO COMPLAINTS. CALL LIGHT WITHIN REACH.
--- NOTE | 2018-12-18 19:00 | NUR ---
REPORT RECEIVED AND CARE OF PT ASSUMED. PT SITTING UP ON SIDE OF BED WATCHING TV. TRACH COLLAR IN USE AT 60% . MIDLINE PATENT WITH NS INFUSING AT KVO. WILL MONITOR FOR NEEDS.
[2018-12-18 20:00] VITALS: BP 131/67
--- NOTE | 2018-12-18 21:50 | NUR ---
HS MEDICAITONS GIVEN TO INCLUDE ZANAFLEX, NORCO, ATIVAN, AND MELATONIN PER PRN ORDERS, PER REQUEST FOR PAIN AND SLEEP. WILL MONITOR FOR EFFECTIVENESS. CALL LIGHT WITHIN REACH.
--- NOTE | 2018-12-19 02:02 | NUR ---
DECREASED PATIENTS FIO2 FROM 95% TC TO 40% TC AND PATIENTS SPO2 99%
[2018-12-19 04:00] VITALS: BP 115/60
[2018-12-19 06:31] LABS: BASOPHILS 0 % (0-2); EOSINOPHILS 0.9 % (0-7); HEMATOCRIT 32.9 % (36.0-48.0); HEMOGLOBIN 9.5 g/dL (12-16); IMMATURE GRANULOCYTES 0.4 % (0-5); LYMPHOCYTES 4.4 % (15-50); MCH 26.5 pg (26.0-34.0); MCHC 28.9 g/dL (31.0-37.0); MCV 91.6 fL (80.0-100.0); MEAN PLATELET VOLUME 12.9 fL (7.4-10.4); MONOCYTES 3.2 % (2-11); NEUTROPHILS 91.1 % (40-80); PLATELET COUNT 158 10x3/uL (130-400); RBC 3.59 10x6/uL (4.00-5.40); RDW 14.3 % (11.5-14.5); WBC 13.9 10x3/uL (4.8-10.8)
[2018-12-19 07:02] LABS: ANION GAP 8.9 mmol/L (8-16); CALCIUM 8.8 mg/dL (8.5-10.1); CARBON DIOXIDE 34.9 mmol/L (21.0-32.0)
[2018-12-19 07:06] LABS: CREATININE - SERUM 0.9 mg/dL (0.6-1.3); POTASSIUM - SERUM 3.8 mmol/L (3.5-5.1)
[2018-12-19 09:00] VITALS: BP 111/75
--- NOTE | 2018-12-19 09:44 | NUR ---
ALERT AND ORIENTED SITTING ON SIDE OF BED. TRACH COLLAR INFUSING 40% FENTANYL PATCH CHANGED WITH 25MG TO LEFT CHEST WALL AND 12 MG TO RIGHT CHEST WALL. LEFT MIDLINE INFUSING AT KVO RATE. UP WITH ASSIST. ENCOURAGED TO USE CALL LIGHT FOR ASSIST. ABLE TO VOICE NEEDS AND CONCERNS.
[2018-12-19 13:34] VITALS: BP 137/60
[2018-12-19 16:00] VITALS: BP 147/45
--- NOTE | 2018-12-19 18:18 | NUR ---
ASSESSED RESP STATUS SPO2 [id number] CHART COLLECTOR TRACHE COLLAR. COARSE BS TO ANTERIOR QUEEN AUSCULATATION KONRAD TX WELL
--- NOTE | 2018-12-19 18:19 | NUR ---
SUCTIONED APROX 5 CC YELLOW SECRETIONS VIA TRACHEAL STOMA PT TOLERATED WELL
[2018-12-19 20:00] VITALS: BP 167/82
--- NOTE | 2018-12-19 20:00 | NUR ---
ASSESSMENT PER FLOWSHEET. IV PATENT LEFT UPPER ARM MIDLINE WITH NS AT KVO RATE. PATIENT SITTING ON SIDE OF BED. SR UP X2 CALL LIGHT WITHIN REACH. PATIENT SOMEWHAT DROWSEY. O2 ON PER TRACH COLLAR AR 15 L/M.
--- NOTE | 2018-12-19 21:15 | NUR ---
MEDS GIVEN PER JAN. REPOSITIONED PATIENT IN BED.CALL LIGHT WITHIN REACH.
--- NOTE | 2018-12-19 22:59 | NUR ---
SUCTIONED APROX 5 CC YELLOW SPUTUM VIA TRACHEAL STOMA KONRAD WELL
--- NOTE | 2018-12-20 | NUR ---
EYES CLOSED RESPIRATIONS WITH EASE AND UNLABORED. BEDSIDE UPDRAFT TX GIVEN PER RT TECH.
--- NOTE | 2018-12-20 02:52 | NUR ---
SUCTIONED APPRX 3CC YELLOW TINGED SPUTUM VIA TRACHEAL STOMA PT KONRAD TX WELL
--- NOTE | 2018-12-20 03:24 | NUR ---
EYES CLOSED RESPIRATIONS WITH EASE AND UNLABORED.
[2018-12-20 04:00] VITALS: BP 149/77
[2018-12-20 08:28] VITALS: BP 168/82
--- NOTE | 2018-12-20 13:01 | NUR ---
NUTRITION F/U PT PO INTAKE REMAINS POOR. INDICATES SHE DOESN'T HAVE MUCH APPETITE. WILL CONTINUE TO PROVIDE DIET, HONOR FOOD PREFERENCES. RD FOLLOWING
--- NOTE | 2018-12-20 18:36 | NUR ---
CONTINUE SUPERINTENDENT CONSTRUCTION PLAN OF CARE.
--- NOTE | 2018-12-20 20:00 | NUR ---
ASSESSMENT PER FLOWSHEET. IV PATENT LEFT UPPER ARM MIDLINE SALINE LOCKED. O2 PER TRACH COLLAR AT 15 LITERS.
[2018-12-20 20:48] VITALS: BP 174/66
--- NOTE | 2018-12-20 21:30 | NUR ---
MEDS GIVEN PER MAR.
--- NOTE | 2018-12-21 00:46 | NUR ---
C/O GENERALIZED PAIN NORCO TAB ONE PO GIVEN FOR PAIN CONTROL. UP TO BSC VOIDS WELL.
--- NOTE | 2018-12-21 01:00 | NUR ---
NPO FOR BRONCH IN AM PER DR. CROWDER.
[2018-12-21 01:08] VITALS: BP 194/87
[2018-12-21 04:30] LABS: CARBON DIOXIDE 35.6 mmol/L (21.0-32.0); CHLORIDE - SERUM 104 mmol/L (98-107); GLUCOSE 123 mg/dL (74-106); SODIUM 145 mmol/L (136-145)
[2018-12-21 04:34] LABS: CALC OSMOLALITY 291 mosm/kg (275-300); CREATININE - SERUM 0.5 mg/dL (0.6-1.3); UREA NITROGEN 17 mg/dL (7-18); eGFR NON AFRICAN AMERICAN > 90 mL/min (90-120)
--- NOTE | 2018-12-21 04:45 | NUR ---
AWAKE SITTING ON SIDE OF BED REMAINS NPO.
--- NOTE | 2018-12-21 06:45 | NUR ---
REMAINS NPO MEDS PER JAN.
--- NOTE | 2018-12-21 08:00 | NUR ---
PATIENT RESTING IN BED, NPO FOR PROCEDURE TODAY WITH DR CROWDER
[2018-12-21 08:16] LABS: BASOPHILS 0.1 % (0-2); EOSINOPHILS 0 % (0-7); HEMATOCRIT 36.4 % (36.0-48.0); HEMOGLOBIN 10.4 g/dL (12-16); IMMATURE GRANULOCYTES 0.2 % (0-5); LYMPHOCYTES 2.3 % (15-50); MCH 26.4 pg (26.0-34.0); MCHC 28.6 g/dL (31.0-37.0); MCV 92.4 fL (80.0-100.0); MEAN PLATELET VOLUME 12.5 fL (7.4-10.4); MONOCYTES 2.7 % (2-11); NEUTROPHILS 94.7 % (40-80); RBC 3.94 10x6/uL (4.00-5.40); WBC 12.8 10x3/uL (4.8-10.8)
[2018-12-21 08:30] VITALS: BP 160/59
[2018-12-21 08:36] LABS: PLATELET COUNT 212 10x3/uL (130-400)
[2018-12-21 13:02] VITALS: BP 178/93
[2018-12-21 18:25] VITALS: BP 192/66
--- NOTE | 2018-12-21 20:00 | NUR ---
ASSESSMENT PER FLOWSHEET. IV PATENT LEFT UPPER ARM MIDLINE WITH NS AT KVO RATE. O2 15 LITERS PER TRACH COLLAR. SITTING UP ON SIDE OF BED SR UP X2 CALL LIGHT WITHIN REACH. UP TO BEDSIDE COMMODE VOIDS WELL. PT IN DROPLET ISOLATION.
--- NOTE | 2018-12-21 22:00 | NUR ---
MEDS GIVEN PER MAR.
--- NOTE | 2018-12-21 23:51 | NUR ---
C/O GENERALIZED DISCOMFORT. NORCO TAB ONE PO GIVEN FOR PAIN CONTROL.
--- NOTE | 2018-12-22 01:25 | NUR ---
PATIENT PULLED OUT MIDLINE CATHETER PATIENT WAS LAYING ON TUBING AND MOVING ABOUT IN BED CAUSING IV TO COME OUT. RESITED IV TO LEFT WRIST #24G X3 ATTEMPTS. RESUMED IV FLUIDS AND ANTIBIOTIC WAS GIVEN.
[2018-12-22 01:37] VITALS: BP 168/72
--- NOTE | 2018-12-22 04:59 | NUR ---
EYS CLOSED RESPIRATIONS WITH EASE AND UNLABORED.
[2018-12-22 08:50] VITALS: BP 189/92
[2018-12-22 11:31] LABS: BASOPHILS 0.1 % (0-2); EOSINOPHILS 0 % (0-7); HEMATOCRIT 35.9 % (36.0-48.0); HEMOGLOBIN 10.6 g/dL (12-16); IMMATURE GRANULOCYTES 0.2 % (0-5); LYMPHOCYTES 1.7 % (15-50); MCH 26.6 pg (26.0-34.0); MCHC 29.5 g/dL (31.0-37.0); MEAN PLATELET VOLUME 11.9 fL (7.4-10.4); MONOCYTES 4.2 % (2-11); NEUTROPHILS 93.8 % (40-80); RBC 3.98 10x6/uL (4.00-5.40); RDW 14.2 % (11.5-14.5); WBC 14.6 10x3/uL (4.8-10.8)
[2018-12-22 11:32] LABS: MCV 90.2 fL (80.0-100.0); PLATELET COUNT 288 10x3/uL (130-400)
[2018-12-22 11:43] LABS: CALC OSMOLALITY 283 mosm/kg (275-300); CALCIUM 8.9 mg/dL (8.5-10.1); CARBON DIOXIDE 36.3 mmol/L (21.0-32.0); CHLORIDE - SERUM 99 mmol/L (98-107); GLUCOSE 147 mg/dL (74-106); POTASSIUM - SERUM 3.9 mmol/L (3.5-5.1); SODIUM 140 mmol/L (136-145); UREA NITROGEN 19 mg/dL (7-18); eGFR NON AFRICAN AMERICAN 77 mL/min (90-120)
[2018-12-22 11:46] LABS: CREATININE - SERUM 0.8 mg/dL (0.6-1.3)
[2018-12-22 12:27] VITALS: BP 164/72
--- NOTE | 2018-12-22 15:07 | NUR ---
UNABLE TO FLUSH IV TO LEFT WRIST, ATTEMPTED X4 STICKS BY TWO NURSES AND UNABLE TO START IV. NOTIFIED VASCULAR ACCESS AND LEFT VOICEMAIL TO POSSIBLY HAVE THEM START IV
--- NOTE | 2018-12-22 15:39 | MORECARE ---
CASE MANAGEMENT DISCHARGE SUMMARY PATIENT: CELY ANN UNIT: [id number] ADM DATE: 12/09/18 AGE: 63 : 55 SEX: F ROOM/BED: D.2220 AUTHOR: AYLA,DOC PHYSICIAN: REFERRING PHYSICIAN: JUAN PABLO MONTANO MD DATE OF SERVICE: 12/22/18 Discharge Plan Patient Name: CELY ANN Facility: [facility]:[place] : 1955 Planned Disposition: Long-Term Facility Anticipated Discharge Date: 12/12/18 Discharge Date: Expected LOS: 3 Initial Reviewer: [email or web address] Initial Review Date: 12/09/2018 Generated: 12/22/18 4:38 pm Comments DCP- Discharge Planning Updated by [id number]: Chantel Tanner on 12/11/18 6:[address] PATIENT WITH SOME RESP DIFFICULTY. NURSE AT THE BEDSIDE. CM CONSULT ORDERED12/09/18. PATIENT WAS ASSESSED BY ER FIELD CONSULTANT. PLAN IS TO RETURN TO THE [facility]. SHE STATED IF CM HAD ANY QUESTIONS TO CONTACT MARITZA OBRIEN. DCP- Discharge Planning Updated by [id number]: Irene Zhang on 12/09/18 12:[address] Patient Name: CELY ANN Admission Status: ER Accout number: [id number] Admission Date: 12-09-2018 : 1955 Admission Diagnosis: Attending: JUAN PABLO MONTANO Current LOS: 1 Anticipated DC Date: 12-12-2018 Planned Disposition: Long-Term Facility Primary Insurance: MEDICARE A & B Discharge Planning Comments: CM met with patient to complete initial dc planning assessment. CM educated patient on the CM role and verbal consent given by patient to complete assessment. Patient lives at [facility]. At discharge patient plans to return to The [facility] and feels this is a safe discharge. Patient denied known discharge needs at this time. CM will continue to follow and will assist as needed with dc plans/needs. Helmet Coverer: Irene Zhang RN, [facility] DCPIA - Discharge Planning Initial Assessment Updated by [email or web address]: Irene Zhang on 12/09/18 1:18 pm * Is the patient Alert and Oriented? Yes * How many steps to enter\exit or inside your home? None * PCP [facility] * Pharmacy [facility] * Preadmission Environment Long-Term Facility * Facility Name [facility] * ADLs Partial Dependent * Partial ADLs (Assistance needed) Bathing Medication Management * Equipment Oxygen * Other Equipment trach * List name and contact numbers for known caregivers / representatives who currently or will assist patient after discharge: Raegan Obrien - [employer] - [phone] * Verbal permission to speak to the caregivers and representatives has been obtained from the patient. Yes * Community resources currently utilized None * Additional services required to return to the preadmission environment? No * Can the patient safely return to the preadmission environment? Yes * Has this patient been hospitalized within the prior 30 days at any hospital? No External Providers External Provider: [facility] Next Contact Date: Service Request Date: Service Type: Resolution: Reviewer: Comments: Last DP export: 12/11/18 6:10 p Patient Name: CELY ANN Page [phone] at 1539 All edits/amendments must be made on the electronic document DICTATION DATE: 12/22/181537 MOSAIC WORKER: DOMINIC 12/22/181537 RPT#: [id number] DC DATE: STATUS: ADM IN [facility] [address] [place] [address] END OF REPORT
[2018-12-22] MEDS ORDERED: VIBRAMYCIN 100100 MG PO (15:51)
--- NOTE | 2018-12-22 17:28 | NUR ---
PATIENT DISCHARGE ON HOLD FOR [address] CROWDER. LEAVE IV OUT FOR NOW AND PATIENT STARTED ON LEVAQUIN PO
[2018-12-22 22:07] LABS: ACID FAST SMEAR Negative (()); AFB SPECIMEN PROCESSING Concentration (())
[2018-12-23 05:35] VITALS: BP 107/57
--- NOTE | 2018-12-23 05:54 | NUR ---
PT REFUSED LABS TO BE DRAWN THIS AM. NO OTHER NEEDS. WILL CONTINUE TO MONITOR.
[2018-12-23 08:25] VITALS: BP 109/76
[2018-12-23 12:05] VITALS: BP 129/76
[2018-12-23 13:18] LABS: FUNGUS STAIN Final report (())
[2018-12-23 16:00] VITALS: BP 166/92
[2018-12-23 20:00] VITALS: BP 221/93
--- NOTE | 2018-12-23 21:27 | NUR ---
PT C/O PAIN 08/31. GAVE NORCO-10 FOR PAIN. ASSESSMENT COMPLETE PER FLOW-SHEET. NO OTHER NEEDS. DROPLET ISOLATION PRECAUTIONS OBSERVED.
[2018-12-24] VITALS: BP 124/74
[2018-12-24 03:00] VITALS: BP 115/56
[2018-12-24 09:40] LABS: BASOPHILS 0.1 % (0-2); EOSINOPHILS 0 % (0-7); HEMOGLOBIN 11.2 g/dL (12-16); IMMATURE GRANULOCYTES 0.4 % (0-5); LYMPHOCYTES 4.7 % (15-50); MCH 26.5 pg (26.0-34.0); MCHC 29.5 g/dL (31.0-37.0); MEAN PLATELET VOLUME 12.2 fL (7.4-10.4); MONOCYTES 5.1 % (2-11); NEUTROPHILS 89.7 % (40-80); PLATELET COUNT 314 10x3/uL (130-400); RBC 4.22 10x6/uL (4.00-5.40); RDW 14.3 % (11.5-14.5)
[2018-12-24 10:01] LABS: CARBON DIOXIDE 32.1 mmol/L (21.0-32.0); CHLORIDE - SERUM 102 mmol/L (98-107); CREATININE - SERUM 0.8 mg/dL (0.6-1.3); GLUCOSE 138 mg/dL (74-106); SODIUM 142 mmol/L (136-145); eGFR NON AFRICAN AMERICAN 77 mL/min (90-120)
[2018-12-24 10:02] LABS: CALC OSMOLALITY 292 mosm/kg (275-300); POTASSIUM - SERUM 4.5 mmol/L (3.5-5.1); UREA NITROGEN 34 mg/dL (7-18)
[2018-12-24 11:03] VITALS: BP 90/31
--- NOTE | 2018-12-24 18:15 | NUR ---
PT RESTING IN BED WITH EYES OPEN. RESPIRATIONS ARE EVEN AND UNLABORED. PT IS IN DROPLET PRECAUTIONS. PRECAUTIONS HAVE BEEN FOLLOWED. PT WITH TRACH COLLAR AND O2 @ 40%. PT DENIES PRESENCE OF PAIN AND N/V AT THIS TIME. BED IS IN THE LOWEST POSITION. CALL LIGHT AND BEDSIDE TABLE ARE WITHIN REACH.
[2018-12-24 18:31] VITALS: BP 134/58
--- NOTE | 2018-12-24 19:01 | NUR ---
SUCTIONED APPROX 3CC YELLOW SPUTUM VIA TRACHEAL STOMA KONRAD WELL
[2018-12-24 19:56] VITALS: BP 183/100
--- NOTE | 2018-12-24 20:20 | NUR ---
PT C/O PAIN 08/31. GAVE NORCO-10 PO. GAVE SCHEDULED MEDS. PT HAD "ACCIDENT" AND WET BED. CHANGED GOWN AND BEDDING. ASSESSMENT COMPLETE PER FLOW-SHEET. NO OTHER NEEDS. WILL CONTINUE TO MONITOR.
--- NOTE | 2018-12-24 23:15 | NUR ---
SUCTIONED PT NO SECRETIONS NOTED
[2018-12-25] VITALS: BP 110/49
[2018-12-25 03:00] VITALS: BP 120/63
[2018-12-25 07:06] LABS: BASOPHILS 0 % (0-2); EOSINOPHILS 0 % (0-7); HEMATOCRIT 35.9 % (36.0-48.0); HEMOGLOBIN 10.5 g/dL (12-16); IMMATURE GRANULOCYTES 0.8 % (0-5); LYMPHOCYTES 6.3 % (15-50); MCH 26.5 pg (26.0-34.0); MCHC 29.2 g/dL (31.0-37.0); MCV 90.7 fL (80.0-100.0); NEUTROPHILS 86.9 % (40-80); PLATELET COUNT 312 10x3/uL (130-400); RBC 3.96 10x6/uL (4.00-5.40); RDW 14.5 % (11.5-14.5); WBC 13.2 10x3/uL (4.8-10.8)
[2018-12-25 07:18] LABS: CALC OSMOLALITY 288 mosm/kg (275-300); CALCIUM 8.8 mg/dL (8.5-10.1); CARBON DIOXIDE 35.5 mmol/L (21.0-32.0); CHLORIDE - SERUM 102 mmol/L (98-107); CREATININE - SERUM 0.7 mg/dL (0.6-1.3); GLUCOSE 105 mg/dL (74-106); POTASSIUM - SERUM 4.8 mmol/L (3.5-5.1); SODIUM 142 mmol/L (136-145); UREA NITROGEN 30 mg/dL (7-18); eGFR NON AFRICAN AMERICAN 90 mL/min (90-120)
[2018-12-25 09:10] VITALS: BP 151/67
[2018-12-25 13:02] VITALS: BP 186/75
[2018-12-25 20:00] VITALS: BP 145/63
--- NOTE | 2018-12-25 21:22 | NUR ---
PT C/O PAIN 08/31. GAVE NORCO-10 PO. GAVE SCHEDULED MEDS. DROPLET ISOLATION PRECAUTIONS OBSERVED. ASSESSMENT COMPLETE PER FLOW-SHEET. TRACH COLLAR IN PLACE WITH 40% OXYGEN @ 15L. NO OTHER NEEDS. WILL CONTINUE TO MONITOR.
[2018-12-26] VITALS: BP 136/57
[2018-12-26 03:00] VITALS: BP 129/48
--- NOTE | 2018-12-26 04:59 | NUR ---
RT UNABLE TO GET AM BLOOD GAS. PT REFUSES TO TRY AGAIN.
[2018-12-26 08:52] VITALS: BP 169/71
--- NOTE | 2018-12-26 09:45 | NUR ---
PT SEEN FOR ASSESSMENT. REMAINS NPO FOR [facility]ONCH THIS AM. PRODUCTIVE COUGH WITH PHELGM NOTED. REMAINS IN DROPLET ISOLATION. HAS TRACH COLLAR IN PLACE. CALL LIGHT IN REACH
--- NOTE | 2018-12-26 11:57 | NUR ---
1113-RETURNED FROM [facility]. NO MEDS GIVEN DURING PROCEDURE. VS STABLE. FOR DISCHARGE LATER TODAY
[2018-12-26 13:40] VITALS: BP 116/51
[2018-12-26 16:00] VITALS: BP 114/57
--- NOTE | 2018-12-26 16:54 | MORECARE ---
CASE MANAGEMENT DISCHARGE SUMMARY PATIENT: CELY ANN UNIT: [id number] ADM DATE: 12/09/18 AGE: 63 : 55 SEX: F ROOM/BED: D.2220 AUTHOR: CATE AGUILA PHYSICIAN: REFERRING PHYSICIAN: JUAN PABLO MONTANO MD DATE OF SERVICE: 12/26/18 Discharge Plan Patient Name: CELY ANN Facility: [facility]:[place] : 1955 Planned Disposition: Retirement Facility Anticipated Discharge Date: 12/12/18 Discharge Date: Expected LOS: 3 Initial Reviewer: [email or web address] Initial Review Date: 12/09/2018 Generated: 12/26/18 5:54 pm Comments DCP- Discharge Planning Updated by [email or web address]: Mary Bennett on 12/26/18 3:[address] Kwadwo came and assessed patient per her request. States he will keep her here tonight and discharge tomorrow. IMM delivered, explained, signed, copy placed in MR. Keith informed her she could have her nurse call Medicare if she disagrees with her discharge tomorrow. CM will continue to follow and assist with discharge planning/needs. DCP- Discharge Planning Updated by [id number]: Chantel Tanner on 12/11/18 6:[address] PATIENT WITH SOME RESP DIFFICULTY. NURSE AT THE BEDSIDE. CM CONSULT ORDERED12/09/18. PATIENT WAS ASSESSED BY ER AIRPORT REPRESENTATIVE. PLAN IS TO RETURN TO THE [facility]. SHE STATED IF CM HAD ANY QUESTIONS TO CONTACT MARITZA OBRIEN. DCP- Discharge Planning Updated by [email or web address]: Irene Zhang on 12/09/18 12:[address] Patient Name: CELY ANN Admission Status: ER Accout number: [id number] Admission Date: 12-09-2018 : 1955 Admission Diagnosis: Attending: JUAN PABLO MONTANO Current LOS: 1 Anticipated DC Date: 12-12-2018 Planned Disposition: Retirement Facility Primary Insurance: MEDICARE A & B Discharge Planning Comments: CM met with patient to complete initial dc planning assessment. CM educated patient on the CM role and verbal consent given by patient to complete assessment. Patient lives at [facility]. At discharge patient plans to return to [facility] and feels this is a safe discharge. Patient denied known discharge needs at this time. CM will continue to follow and will assist as needed with dc plans/needs. Health Outcomes Liaison: Irene Zhang RN, [facility] DCPIA - Discharge Planning Initial Assessment Updated by [email or web address]: Irene Zhang on 12/09/18 1:18 pm * Is the patient Alert and Oriented? Yes * How many steps to enter\exit or inside your home? None * PCP [facility] * Pharmacy [facility] * Preadmission Environment Retirement Facility * Facility Name [facility] * ADLs Partial Dependent * Partial ADLs (Assistance needed) Bathing Medication Management * Equipment Oxygen * Other Equipment trach * List name and contact numbers for known caregivers / representatives who currently or will assist patient after discharge: Raegan Leighsusan [facility] - [phone] * Verbal permission to speak to the caregivers and representatives has been obtained from the patient. Yes * Community resources currently utilized None * Additional services required to return to the preadmission environment? No * Can the patient safely return to the preadmission environment? Yes * Has this patient been hospitalized within the prior 30 days at any hospital? No Coverage Notice Reviewer: [id number] Yarely Bennett Notice Issued Date-Time: 12/26/2018 16:41 Notice Type: IM Discharge Notice Notice Delivered To: Patient Relationship to Patient: Self Test Kitchen Home Economist Name: Delivery Method: HAND - Hand Delivered Laxmi Days: Prior Verbal Notification: Recipient Understood Notice: Yes Recipient Signature: Yes Med Rec Note Co-signed by Attending: Coverage Notice Comment: Last DP export: 12/22/18 2:39 p Patient Name: CELY ANN Page 35440 at 1654 All edits/amendments must be made on the electronic document DICTATION DATE: 12/26/181653 ENERGY PROJECT MANAGER: DOMINIC 12/26/181653 RPT#: [id number] DC DATE: STATUS: ADM IN [facility] [address] [place] [address] END OF REPORT
[2018-12-26 21:13] VITALS: BP 100/76
[2018-12-27 00:01] VITALS: BP 142/80
[2018-12-27 08:30] VITALS: BP 155/106
[2018-12-27 12:30] VITALS: BP 124/64
--- NOTE | 2018-12-27 12:49 | MORECARE ---
CASE MANAGEMENT DISCHARGE SUMMARY PATIENT: CELY ANN UNIT: [id number] ADM DATE: 12/09/18 AGE: 63 : 55 SEX: F ROOM/BED: D.2220 AUTHOR: CATE AGUILA PHYSICIAN: REFERRING PHYSICIAN: JUAN PABLO MONTANO MD DATE OF SERVICE: 12/27/18 Discharge Plan Patient Name: CELY ANN Facility: [facility]:[place] : 1955 Planned Disposition: Residential Facility Anticipated Discharge Date: 12/12/18 Discharge Date: Expected LOS: 3 Initial Reviewer: [email or web address] Initial Review Date: 12/09/2018 Generated: 12/27/18 1:49 pm Comments DCP- Discharge Planning Updated by [email or web address]: Mary Bennett on 12/26/18 3:[address] Kwadwo came and assessed patient per her request. States he will keep her here tonight and discharge tomorrow. IMM delivered, explained, signed, copy placed in MR. Keith informed her she could have her nurse call Medicare if she disagrees with her discharge tomorrow. CM will continue to follow and assist with discharge planning/needs. DCP- Discharge Planning Updated by [id number]: Chantel Tanner on 12/11/18 6:[address] PATIENT WITH SOME RESP DIFFICULTY. NURSE AT THE BEDSIDE. CM CONSULT ORDERED12/09/18. PATIENT WAS ASSESSED BY ER CENTRALIZED TRAFFIC CONTROL OPERATOR. PLAN IS TO RETURN TO THE [facility]. SHE STATED IF CM HAD ANY QUESTIONS TO CONTACT MARITZA OBRIEN. DCP- Discharge Planning Updated by [id number]: Irene Zhang on 12/09/18 12:[address] Patient Name: CELY ANN Admission Status: ER Accout number: [id number] Admission Date: 12-09-2018 : 1955 Admission Diagnosis: Attending: JUAN PABLO MONTANO Current LOS: 1 Anticipated DC Date: 12-12-2018 Planned Disposition: Residential Facility Primary Insurance: MEDICARE A & B Discharge Planning Comments: CM met with patient to complete initial dc planning assessment. CM educated patient on the CM role and verbal consent given by patient to complete assessment. Patient lives at [facility]. At discharge patient plans to return to The [facility] and feels this is a safe discharge. Patient denied known discharge needs at this time. CM will continue to follow and will assist as needed with dc plans/needs. Project Management Professor: Irene Zhang RN, [facility] DCPIA - Discharge Planning Initial Assessment Updated by [id number]: Irene Zhang on 12/09/18 1:18 pm * Is the patient Alert and Oriented? Yes * How many steps to enter\exit or inside your home? None * PCP [facility] * Pharmacy [facility] * Preadmission Environment Residential Facility * Facility Name [facility] * ADLs Partial Dependent * Partial ADLs (Assistance needed) Bathing Medication Management * Equipment Oxygen * Other Equipment trach * List name and contact numbers for known caregivers / representatives who currently or will assist patient after discharge: Raegan Leighsusan [facility] - [phone] * Verbal permission to speak to the caregivers and representatives has been obtained from the patient. Yes * Community resources currently utilized None * Additional services required to return to the preadmission environment? No * Can the patient safely return to the preadmission environment? Yes * Has this patient been hospitalized within the prior 30 days at any hospital? No External Providers External Provider: [facility] Next Contact Date: Service Request Date: Service Type: Resolution: Reviewer: Comments: Coverage Notice Reviewer: [id number] - Mary Bennett Notice Issued Date-Time: 12/26/2018 16:41 Notice Type: IM Discharge Notice Notice Delivered To: Patient Relationship to Patient: Self Waste Disposal Leakage Tester Name: Delivery Method: HAND - Hand Delivered Laxmi Days: Prior Verbal Notification: Recipient Understood Notice: Yes Recipient Signature: Yes Med Rec Note Co-signed by Attending: Coverage Notice Comment: Last DP export: 12/26/18 3:54 pm Patient Name: CELY ANN Page [id number] at 1249 All edits/amendments must be made on the electronic document DICTATION DATE: 12/27/181247 CLAY PROCESSING LABOURER: DOMINIC 12/27/181247 RPT#: [id number] DC DATE: STATUS: ADM IN [facility] [address] [place] [address] END OF REPORT
--- NOTE | 2018-12-27 12:56 | MORECARE ---
CASE MANAGEMENT DISCHARGE SUMMARY PATIENT: CELY ANN UNIT: [id number] ADM DATE: 12/09/18 AGE: 63 : 55 SEX: F ROOM/BED: D.2220 AUTHOR: AYLA,DOC PHYSICIAN: REFERRING PHYSICIAN: JUAN PABLO MONTANO MD DATE OF SERVICE: 12/27/18 Discharge Plan Patient Name: CELY ANN Facility: [facility]:[place] : 1955 Planned Disposition: Detention Facility Anticipated Discharge Date: 12/12/18 Discharge Date: Expected LOS: 3 Initial Reviewer: [email or web address] Initial Review Date: 12/09/2018 Generated: 12/27/18 1:55 pm Comments DCP- Discharge Planning Updated by [id number]: Jennifer Chu on 12/27/18 11:[address] Patient is discharging back to [facility] they will pick her up at 1300 she will be going to a LONG-TERM BED. CM will continue to follow and assist with DC planning as needed DCP- Discharge Planning Updated by [email or web address]: Mary Donald on 12/26/18 3:[address] Kwadwo came and assessed patient per her request. States he will keep her here tonight and discharge tomorrow. IMM delivered, explained, signed, copy placed in MR. Keith informed her she could have her nurse call Medicare if she disagrees with her discharge tomorrow. CM will continue to follow and assist with discharge planning/needs. DCP- Discharge Planning Updated by [email or web address]: Chantel Tanner on 12/11/18 6:[address] PATIENT WITH SOME RESP DIFFICULTY. NURSE AT THE BEDSIDE. CM CONSULT ORDERED12/09/18. PATIENT WAS ASSESSED BY ER WATCH CRYSTAL CUTTER. PLAN IS TO RETURN TO THE [facility]. SHE STATED IF CM HAD ANY QUESTIONS TO CONTACT MARITZA OBRIEN. DCP- Discharge Planning Updated by [id number]: Irene Zhang on 12/09/18 12:[address] Patient Name: CELY ANN Admission Status: ER Accout number: [id number] Admission Date: 12-09-2018 : 1955 Admission Diagnosis: Attending: JUAN PABLO MONTANO Current LOS: 1 Anticipated DC Date: 12-12-2018 Planned Disposition: Detention Facility Primary Insurance: MEDICARE A & B Discharge Planning Comments: CM met with patient to complete initial dc planning assessment. CM educated patient on the CM role and verbal consent given by patient to complete assessment. Patient lives at [facility]. At discharge patient plans to return to [facility] and feels this is a safe discharge. Patient denied known discharge needs at this time. CM will continue to follow and will assist as needed with dc plans/needs. Shale Planer Operator Helper: Irene Zhang RN, [facility] DCPIA - Discharge Planning Initial Assessment Updated by [email or web address]: Irene Zhang on 12/09/18 1:18 pm * Is the patient Alert and Oriented? Yes * How many steps to enter\exit or inside your home? None * PCP [facility] * Pharmacy [facility] * Preadmission Environment Detention Facility * Facility Name [facility] * ADLs Partial Dependent * Partial ADLs (Assistance needed) Bathing Medication Management * Equipment Oxygen * Other Equipment trach * List name and contact numbers for known caregivers / representatives who currently or will assist patient after discharge: Raegan Obrien [facility] - [phone] * Verbal permission to speak to the caregivers and representatives has been obtained from the patient. Yes * Community resources currently utilized None * Additional services required to return to the preadmission environment? No * Can the patient safely return to the preadmission environment? Yes * Has this patient been hospitalized within the prior 30 days at any hospital? No Coverage Notice Reviewer: [email or web address] Yarely Bennett Notice Issued Date-Time: 12/26/2018 16:41 Notice Type: IM Discharge Notice Notice Delivered To: Patient Relationship to Patient: Self Funnel Coater Name: Delivery Method: HAND - Hand Delivered Laxmi Days: Prior Verbal Notification: Recipient Understood Notice: Yes Recipient Signature: Yes Med Rec Note Co-signed by Attending: Coverage Notice Comment: Last DP export: 12/27/18 11:49 am Patient Name: CELY ANN Page [id number] at 1256 All edits/amendments must be made on the electronic document DICTATION DATE: 12/27/18 1256 KEYPUNCHER: DOMINIC 12/27/18 1257 RPT#: [id number] DC DATE: STATUS: ADM IN [facility] [address] [place] [address] END OF REPORT
--- NOTE | 2018-12-28 10:47 | MORECARE ---
CASE MANAGEMENT DISCHARGE SUMMARY PATIENT: CELY ANN UNIT: [id number] ADM DATE: 12/09/18 AGE: 63 : 55 SEX: F ROOM/BED: D.2220 AUTHOR: AYLA,DOC PHYSICIAN: REFERRING PHYSICIAN: JUAN PABLO MONTANO MD DATE OF SERVICE: 12/28/18 Discharge Plan Patient Name: CELY ANN Facility: [facility]:[place] : 1955 Planned Disposition: Senior Living Facility Anticipated Discharge Date: 12/12/18 Discharge Date: 12/27/2018 Expected LOS: 3 Initial Reviewer: [email or web address] Initial Review Date: 12/09/2018 Generated: 12/28/18 11:47 am Comments DCP- Discharge Planning Updated by [email or web address]: Jennifer Chu on 12/27/18 11:[address] Patient is discharging back to the [facility] they will pick her up at 1300 she will be going to a SHELTER BED. CM will continue to follow and assist with DC planning as needed DCP- Discharge Planning Updated by [id number]: Mary Bennett on 12/26/18 3:[address] Kwadwo came and assessed patient per her request. States he will keep her here tonight and discharge tomorrow. IMM delivered, explained, signed, copy placed in MR. Keith informed her she could have her nurse call Medicare if she disagrees with her discharge tomorrow. CM will continue to follow and assist with discharge planning/needs. DCP- Discharge Planning Updated by [id number]: Chantel Tanner on 12/11/18 6:[address] PATIENT WITH SOME RESP DIFFICULTY. NURSE AT THE BEDSIDE. CM CONSULT ORDERED12/09/18. PATIENT WAS ASSESSED BY ER CUSTOMER EXPERIENCE ANALYST. PLAN IS TO RETURN TO THE [facility]. SHE STATED IF CM HAD ANY QUESTIONS TO CONTACT MARITZA OBRIEN. DCP- Discharge Planning Updated by [email or web address]: Irene Zhang on 12/09/18 12:[address] Patient Name: CELY ANN Admission Status: ER Accout number: [id number] Admission Date: 12-09-2018 : 1955 Admission Diagnosis: Attending: JUAN PABLO MONTANO Current LOS: 1 Anticipated DC Date: 12-12-2018 Planned Disposition: Senior Living Facility Primary Insurance: MEDICARE A & B Discharge Planning Comments: CM met with patient to complete initial dc planning assessment. CM educated patient on the CM role and verbal consent given by patient to complete assessment. Patient lives at [facility]. At discharge patient plans to return to [facility] and feels this is a safe discharge. Patient denied known discharge needs at this time. CM will continue to follow and will assist as needed with dc plans/needs. Furnace Cooler: Irene Zhang RN, [facility] DCPIA - Discharge Planning Initial Assessment Updated by [email or web address]: Irene Zhang on 12/09/18 1:18 pm * Is the patient Alert and Oriented? Yes * How many steps to enter\exit or inside your home? None * PCP [facility] * Pharmacy [facility] * Preadmission Environment Senior Living Facility * Facility Name [facility] * ADLs Partial Dependent * Partial ADLs (Assistance needed) Bathing Medication Management * Equipment Oxygen * Other Equipment trach * List name and contact numbers for known caregivers / representatives who currently or will assist patient after discharge: Raegan Obrien [facility] - [phone] * Verbal permission to speak to the caregivers and representatives has been obtained from the patient. Yes * Community resources currently utilized None * Additional services required to return to the preadmission environment? No * Can the patient safely return to the preadmission environment? Yes * Has this patient been hospitalized within the prior 30 days at any hospital? No Coverage Notice Reviewer: [id number] Yarely Bennett Notice Issued Date-Time: 12/26/2018 16:41 Notice Type: IM Discharge Notice Notice Delivered To: Patient Relationship to Patient: Self Leather Scrubber Name: Delivery Method: HAND - Hand Delivered Laxmi Days: Prior Verbal Notification: Recipient Understood Notice: Yes Recipient Signature: Yes Med Rec Note Co-signed by Attending: Coverage Notice Comment: Last DP export: 12/27/18 11:55 am Patient Name: CELY ANN Page [id number] at 1047 All edits/amendments must be made on the electronic document DICTATION DATE: 12/28/18 1047 FLAT GRINDER OPERATOR: DOMINIC 12/28/18 1047 RPT#: [id number] DC DATE:12/27/18 STATUS: DIS IN [facility] [address] [place] [address] END OF REPORT
[2018-12-28 13:18] LABS: FUNGUS CULTURE RESULT 1 Candida albicans (())
[2019-01-18 07:30] LABS: FUNGUS MYCOLOGY CULTURE Final report (())
== END 2018-12-27 13:08 | DRG 177 ==
LOC: D.ER 10:16 → D.EDHOLD 11:39 → D.MS 11:39
PROVIDERS: Emergency Medicine; Family Medicine; Internal Medicine Pulmonary Disease; ADMIT Legal Medicine
PROC: 0BD38ZX Extraction of Right Main Bronchus, Via Natural or Artificial Opening Endoscopic, Diagnostic (ICD-10-PCS; 2018-12-21)
PROC: 0BD78ZX Extraction of Left Main Bronchus, Via Natural or Artificial Opening Endoscopic, Diagnostic (ICD-10-PCS; principal; 2018-12-21 11:02)
DX: J15.212 Pneumonia due to Methicillin resistant Staphylococcus aureus (principal); J96.21 Acute and chronic respiratory failure with hypoxia; J44.0 Chronic obstructive pulmonary disease with (acute) lower respiratory infection; J44.1 Chronic obstructive pulmonary disease with (acute) exacerbation; T17.590A Other foreign object in bronchus causing asphyxiation, initial encounter; R84.5 Abnormal microbiological findings in specimens from respiratory organs and thorax; I11.0 Hypertensive heart disease with heart failure; I50.9 Heart failure, unspecified; Z93.0 Tracheostomy status; D64.9 Anemia, unspecified; R53.81 Other malaise

== ENCOUNTER 2018-12-29 13:51 | Emergency (ER) | payer MEDICARE ==
[~2018-12-29] VITALS: Ht 162.6 cm; Wt 54.5 kg
[~2018-12-29 13:51] MED LIST changes: +VIBRAMYCIN 100100 MG PO
[2018-12-29 13:53] VITALS: Ht 162.6 cm; Wt 54.5 kg
[2018-12-29] MEDS ORDERED: FUROSEMIDE10 MG/M1 IV (14:00)
[2018-12-29] MEDS ORDERED: FUROSEMIDE10 MG/M1 (14:00)
[2018-12-29] MEDS ORDERED: HYDROCODON-ACE1 EA10 PO (14:01)
[2018-12-29 15:17] LABS: BASOPHILS 0.2 % (0-2); EOSINOPHILS 1.1 % (0-7); HEMATOCRIT 34.5 % (36.0-48.0); HEMOGLOBIN 9.9 g/dL (12-16); IMMATURE GRANULOCYTES 1.2 % (0-5); LYMPHOCYTES 12.3 % (15-50); MCH 26.4 pg (26.0-34.0); MCHC 28.7 g/dL (31.0-37.0); MEAN PLATELET VOLUME 12.6 fL (7.4-10.4); MONOCYTES 4.4 % (2-11); NEUTROPHILS 80.8 % (40-80); RBC 3.75 10x6/uL (4.00-5.40); RDW 15.7 % (11.5-14.5); WBC 11.6 10x3/uL (4.8-10.8)
[2018-12-29 15:19] LABS: PLATELET COUNT 182 10x3/uL (130-400)
[2018-12-29 15:30] LABS: ALBUMIN 2.4 g/dL (3.4-5.0); ANION GAP 10.3 mmol/L (8-16); BILIRUBIN - TOTAL 0.23 mg/dL (0.2-1.3); CALCIUM 8.1 mg/dL (8.5-10.1); CARBON DIOXIDE 34.5 mmol/L (21.0-32.0); CREATININE - SERUM 1.1 mg/dL (0.6-1.3); POTASSIUM - SERUM 4.8 mmol/L (3.5-5.1); PROTEIN - SERUM 5.3 g/dL (6.4-8.2)
[2018-12-29 15:35] LABS: TROPONIN-I 0.024 ng/mL (0.000-0.060)
[2018-12-29 16:35] VITALS: BP 120/71
== END 2018-12-29 16:36 | disposition home or self-care (01) ==
LOC: D.ER 13:51
PROVIDERS: Emergency Medicine
DX: R41.82 Altered mental status, unspecified (principal); J44.9 Chronic obstructive pulmonary disease, unspecified; Z87.09 Personal history of other diseases of the respiratory system; D64.9 Anemia, unspecified

== ENCOUNTER 2019-01-06 00:39 | Emergency (ER) | payer MEDICARE ==
[~2019-01-06] VITALS: Ht 162.6 cm; Wt 54.5 kg
[~2019-01-06 00:39] MED LIST changes: +FUROSEMIDE10 MG/M1; +FUROSEMIDE10 MG/M1 IV; +HYDROCODON-ACE1 EA10 PO
[2019-01-06 00:43] VITALS: Ht 162.6 cm; Wt 54.5 kg
[2019-01-06 01:18] LABS: BASOPHILS 0.1 % (0-2); HEMATOCRIT 33.9 % (36.0-48.0); HEMOGLOBIN 9.8 g/dL (12-16); IMMATURE GRANULOCYTES 0.4 % (0-5); LYMPHOCYTES 23.9 % (15-50); MCH 25.9 pg (26.0-34.0); MCHC 28.9 g/dL (31.0-37.0); MCV 89.7 fL (80.0-100.0); MEAN PLATELET VOLUME 11.4 fL (7.4-10.4); NEUTROPHILS 68.6 % (40-80); RBC 3.78 10x6/uL (4.00-5.40); RDW 15.2 % (11.5-14.5); WBC 6.8 10x3/uL (4.8-10.8)
[2019-01-06 01:28] LABS: PLATELET COUNT 269 10x3/uL (130-400)
[2019-01-06 01:34] LABS: APTT 23.4 SECONDS (22.8-39.4); INR 0.96 (0.85-1.17); PROTIME 12.3 SECONDS (11.6-15.0)
[2019-01-06 01:36] LABS: D-DIMER-QUANTITATIVE 1.13 ug/mLFEU (0.20-0.54)
[2019-01-06 01:37] LABS: ALBUMIN 2.7 g/dL (3.4-5.0); ALKALINE PHOSPHATASE 76 U/L (46-116); ALT (SGPT) 17 U/L (10-68); BILIRUBIN - TOTAL 0.19 mg/dL (0.2-1.3); CALC OSMOLALITY 288 mosm/kg (275-300); CALCIUM 8.3 mg/dL (8.5-10.1); CARBON DIOXIDE 35.9 mmol/L (21.0-32.0); CHLORIDE - SERUM 106 mmol/L (98-107); CREATININE - SERUM 0.7 mg/dL (0.6-1.3); GLUCOSE 84 mg/dL (74-106); SODIUM 144 mmol/L (136-145); UREA NITROGEN 20 mg/dL (7-18); eGFR NON AFRICAN AMERICAN 90 mL/min (90-120)
[2019-01-06] MEDS ORDERED: CLEOCIN HCL300 MG PO (04:05)
[2019-01-06 05:20] VITALS: BP 153/70
== END 2019-01-06 05:20 | disposition home or self-care (01) ==
LOC: D.ER 00:39
PROVIDERS: Family Medicine
DX: L03.116 Cellulitis of left lower limb (principal); I10 Essential (primary) hypertension; J44.9 Chronic obstructive pulmonary disease, unspecified

== ENCOUNTER 2019-01-21 16:50 | Emergency (ER) | payer MEDICARE ==
[~2019-01-21] VITALS: Ht 162.6 cm; Wt 59.1 kg
[~2019-01-21 16:50] MED LIST changes: +ASCORBIC ACID500 MG PO; +CLEOCIN HCL300 MG PO; -ESTER-C 500 MG1 TAB PO; -MUCINEX600 MG PO; +Mucinex PO; -TRAZODONE HCL50 MG PO; +TRAZODONE PO; +ZANAFLEX2 M1 PO; -ZANAFLEX4 MG PO
[2019-01-21 17:02] VITALS: BP 130/75; Ht 162.6 cm; Wt 59.1 kg
[2019-01-21 18:04] LABS: BASOPHILS 0.3 % (0-2); EOSINOPHILS 0.7 % (0-7); HEMATOCRIT 38.5 % (36.0-48.0); IMMATURE GRANULOCYTES 0.6 % (0-5); LYMPHOCYTES 6.6 % (15-50); MCH 25.8 pg (26.0-34.0); MCHC 28.6 g/dL (31.0-37.0); MCV 90.2 fL (80.0-100.0); MEAN PLATELET VOLUME 12.5 fL (7.4-10.4); MONOCYTES 6.7 % (2-11); NEUTROPHILS 85.1 % (40-80); RBC 4.27 10x6/uL (4.00-5.40); RDW 15.3 % (11.5-14.5); WBC 10.8 10x3/uL (4.8-10.8)
[2019-01-21 18:14] LABS: PLATELET COUNT 195 10x3/uL (130-400)
[2019-01-21 18:22] LABS: ALBUMIN 3.6 g/dL (3.4-5.0); ALKALINE PHOSPHATASE 102 U/L (46-116); ALT (SGPT) 40 U/L (10-68); BILIRUBIN - TOTAL 0.37 mg/dL (0.2-1.3); CALC OSMOLALITY 292 mosm/kg (275-300); CARBON DIOXIDE 37.3 mmol/L (21.0-32.0); CHLORIDE - SERUM 103 mmol/L (98-107); CREATININE - SERUM 0.7 mg/dL (0.6-1.3); GLUCOSE 88 mg/dL (74-106); PROTEIN - SERUM 6.8 g/dL (6.4-8.2); SODIUM 146 mmol/L (136-145); UREA NITROGEN 22 mg/dL (7-18); eGFR NON AFRICAN AMERICAN 90 mL/min (90-120)
[2019-01-21 18:35] LABS: CKMB 3.1 U/L (0.0-3.6); CREATINE KINASE 329 UL (21-215); PRO BNP 225 pg/mL (0-125); TROPONIN-I < 0.017 ng/mL (0.000-0.060)
== END 2019-01-21 20:40 ==
LOC: D.ER 16:50
PROVIDERS: Family Medicine
DX: R60.0 Localized edema (principal)

== ENCOUNTER 2019-01-22 13:30 | Inpatient (IN) | payer MEDICARE ==
[~2019-01-22] VITALS: Ht 162.6 cm; Wt 53.7 kg
[2019-01-22] VITALS (7 sets, daily range): BP systolic 157–193; BP diastolic 83–94; BMI 20.6
--- NOTE | 2019-01-22 14:16 | NUR ---
POC GLUCOSE 57
--- NOTE | 2019-01-22 14:24 | NUR ---
PATIENT GIVEN OJ AND SANDWICH TRAY
--- NOTE | 2019-01-22 15:29 | NUR ---
POC GULCOSE 134
[2019-01-22 15:36] LABS: BASOPHILS 0.4 % (0-2); EOSINOPHILS 1.3 % (0-7); HEMATOCRIT 38.1 % (36.0-48.0); HEMOGLOBIN 10.9 g/dL (12-16); IMMATURE GRANULOCYTES 0.5 % (0-5); LYMPHOCYTES 13.5 % (15-50); MCH 25.7 pg (26.0-34.0); MCHC 28.6 g/dL (31.0-37.0); MCV 89.9 fL (80.0-100.0); MEAN PLATELET VOLUME 12.5 fL (7.4-10.4); MONOCYTES 11.4 % (2-11); NEUTROPHILS 72.9 % (40-80); PLATELET COUNT 206 10x3/uL (130-400); RBC 4.24 10x6/uL (4.00-5.40); RDW 15.2 % (11.5-14.5); WBC 9.4 10x3/uL (4.8-10.8)
[2019-01-22 15:43] LABS: ALBUMIN 3.3 g/dL (3.4-5.0); ALKALINE PHOSPHATASE 85 U/L (46-116); ALT (SGPT) 36 U/L (10-68); BILIRUBIN - TOTAL 0.34 mg/dL (0.2-1.3); CALC OSMOLALITY 294 mosm/kg (275-300); CARBON DIOXIDE 35.9 mmol/L (21.0-32.0); CHLORIDE - SERUM 102 mmol/L (98-107); CREATININE - SERUM 0.7 mg/dL (0.6-1.3); GLUCOSE 92 mg/dL (74-106); POTASSIUM - SERUM 4.3 mmol/L (3.5-5.1); PROTEIN - SERUM 6.8 g/dL (6.4-8.2); SODIUM 145 mmol/L (136-145); eGFR NON AFRICAN AMERICAN 90 mL/min (90-120)
[2019-01-22 15:45] LABS: UREA NITROGEN 28 mg/dL (7-18)
[2019-01-22 15:52] LABS: PRO BNP 289 pg/mL (0-125); TROPONIN-I < 0.017 ng/mL (0.000-0.060)
--- NOTE | 2019-01-22 16:23 | NUR ---
PATIENT SITTING UP IN THE BED BEND OVER, SHE IS AWAKE AND ALERT. RESPIRATIONS ARE MILDLY LABORED. SHE IS COUGHING UP PHLEM FROM HER TRACH AND WIPPING IT ON A TOWEL. PHLEM IS LIGHT YELLOW. SHE IS ALSO BLOWING HER NOSE ON A TOWEL, WHICH IS CLEAR. PATIENT UPDATED ON PLAN OF CARE.
[2019-01-22 18:37] LABS: CREATINE KINASE 352 UL (21-215)
[2019-01-22 18:49] LABS: CKMB 4.2 U/L (0.0-3.6)
--- NOTE | 2019-01-22 19:00 | NUR ---
TO CT WITH PATIENT SHE WAS UNABLE TO LYE FLAT FOR THE TEST. EDP NOTIFIED.
[2019-01-22 19:59] LABS: APPEARANCE CLEAR (CLEAR); COLOR YELLOW (YELLOW)
[2019-01-22 20:00] LABS: BILIRUBIN NEGATIVE (NEGATIVE); GLUCOSE NEGATIVE (NEGATIVE); KETONE LARGE mg/dL (NEGATIVE); NITRITE NEGATIVE (NEGATIVE); PROTEIN 1+ mg/dL (NEGATIVE); UROBILINOGEN NORMAL (NORMAL)
[2019-01-22 20:03] LABS: BACTERIA MODERATE /hpf (NONE SEEN); EPITHELIAL CELLS 0-5 /hpf (0-5); RED CELLS - URINE 0-5 /hpf (0-5); WHITE CELLS - URINE 0-5 /hpf (0-5)
[2019-01-22 20:04] LABS: HYALINE CAST 0-5 /lpf (NONE SEEN)
--- NOTE | 2019-01-22 20:15 | NUR ---
PT SLEEPING UPRIGHT IN BED. NO S/S OF ACUTE DISTRESS NOTED AT THIS TIME.
--- NOTE | 2019-01-22 21:47 | NUR ---
FSBS 69 AT THIS TIME.
--- NOTE | 2019-01-22 22:17 | NUR ---
PT ARRIVED TO FLOOR BY BED, OXYGEN AT 6 LITERS BY TRACH. PT DOES NOT MAKE VERBAL RESPONSES BUT DOES NOD AND SHAKE HEAD. REPORT TAKEN FROM ROMINA CHONG RN. NO S/S OF DISTRESS NOTED. CALL LIGHT IN REACH. WILL CTM.
--- NOTE | 2019-01-23 02:17 | NUR ---
VETERINARY TECHNOLOGIST ASSESSMENT HAS BEEN COMPLETED.
[2019-01-23 03:45] VITALS: BP 195/89
[2019-01-23 05:01] LABS: BASOPHILS 0.2 % (0-2); EOSINOPHILS 0.9 % (0-7); HEMATOCRIT 40.1 % (36.0-48.0); HEMOGLOBIN 11.5 g/dL (12-16); IMMATURE GRANULOCYTES 0.6 % (0-5); LYMPHOCYTES 12.9 % (15-50); MCHC 28.7 g/dL (31.0-37.0); MCV 90.5 fL (80.0-100.0); MEAN PLATELET VOLUME 12.1 fL (7.4-10.4); MONOCYTES 8.1 % (2-11); NEUTROPHILS 77.3 % (40-80); PLATELET COUNT 225 10x3/uL (130-400); RBC 4.43 10x6/uL (4.00-5.40); RDW 14.8 % (11.5-14.5); WBC 8.4 10x3/uL (4.8-10.8)
[2019-01-23 05:39] LABS: CALC OSMOLALITY 294 mosm/kg (275-300); CALCIUM 9.2 mg/dL (8.5-10.1); CARBON DIOXIDE 31.8 mmol/L (21.0-32.0); CHLORIDE - SERUM 102 mmol/L (98-107); CREATININE - SERUM 0.6 mg/dL (0.6-1.3); POTASSIUM - SERUM 4.2 mmol/L (3.5-5.1); SODIUM 148 mmol/L (136-145); UREA NITROGEN 20 mg/dL (7-18); eGFR NON AFRICAN AMERICAN > 90 mL/min (90-120)
[2019-01-23 05:40] LABS: GLUCOSE 64 mg/dL (74-106)
--- NOTE | 2019-01-23 06:24 | NUR ---
ADMINISTERED ORDERED CATAPRES 0.1 MG TABLET FOR BLOOD PRESSURE OF 195/89
[2019-01-23 08:03] VITALS: BP 135/75
[2019-01-23 12:01] VITALS: BP 190/88
[2019-01-23 12:49] VITALS: BMI 18.5
[2019-01-23 15:40] VITALS: BP 180/76
--- NOTE | 2019-01-23 19:48 | NUR ---
RESUMED CARE OF PT, LYING IN BED WITH EYES CLOSED RESPIRATIONS EVEN AND UNLABORED. 90 SR ON TELEMETRY. TRACH COLLAR ON. CALL LIGHT IN REACH. SEE NURSE ASSESSMENT.
[2019-01-23 20:00] VITALS: BP 99/54
[2019-01-24] VITALS: BP 147/68
[2019-01-24 04:00] VITALS: BP 152/67
[2019-01-24] MEDS ORDERED: PREDNISONE10 MG PO (09:45)
[2019-01-24] MEDS ORDERED: TUMS 500MG PO (09:45)
[2019-01-24] MEDS ORDERED: ACETAMINOPHEN325 MG PO (09:46)
[2019-01-24] MEDS ORDERED: LYRICA75 MG PO (09:47)
[2019-01-24] MEDS ORDERED: COLACE100 MG PO (09:47)
[2019-01-24] MEDS ORDERED: FUROSEMIDE20 MG PO (09:47)
[2019-01-24] MEDS ORDERED: ASPERCREME 5 OZ5 OZ TOPICAL (09:49)
[2019-01-24] MEDS ORDERED: MORPHINE SULFAT30 M4 PO (09:50)
[2019-01-24] MEDS ORDERED: MORPHINE IMMEDI15 MG PO (09:51)
[2019-01-24] MEDS ORDERED: MORPHINE 20 MG/ML PO (09:53)
--- NOTE | 2019-01-24 09:53 | MORECARE ---
CASE MANAGEMENT DISCHARGE SUMMARY PATIENT: CELY ANN UNIT: [id number] ADM DATE: 01/22/19 AGE: 63 : 55 SEX: F ROOM/BED: D.4936 AUTHOR: CATE AGUILA PHYSICIAN: REFERRING PHYSICIAN: JUAN PABLO MONTANO MD DATE OF SERVICE: 01/24/19 Discharge Plan Patient Name: CELY ANN Facility: [facility]:[place] : 1955 Planned Disposition: Nursing Facility PANKAJ Cert Anticipated Discharge Date: 01/24/19 Discharge Date: Expected LOS: 2 Initial Reviewer: [email or web address] Initial Review Date: 01/24/2019 Generated: 01/24/19 10:53 am DCPIA - Discharge Planning Initial Assessment Updated by [email or web address]: Jake Loredo on 01/24/19 9:47 am * Is the patient Alert and Oriented? Yes * How many steps to enter\exit or inside your home? NONE * PCP DR. MONTANO * Pharmacy [facility] * Preadmission [facility] * Facility Name [facility] * ADLs Partial Dependent * Partial ADLs (Assistance needed) Ambulation Bathing Medication Management Transfers * Equipment Other * Other Equipment ALL MEDICAL EQUIPMENT PROVIDED BY FACILITY * List name and contact numbers for known caregivers / representatives who currently or will assist patient after discharge: HEATHER BYERSCAROL, FRIEND, * Verbal permission to speak to the caregivers and representatives has been obtained from the patient. N/A * Community resources currently utilized None * Please name any agencies selected above. NONE * Additional services required to return to the preadmission environment? No * Can the patient safely return to the preadmission environment? Yes * Has this patient been hospitalized within the prior 30 days at any hospital? No External [facility]iders [facility] Contact Date: 01/24/2019 Service Request Date: Service Type: Resolution: Reviewer: Comments: Coverage Notice Reviewer: [id number] - Jake Loredo Notice Issued Date-Time: 01/24/2019 9:10 Notice Type: Medicare Outpatient Observation Notice Notice Delivered To: Patient Relationship to Patient: Sourcing Coordinator Name: Delivery Method: HAND - Hand Delivered Laxmi Days: Prior Verbal Notification: Recipient Understood Notice: Yes Recipient Signature: Yes Med Rec Note Co-signed by Attending: Coverage Notice Comment: Reviewer: [id number] - Jake Loredo Notice Issued Date-Time: 01/24/2019 9:10 Notice Type: Patient Choice Letter Notice Delivered To: Patient Relationship to Patient: Sourcing Coordinator Name: Delivery Method: HAND - Hand Delivered Laxmi Days: Prior Verbal Notification: Recipient Understood Notice: Yes Recipient Signature: Yes Med Rec Note Co-signed by Attending: Coverage Notice Comment: [facility] Patient Name: CELY ANN Page [id number] at 0953 All edits/amendments must be made on the electronic document DICTATION DATE: 01/24/19951 LITURGICAL MUSIC DIRECTOR: DOMINIC 01/24/19951 RPT#: [id number] DC DATE: STATUS: ADM IN [facility] [address] [place] [address] END OF REPORT
[2019-01-24 09:57] VITALS: BP 186/93
--- NOTE | 2019-01-24 10:03 | MORECARE ---
CASE MANAGEMENT DISCHARGE SUMMARY PATIENT: CELY ANN UNIT: [id number] ADM DATE: 01/22/19 AGE: 63 : 55 SEX: F ROOM/BED: D.1186 AUTHOR: AYLA,DOC PHYSICIAN: REFERRING PHYSICIAN: JUAN PABLO MONTANO MD DATE OF SERVICE: 01/24/19 Discharge Plan Patient Name: CELY ANN Facility: [facility]:[place] : 1955 Planned Disposition: Nursing Facility PANKAJ Cert Anticipated Discharge Date: 01/24/19 Discharge Date: Expected LOS: 2 Initial Reviewer: [email or web address] Initial Review Date: 01/24/2019 Generated: 01/24/19 11:03 am Comments DCP- Discharge Planning Updated by [email or web address]: Jake Loredo on 01/24/19 8:[address] Patient Name: CELY ANN Admission Status: ER Accout number: [id number] Admission Date: 01-22-2019 : 1955 Admission Diagnosis: Attending: JUAN PABLO MONTANO Current LOS: 2 Anticipated DC Date: 01-24-2019 Planned Disposition: Nursing Facility PANKAJ Cert Primary Insurance: MEDICARE A & B PLANNED EXTERNAL PROVIDER: THE [facility]TERM [facility] MEDICAID BED Discharge Planning Comments: CM MET WITH PT IN ROOM TO DISCUSS DISCHARGE PLANNING AND NEEDS. PT COMMUNICATES IN WRITING. PT REPORTS LIVING AT THE [facility], WHERE SHE WILL RETURN AT DISCHARGE. ALL MEDICAL EQUIPMENT PROVIDED BY THE [facility]. CM DISCUSSED AVAILABILITY OF HOME HEALTH, REHAB SERVICES AND MEDICAL EQUIPMENT. PT DENIES DISCHARGE NEEDS, THE [facility] WILL ARRANGE VAN [facility]. MEDICARE OUTPATIENT OBSERVATION NOTICE PROVIDED AND EXPLAINED. [facility] CHOICE LISTING PROVIDED AND DISCUSSED. PT SIGNED CONSENT FOR THE [facility]. CM SPOKE TO TREVA, CLINICAL LIAISON FOR THE [facility] WHO CONFIRMED THAT PT IS IN A VETERINARY PRACTITIONER CARE MEDICAID BED AT THE FACILITY AND WILL RETURN THERE AT DISCHARGE. CM FAXED UPDATE TO THE [facility] VIA TREVA AT [phone]. FOR DISCHARGE, FAX DISCHARGE INFORMATION TO THE [facility], , NURSE REPORT TO BE CALLED TO THE [facility] AT [phone]. PT TO TRANSPORT VIA [facility]. Soloist Dancer: Jake Loredo DCPIA - Discharge Planning Initial Assessment Updated by [email or web address]: Jake Loredo on 01/24/19 9:47 am * Is the patient Alert and Oriented? Yes * How many steps to enter\exit or inside your home? NONE * PCP DR. MONTANO * Pharmacy [facility] * Preadmission Environment [facility] * Facility Name [facility] * ADLs Partial Dependent * Partial ADLs (Assistance needed) Ambulation Bathing Medication Management Transfers * Equipment Other * Other Equipment ALL MEDICAL EQUIPMENT PROVIDED BY FACILITY * List name and contact numbers for known caregivers / representatives who currently or will assist patient after discharge: HEATHER MARTIN, FRIEND, * Verbal permission to speak to the caregivers and representatives has been obtained from the patient. N/A * Community resources currently utilized None * Please name any agencies selected above. NONE * Additional services required to return to the preadmission environment? No * Can the patient safely return to the preadmission environment? Yes * Has this patient been hospitalized within the prior 30 days at any hospital? No Coverage Notice Reviewer: [id number] Yarely Loredo Notice Issued Date-Time: 01/24/2019 9:10 Notice Type: Medicare Outpatient Observation Notice Notice Delivered To: Patient Relationship to Patient: Supervisor Lamp Shades Name: Delivery Method: HAND - Hand Delivered Laxmi Days: Prior Verbal Notification: Recipient Understood Notice: Yes Recipient Signature: Yes Med Rec Note Co-signed by Attending: Coverage Notice Comment: Reviewer: [id number] Yarely Loredo Notice Issued Date-Time: 01/24/2019 9:10 Notice Type: Patient Choice Letter Notice Delivered To: Patient Relationship to Patient: Supervisor Lamp Shades Name: Delivery Method: HAND - Hand Delivered Laxmi Days: Prior Verbal Notification: Recipient Understood Notice: Yes Recipient Signature: Yes Med Rec Note Co-signed by Attending: Coverage Notice Comment: [facility] DP export: 01/24/19 8:53 am Patient Name: CELY ANN Page 04194 at 1003 All edits/amendments must be made on the electronic document DICTATION DATE: 01/24/19 1002 CARE MANAGEMENT ASSISTANT: DM 01/24/19 1002 RPT#: [id number] DC DATE: STATUS: ADM IN [facility] [address] [facility] [place] [address] END OF REPORT
--- NOTE | 2019-01-24 18:43 | NUR ---
PT LAYING IN BED WITH EYES CLOSED, RESPIRATIONS EVEN AND UNLABORED. CALL LIGHT IN REACH.
[2019-01-24 18:48] VITALS: BP 156/86
--- NOTE | 2019-01-24 19:22 | NUR ---
INTRODUCED SELF TO PATIENT, PROVIDED PATIENT FRESH WATER AND RETAPED PINKY FINGER. CALLED RESP EVEN AND UNLABORED, BED IN LOWEST POSITION, CALL LIGHT IN REACH.
[2019-01-24 20:00] VITALS: BP 138/68
--- NOTE | 2019-01-24 21:00 | NUR ---
PATIENT REQUESTING NORCO, ADVISED PATIENT THAT SHE GOT NORCO TWO HOURS AGO AND COULD NOT HAVE IT BUT EVERY 8 HOURS. PATIENT STATED SHE CANNOT STAND UP OR MOVE HER LEGS, DESPITE SITTING HERSELF UP ON THE SIDE OF BED UNASSISTED AND STANDING TO REACH THE BEDSIDE TABLE.
--- NOTE | 2019-01-24 22:00 | NUR ---
PATIENT REQUESTING NORCO AGAIN, STATED THAT SHE ALSO NEEDED HER ATIVAN. REMINDED PATIENT THAT SHE ALREADY HAD HER ATIVAN WITH HER [facility].
--- NOTE | 2019-01-25 01:40 | NUR ---
PATIENT STATES HER ATIVAN AND NORCO IS SCHEDULED FOR 0100, EDUCATED THE PATIENT FOR THE THIRD TIME THAT HER NORCO IS Q8 AND SHE RECEIVED IT AT 1800, COULD NOT HAVE IT AGAIN UNTIL 0200 AND ATIVAN HAD ALREADY BEEN GIVEN WITH [facility].
--- NOTE | 2019-01-25 02:57 | NUR ---
PATIENT CONTINUES TO PUT LIGHT ON AFTER STAFF ENTERS, ASSESSES HER NEEDS AND ASKS IF THERES ANYTHING ELSE SHE NEEDS. SHE CONTINUES TO TELL ANALYTICS LEADER THAT NURSE SAID SHE COULD HAVE ATIVAN AND NORCO AT 0100. GAVE NORCO AND MELATONIN IN PUDDING. PATIENT WROTE PAIN IS A "16" OUT OF 10. WILL REASSESS MEDICATION EFFECTIVENESS.
--- NOTE | 2019-01-25 03:04 | NUR ---
PATIENT RAN NINE TO TWELVE SECONDS OF VTACH OF 186, CHECKED ON PATIENT, ASYMPTOMATIC. WILL PLACE STRIP INTO CHART AND CONTINUE PLAN OF CARE.
[2019-01-25 04:00] VITALS: BP 146/86
[2019-01-25 05:56] LABS: BASOPHILS 0.4 % (0-2); EOSINOPHILS 1.4 % (0-7); HEMATOCRIT 33.6 % (36.0-48.0); HEMOGLOBIN 9.7 g/dL (12-16); IMMATURE GRANULOCYTES 0.5 % (0-5); LYMPHOCYTES 20.5 % (15-50); MCH 25.3 pg (26.0-34.0); MCHC 28.9 g/dL (31.0-37.0); MCV 87.7 fL (80.0-100.0); MEAN PLATELET VOLUME 11.8 fL (7.4-10.4); MONOCYTES 11.9 % (2-11); NEUTROPHILS 65.3 % (40-80); PLATELET COUNT 200 10x3/uL (130-400); RBC 3.83 10x6/uL (4.00-5.40); RDW 15.6 % (11.5-14.5); WBC 5.6 10x3/uL (4.8-10.8)
[2019-01-25 06:33] LABS: CALC OSMOLALITY 289 mosm/kg (275-300); CALCIUM 8.1 mg/dL (8.5-10.1); CARBON DIOXIDE 36.6 mmol/L (21.0-32.0); CHLORIDE - SERUM 106 mmol/L (98-107); CREATININE - SERUM 0.7 mg/dL (0.6-1.3); GLUCOSE 104 mg/dL (74-106); POTASSIUM - SERUM 3.6 mmol/L (3.5-5.1); SODIUM 147 mmol/L (136-145); UREA NITROGEN 6 mg/dL (7-18); eGFR NON AFRICAN AMERICAN 90 mL/min (90-120)
[2019-01-25 09:34] VITALS: BP 134/75
[2019-01-25 10:57] VITALS: Ht 162.6 cm; Wt 53.7 kg
--- NOTE | 2019-01-25 13:16 | NUR ---
I have reviewed this patient and I concur with the Shift Assessment completed by the Licensed Practical Nurse today this shift.
[2019-01-25 17:06] VITALS: BP 138/79
[2019-01-25 20:00] VITALS: BP 101/61
--- NOTE | 2019-01-25 21:23 | NUR ---
HS MEDS GIVEN WITH FRESH ICE WATER. ATIVAN 1 TAB GIVEN FOR S/S AGITATION.
--- NOTE | 2019-01-25 22:17 | NUR ---
ZOFRAN 4 MG TAB GIVEN AT PT REQUEST FOR C/O " STOMACH FEELING FUNNY"
[2019-01-26] VITALS: BP 100/58
--- NOTE | 2019-01-26 02:13 | NUR ---
CALLED TO ROOM, PT C/O STOMACH HURTING, NORCO 1 TAB AND MYLANTA GIVEN FOR C/O STOMACH PAIN. IV TO RIGHT WRIST OUT AND LAYING ON THE FLOOR, TIP INTACT. PT STATED THAT IT JUST CAME OUT. PT REFUSED TO LET IV BE RE SITED AT THIS TIME.
[2019-01-26 04:00] VITALS: BP 112/62
[2019-01-26 08:03] VITALS: BP 129/66
[2019-01-26 08:50] LABS: BASOPHILS 0.4 % (0-2); EOSINOPHILS 2.6 % (0-7); HEMATOCRIT 38.1 % (36.0-48.0); IMMATURE GRANULOCYTES 0.4 % (0-5); LYMPHOCYTES 31.7 % (15-50); MCH 25.9 pg (26.0-34.0); MCHC 28.9 g/dL (31.0-37.0); MCV 89.6 fL (80.0-100.0); MEAN PLATELET VOLUME 13.2 fL (7.4-10.4); MONOCYTES 7.5 % (2-11); NEUTROPHILS 57.4 % (40-80); PLATELET COUNT 195 10x3/uL (130-400); RBC 4.25 10x6/uL (4.00-5.40)
--- NOTE | 2019-01-26 08:51 | NUR ---
[facility] CALLED INQUIRING ABOUT PTS STATUS. PT IS APPARENTLY STILL ON HOSPICE THERE. REVIEWED CHART AND DISCUSSED WITH DAVEY CLARK FOR ONCOLOGY AND PT IS BACK TO BASELINE. WILL CALL PULMONOLGY AND INQUIRE ABOUT DISCHARGE. PT CAN DISCHARGE PER PRIMARY IF OKAY WITH PULMONOLOGY.
[2019-01-26 08:54] LABS: CALCIUM 8.3 mg/dL (8.5-10.1); CARBON DIOXIDE 31.7 mmol/L (21.0-32.0); CHLORIDE - SERUM 105 mmol/L (98-107); CREATININE - SERUM 0.8 mg/dL (0.6-1.3); GLUCOSE 86 mg/dL (74-106); SODIUM 145 mmol/L (136-145); eGFR NON AFRICAN AMERICAN 77 mL/min (90-120)
[2019-01-26 08:55] LABS: CALC OSMOLALITY 288 mosm/kg (275-300); POTASSIUM - SERUM 4.3 mmol/L (3.5-5.1); UREA NITROGEN 16 mg/dL (7-18)
--- NOTE | 2019-01-26 09:40 | NUR ---
SPOKE TO IN PERSON. PT OKAY FOR DISCHARGE BACK TO IN WITH HER PREVIOUS HOSPICE ARRANGEMENTS.
[2019-01-26] MEDS ORDERED: CATAPRES0.1 MG PO (10:08)
--- NOTE | 2019-01-26 12:20 | MORECARE ---
CASE MANAGEMENT DISCHARGE SUMMARY PATIENT: CELY ANN UNIT: [id number] ADM DATE: 01/24/19 AGE: 63 : 55 SEX: F ROOM/BED: D.7036 AUTHOR: AYLA,DOC PHYSICIAN: REFERRING PHYSICIAN: JUAN PABLO MONTANO MD DATE OF SERVICE: 01/26/19 Discharge Plan Patient Name: CELY ANN Facility: [facility]:[place] : 1955 Planned Disposition: Nursing Facility PANKAJ Cert Anticipated Discharge Date: 01/26/19 Discharge Date: Expected LOS: 2 Initial Reviewer: [id number] Initial Review Date: 01/24/2019 Generated: 01/26/19 1:20 pm Comments DCP- Discharge Planning Updated by [email or web address]: Jake Loredo on 01/24/19 8:[address] Patient Name: CELY ANN Admission Status: ER Accout number: [id number] Admission Date: 01-22-2019 : 1955 Admission Diagnosis: Attending: JUAN PABLO MONTANO Current LOS: 2 Anticipated DC Date: 01-24-2019 Planned Disposition: Nursing Facility PANKAJ Cert Primary Insurance: MEDICARE A & B PLANNED EXTERNAL PROVIDER: THE [facility] MACHINED PARTS METAL SPRAYER CARE MEDICAID BED Discharge Planning Comments: CM MET WITH PT IN ROOM TO DISCUSS DISCHARGE PLANNING AND NEEDS. PT COMMUNICATES IN WRITING. PT REPORTS LIVING AT THE [facility], WHERE SHE WILL RETURN AT DISCHARGE. ALL MEDICAL EQUIPMENT PROVIDED BY THE [facility]. CM DISCUSSED AVAILABILITY OF HOME HEALTH, REHAB SERVICES AND MEDICAL EQUIPMENT. PT DENIES DISCHARGE NEEDS, THE [facility] WILL ARRANGE VAN TRASPORT. MEDICARE OUTPATIENT OBSERVATION NOTICE PROVIDED AND EXPLAINED. MCC CHOICE LISTING PROVIDED AND DISCUSSED. PT SIGNED CONSENT FOR THE [facility]. CM SPOKE TO TREVA, CLINICAL LIAISON FOR THE [facility] WHO CONFIRMED THAT PT IS IN A NURSING HOME CARE MEDICAID BED AT THE FACILITY AND WILL RETURN THERE AT DISCHARGE. CM FAXED UPDATE TO THE [facility] VIA TREVA AT [phone]. FOR DISCHARGE, FAX DISCHARGE INFORMATION TO THE [facility], , NURSE REPORT TO BE CALLED TO THE [facility] AT [phone]. PT TO TRANSPORT VIA [facility]. Outside Installer Apprentice: Jake Loredo DCPIA - Discharge Planning Initial Assessment Updated by [email or web address]: Jake Loredo on 01/24/19 9:47 am * Is the patient Alert and Oriented? Yes * How many steps to enter\exit or inside your home? NONE * PCP DR. MONTANO * [facility] * Preadmission Environment Long-Term Correction * Facility Name [facility] * ADLs Partial Dependent * Partial ADLs (Assistance needed) Ambulation Bathing Medication Management Transfers * Equipment Other * Other Equipment ALL MEDICAL EQUIPMENT PROVIDED BY FACILITY * List name and contact numbers for known caregivers / representatives who currently or will assist patient after discharge: HEATHER MARTIN, FRIEND, * Verbal permission to speak to the caregivers and representatives has been obtained from the patient. N/A * Community resources currently utilized None * Please name any agencies selected above. NONE * Additional services required to return to the preadmission environment? No * Can the patient safely return to the preadmission environment? Yes * Has this patient been hospitalized within the prior 30 days at any hospital? No Coverage Notice Reviewer: [id number] Yarely Loredo Notice Issued Date-Time: 01/24/2019 9:10 Notice Type: Medicare Outpatient Observation Notice Notice Delivered To: Patient Relationship to Patient: Tooth Cutter Contact Wheel Name: Delivery Method: HAND - Hand Delivered Laxmi Days: Prior Verbal Notification: Recipient Understood Notice: Yes Recipient Signature: Yes Med Rec Note Co-signed by Attending: Coverage Notice Comment: Reviewer: [id number] Yarely Loredo Notice Issued Date-Time: 01/24/2019 9:10 Notice Type: Patient Choice Letter Notice Delivered To: Patient Relationship to Patient: Tooth Cutter Contact Wheel Name: Delivery Method: HAND - Hand Delivered Laxmi Days: Prior Verbal Notification: Recipient Understood Notice: Yes Recipient Signature: Yes Med Rec Note Co-signed by Attending: Coverage Notice Comment: THE [facility] DP export: 01/24/19 9:03 am Patient Name: CELY ANN Page [id number] at 1220 All edits/amendments must be made on the electronic document DICTATION DATE: 01/26/19 1220 GRIEVANCE MANAGER: DOMINIC 01/26/19 1220 RPT#: [id number] DC DATE: STATUS: ADM IN [facility] [address] [place] [address] END OF REPORT
--- NOTE | 2019-01-26 12:30 | MORECARE ---
CASE MANAGEMENT DISCHARGE SUMMARY PATIENT: CELY ANN UNIT: [id number] ADM DATE: 01/24/19 AGE: 63 : 55 SEX: F ROOM/BED: D.6909 AUTHOR: AYLA,DOC PHYSICIAN: REFERRING PHYSICIAN: JUAN PABLO MONTANO MD DATE OF SERVICE: 01/26/19 Discharge Plan Patient Name: CELY ANN Facility: [facility]:[place] : 1955 Planned Disposition: Nursing Facility PANKAJ Cert Anticipated Discharge Date: 01/26/19 Discharge Date: Expected LOS: 2 Initial Reviewer: [id number] Initial Review Date: 01/24/2019 Generated: 01/26/19 1:30 pm Comments DCP- Discharge Planning Updated by [id number]: Jake Loredo on 01/24/19 8:[address] Patient Name: CELY ANN Admission Status: ER Accout number: [id number] Admission Date: 01-22-2019 : 1955 Admission Diagnosis: Attending: JUAN PABLO MONTANO Current LOS: 2 Anticipated DC Date: 01-24-2019 Planned Disposition: Nursing Facility PANKAJ Cert Primary Insurance: MEDICARE A & B PLANNED EXTERNAL PROVIDER: THE [facility] JUNIOR DATABASE ADMINISTRATOR CARE MEDICAID BED Discharge Planning Comments: CM MET WITH PT IN ROOM TO DISCUSS DISCHARGE PLANNING AND NEEDS. PT COMMUNICATES IN WRITING. PT REPORTS LIVING AT THE [facility], WHERE SHE WILL RETURN AT DISCHARGE. ALL MEDICAL EQUIPMENT PROVIDED BY THE [facility]. CM DISCUSSED AVAILABILITY OF HOME HEALTH, REHAB SERVICES AND MEDICAL EQUIPMENT. PT DENIES DISCHARGE NEEDS, THE [facility] WILL ARRANGE VAN TRASPORT. MEDICARE OUTPATIENT OBSERVATION NOTICE PROVIDED AND EXPLAINED. LONG TERM CHOICE LISTING PROVIDED AND DISCUSSED. PT SIGNED CONSENT FOR THE [facility]. CM SPOKE TO TREVA, CLINICAL LIAISON FOR THE [facility] WHO CONFIRMED THAT PT IS IN A FPC CARE MEDICAID BED AT THE FACILITY AND WILL RETURN THERE AT DISCHARGE. CM FAXED UPDATE TO THE [facility] VIA TREVA AT [phone]. FOR DISCHARGE, FAX DISCHARGE INFORMATION TO THE [facility], , NURSE REPORT TO BE CALLED TO THE [facility] AT [phone]. PT TO TRANSPORT VIA [facility]. Dinkey Operator: Jake Loredo DCPIA - Discharge Planning Initial Assessment Updated by DIPTI: Jake Loredo on 01/24/19 9:47 am * Is the patient Alert and Oriented? Yes * How many steps to enter\exit or inside your home? NONE * PCP DR. MONTANO * Pharm[facility] * Preadmission Environment Nursing Home Penitentiary * Facility Name [facility] * ADLs Partial Dependent * Partial ADLs (Assistance needed) Ambulation Bathing Medication Management Transfers * Equipment Other * Other Equipment ALL MEDICAL EQUIPMENT PROVIDED BY FACILITY * List name and contact numbers for known caregivers / representatives who currently or will assist patient after discharge: HEATHER MARTIN, FRIEND, * Verbal permission to speak to the caregivers and representatives has been obtained from the patient. N/A * Community resources currently utilized None * Please name any agencies selected above. NONE * Additional services required to return to the preadmission environment? No * Can the patient safely return to the preadmission environment? Yes * Has this patient been hospitalized within the prior 30 days at any hospital? No External Providers External Provider: [facility] Next Contact Date: 01/26/2019 Service Request Date: Service Type: Resolution: Reviewer: Comments: Coverage Notice Reviewer: [id number] oLredo Notice Issued Date-Time: 01/24/2019 9:10 Notice Type: Medicare Outpatient Observation Notice Notice Delivered To: Patient Relationship to Patient: Air Traffic Control Equipment Repairer Name: Delivery Method: HAND - Hand Delivered Laxmi Days: Prior Verbal Notification: Recipient Understood Notice: Yes Recipient Signature: Yes Med Rec Note Co-signed by Attending: Coverage Notice Comment: Reviewer: [id number] Yarely Loredo Notice Issued Date-Time: 01/24/2019 9:10 Notice Type: Patient Choice Letter Notice Delivered To: Patient Relationship to Patient: Air Traffic Control Equipment Repairer Name: Delivery Method: HAND - Hand Delivered Laxmi Days: Prior Verbal Notification: Recipient Understood Notice: Yes Recipient Signature: Yes Med Rec Note Co-signed by Attending: Coverage Notice Comment: THE [facility] DP export: 01/26/19 11:20 am Patient Name: CARLINROSE CELY Page [id number] at 1230 All edits/amendments must be made on the electronic document DICTATION DATE: 01/26/19 1229 HEAD BONE GRINDER: DOMINIC 01/26/19 1229 RPT#: [id number] DC DATE: STATUS: ADM IN [facility] [address] [place] [address] END OF REPORT
--- NOTE | 2019-01-26 12:45 | MORECARE ---
CASE MANAGEMENT DISCHARGE SUMMARY PATIENT: CELY ANN UNIT: [id number] ADM DATE: 01/24/19 AGE: 63 : 55 SEX: F ROOM/BED: D.0591 AUTHOR: AYLA,DOC PHYSICIAN: REFERRING PHYSICIAN: JUAN PABLO MONTANO MD DATE OF SERVICE: 01/26/19 Discharge Plan Patient Name: CELY ANN Facility: [facility]:[place] : 1955 Planned Disposition: Nursing Facility PANKAJ Cert Anticipated Discharge Date: 01/26/19 Discharge Date: Expected LOS: 2 Initial Reviewer: [id number] Initial Review Date: 01/24/2019 Generated: 01/26/19 1:45 pm Comments DCP- Discharge Planning Updated by [email or web address]: Jake Loredo on 01/26/19 11:[address] Patient Name: CELY ANN Encounter No: [id number] : 1955 Primary Insurance: MEDICARE A & B Anticipated DC Date: 01-26-2019 Planned Disposition: Nursing Facility PANKAJ Cert External Planned Provider: [facility] TERM CARE MEDICAID BED Discharge Planning Comments: CM MET WITH PT IN ROOM TO DISCUSS DISCHARGE PLANNING AND NEEDS. PT CONTINUES TO COMPLAIN THAT SHE IS STILL IN CHRONIC PAIN BUT OTHERWISE FEELS OK. PT IN AGREEMENT WITH PLAN TO DISCHARGE BACK TO THE [facility]. IMPORTANT MESSAGE FROM MEDICARE PROVIDED AND EXPLAINED. PT INFORMED CM THAT SHE IS ON HOSPICE WITH [facility] AND HAS NOT REVOKED HOSPICE CARE. CM SPOKE TO TREVA, CLINICAL LIAISON FOR THE [facility] WHO CONFIRMED THAT PT IS IN A NURSING HOME CARE MEDICAID BED AT THE FACILITY AND WILL SEND VAN TO AIR QUALITY CHEMIST PT TODAY. CM FAXED DISCHARGE INFORMATION TO THE [facility] VIA TREVA AT [phone]. CM CALLED AND NOTIFIED G[facility] OF [facility], . CM FAXED HOSPITAL UPDATE AND DISCHARGE INFORMATION TO [facility] AT [phone]. PT IS ON 40% OXYGEN WITH TRACH COLLAR, EQUIVELENT TO 5 LITERS ON A OXYGEN CONCENTRATOR. NURSE REPORT TO BE CALLED TO THE [facility] AT [phone]. PT TO TRANSPORT VIA [facility]. Line Leader: Jake Loredo DCP- Discharge Planning Updated by [id number]: Jake Loredo on 01/24/19 8:[address] Patient Name: CELY ANN Admission Status: ER Accout number: [id number] Admission Date: 01-22-2019 : 1955 Admission Diagnosis: Attending: JUAN PABLO MONTANO Current LOS: 2 Anticipated DC Date: 01-24-2019 Planned Disposition: Nursing Facility PANKAJ Cert Primary Insurance: MEDICARE A & B PLANNED EXTERNAL PROVIDER: THE [facility] TERM CARE MEDICAID BED Discharge Planning Comments: CM MET WITH PT IN ROOM TO DISCUSS DISCHARGE PLANNING AND NEEDS. PT COMMUNICATES IN WRITING. PT REPORTS LIVING AT THE [facility], WHERE SHE WILL RETURN AT DISCHARGE. ALL MEDICAL EQUIPMENT PROVIDED BY THE [facility]. CM DISCUSSED AVAILABILITY OF HOME HEALTH, REHAB SERVICES AND MEDICAL EQUIPMENT. PT DENIES DISCHARGE NEEDS, THE [facility] WILL ARRANGE VAN TRASPORT. MEDICARE OUTPATIENT OBSERVATION NOTICE PROVIDED AND EXPLAINED. SENIOR CARE CHOICE LISTING PROVIDED AND DISCUSSED. PT SIGNED CONSENT FOR THE [facility]. CM SPOKE TO TREVA, CLINICAL LIAISON FOR THE [facility] WHO CONFIRMED THAT PT IS IN A CLOUD OPERATIONS ENGINEER CARE MEDICAID BED AT THE FACILITY AND WILL RETURN THERE AT DISCHARGE. CM FAXED UPDATE TO THE [facility] VIA [facility] [employer] AT [phone]. FOR DISCHARGE, FAX DISCHARGE INFORMATION TO THE [facility], , NURSE REPORT TO BE CALLED TO THE [facility] AT [phone]. PT TO TRANSPORT VIA [facility]. Line Leader: Jake Loredo DCPIA - Discharge Planning Initial Assessment Updated by [id number]: Jake Loredo on 01/24/19 9:47 am * Is the patient Alert and Oriented? Yes * How many steps to enter\exit or inside your home? NONE * PCP DR. MONTANO * Pharm[facility] * Preadmission Environment Environmental Issues Instructor Mcc * Facility Name [facility] * ADLs Partial Dependent * Partial ADLs (Assistance needed) Ambulation Bathing Medication Management Transfers * Equipment Other * Other Equipment ALL MEDICAL EQUIPMENT PROVIDED BY FACILITY * List name and contact numbers for known caregivers / representatives who currently or will assist patient after discharge: CONSTANTINE BURK, * Verbal permission to speak to the caregivers and representatives has been obtained from the patient. N/A * Community resources currently utilized None * Please name any agencies selected above. NONE * Additional services required to return to the preadmission environment? No * Can the patient safely return to the preadmission environment? Yes * Has this patient been hospitalized within the prior 30 days at any hospital? No Coverage Notice Reviewer: [id number] Loredo Notice Issued Date-Time: 01/24/2019 9:10 Notice Type: Medicare Outpatient Observation Notice Notice Delivered To: Patient Relationship to Patient: Electronic Development Technician Name: Delivery Method: HAND - Hand Delivered Laxmi Days: Prior Verbal Notification: Recipient Understood Notice: Yes Recipient Signature: Yes Med Rec Note Co-signed by Attending: Coverage Notice Comment: Reviewer: [email or web address] Loredo Notice Issued Date-Time: 01/24/2019 9:10 Notice Type: Patient Choice Letter Notice Delivered To: Patient Relationship to Patient: Electronic Development Technician Name: Delivery Method: HAND - Hand Delivered Laxmi Days: Prior Verbal Notification: Recipient Understood Notice: Yes Recipient Signature: Yes Med Rec Note Co-signed by Attending: Coverage Notice Comment: NABOR WAGNER Reviewer: [id number] Loredo Notice Issued Date-Time: 01/26/2019 10:50 Notice Type: IM Discharge Notice Notice Delivered To: Patient Relationship to Patient: Electronic Development Technician Name: Delivery Method: HAND - Hand Delivered Laxmi Days: Prior Verbal Notification: Recipient Understood Notice: Yes Recipient Signature: Yes Med Rec Note Co-signed by Attending: Coverage Notice Comment: Last DP export: 01/26/19 11:30 am Patient Name: CELY ANN Page [id number] at 1245 All edits/amendments must be made on the electronic document DICTATION DATE: 01/26/19 1244 PACKAGE YARNS DRYING MACHINE OPERATOR: DOMINIC 01/26/19 1244 RPT#: [id number] DC DATE: STATUS: ADM IN [facility] [address] [place] [address] END OF REPORT
--- NOTE | 2019-01-26 12:55 | NUR ---
DISCHARGE PAPERWORK REVIEWED WITH PT, ALL QUESTIONS ANSWERED. TELEMETRY REMOVED AND RETURNED TO HADLEY, TACTICAL INTELLIGENCE OFFICER. ASSISTED PT TO GATHER ALL BELONGINGS. ATTEMPTED TO CALL REPORT TO [facility], METAL CUTTER ANSWERED AND TRANSFERED CALL TO NURSE. NO ANSWER ONCE TRANSFERED. CALLED BACK TO [facility] AND LEFT NOTE WITH METAL CUTTER TO HAVE NURSE CALL ONCE SHE IS READY TO RECIEVE REPORT.
--- NOTE | 2019-01-26 13:00 | NUR ---
[facility] CHETNA ARRIVED TO SHAG TRUCK DRIVER PT, CHETNA LORENZO STATES HE WOULD NOT BE ABLE TO LEAVE WITH PT UNTIL REPORT HAD BEEN CALLED. CHETNA LORENZO CALLED FACILITY AND WAS ABLE TO GET AHOLD OF NURSE AT THE [place]. REPORT GIVEN TO KENNETH. PT LEFT WITH CHETNA LORENZO VIA WHEELCHAIR.
== END 2019-01-26 14:06 | disposition home health service (06) | DRG 811 ==
LOC: D.ER 13:30 → D.EDHOLD 19:16 → OBSVTIME 19:16 → D.M2 20:45
PROVIDERS: Family Medicine; ADMIT Legal Medicine; ATTEND Legal Medicine
DX: D64.9 Anemia, unspecified (principal); G93.41 Metabolic encephalopathy; J96.11 Chronic respiratory failure with hypoxia; E16.2 Hypoglycemia, unspecified; I10 Essential (primary) hypertension; J43.9 Emphysema, unspecified; R41.82 Altered mental status, unspecified

== ENCOUNTER 2019-10-26 10:48 | Inpatient (IN) | payer MEDICARE ==
[~2019-10-26] VITALS: Ht 162.6 cm; Wt 54.9 kg
[~2019-10-26 10:48] MED LIST changes: +ACETAMINOPHEN325 MG PO; +CATAPRES0.1 MG PO; +COLACE100 MG PO; +FUROSEMIDE20 MG PO; +LYRICA75 MG PO; +MORPHINE 20 MG/ML PO; +MORPHINE IMMEDI15 MG PO; +MORPHINE SULFAT30 M4 PO; +TUMS 500MG PO
--- NOTE | 2019-10-26 12:13 | NUR ---
PT ASSISTED WITH USE OF BEDPAN. SOILED CLOTHING CHANGED. PT AWARE THAT SHE IS TO BE NPO AT THIS TIME.
[2019-10-26 12:41] LABS: CALC OSMOLALITY 279 mosm/kg (275-300); CALCIUM 9.2 mg/dL (8.5-10.1); CARBON DIOXIDE 38.2 mmol/L (21.0-32.0); CHLORIDE - SERUM 101 mmol/L (98-107); CREATININE - SERUM 0.5 mg/dL (0.6-1.3); GLUCOSE 114 mg/dL (74-106); SODIUM 140 mmol/L (136-145); UREA NITROGEN 13 mg/dL (7-18); eGFR NON AFRICAN AMERICAN > 90 mL/min (90-120)
[2019-10-26 12:46] LABS: ALBUMIN 3.3 g/dL (3.4-5.0); ALKALINE PHOSPHATASE 136 U/L (46-116); ALT (SGPT) 20 U/L (10-68); BILIRUBIN - TOTAL 0.36 mg/dL (0.2-1.3); PROTEIN - SERUM 7.6 g/dL (6.4-8.2)
[2019-10-26 12:58] LABS: APTT 26.7 SECONDS (22.8-39.4); INR 0.98 (0.85-1.17); PROTIME 12.9 SECONDS (11.6-15.0)
[2019-10-26 13:04] LABS: APPEARANCE CLEAR (CLEAR); BILIRUBIN NEGATIVE (NEGATIVE); COLOR STRAW (YELLOW); GLUCOSE NEGATIVE (NEGATIVE); KETONE NEGATIVE (NEGATIVE); NITRITE NEGATIVE (NEGATIVE); PROTEIN NEGATIVE (NEGATIVE); UROBILINOGEN NORMAL (NORMAL)
--- NOTE | 2019-10-26 13:26 | NUR ---
UNABLE TO ESTABLISH IV ACCESS AT THIS TIME, WILL ADMINISTER ORDERED MEDICATIONS ONCE IV ACCESS IS OBTAINED.
[2019-10-26 13:39] LABS: BASOPHILS 0.2 % (0-2); EOSINOPHILS 1.3 % (0-7); HEMATOCRIT 38.8 % (36.0-48.0); HEMOGLOBIN 11.5 g/dL (12-16); IMMATURE GRANULOCYTES 0.4 % (0-5); LYMPHOCYTES 10.2 % (15-50); MCH 26.6 pg (26.0-34.0); MCHC 29.6 g/dL (31.0-37.0); MCV 89.6 fL (80.0-100.0); MEAN PLATELET VOLUME 11.5 fL (7.4-10.4); MONOCYTES 4.6 % (2-11); NEUTROPHILS 83.3 % (40-80); PLATELET COUNT 214 10x3/uL (130-400); RBC 4.33 10x6/uL (4.00-5.40); RDW 13.8 % (11.5-14.5)
--- NOTE | 2019-10-26 17:20 | MORECARE ---
CASE MANAGEMENT DISCHARGE SUMMARY PATIENT: CELY ANN UNIT: [id number] ADM DATE: 10/26/19 AGE: 64 : 55 SEX: F ROOM/BED: D.2208 AUTHOR: CATE AGUILA PHYSICIAN: REFERRING PHYSICIAN: JUAN PABLO MONTANO MD DATE OF SERVICE: 10/26/19 Discharge Plan Patient Name: CELY ANN Facility: [facility]:[place] : 1955 Planned Disposition: Anticipated Discharge Date: Discharge Date: Expected LOS: Initial Reviewer: [id number] Initial Review Date: 10/26/2019 Generated: 10/26/19 6:20 pm Patient Name: CELY ANN Page [id number] at 1720 All edits/amendments must be made on the electronic document DICTATION DATE: 10/26/191719 ARTS AND HUMANITIES COUNCIL DIRECTOR: DOMINIC 10/26/191719 RPT#: [id number] DC DATE: STATUS: ADM IN [facility] [address] [place] [address] END OF REPORT
[2019-10-26 20:00] VITALS: BP 136/75
[2019-10-26 21:48] VITALS: BP 178/80; BMI 20.8
[2019-10-27] VITALS (11 sets, daily range): BP systolic 116–174; BP diastolic 66–93; Ht 162.6 cm; Wt 54.9 kg
--- NOTE | 2019-10-27 06:55 | NUR ---
PT AWAKE AND RESTING IN BED WITH EYES OPEN. ALERT AND ORIENTATED. NO ACUTE S/S OF DISTRESS. NO C/O AT THIS TIME. PT HAS A TRACH STOMA WITH TRACH COLLAR O2 RUNNING AT 15L. PT HAS A REIS IN PLACE. IV IN RIGHT SHOULDER NORMAL SALINE @75 ML/HR. SMALL RED SPOT ON COCCYX ABOUT THE SIZE OF THE DIME NOTED. PT NPO DUE TO SURGERY. SURGERY TODAY ON THE RIGHT HIP, CONSENTS ARE SIGNED, AND AWAITING PREOP. CALL LIGHT IN PLACE. WILL CONTIUE TO MONITOR.
[2019-10-27 07:10] LABS: ALKALINE PHOSPHATASE 117 U/L (46-116); ALT (SGPT) 18 U/L (10-68); BILIRUBIN - TOTAL 0.47 mg/dL (0.2-1.3); CALC OSMOLALITY 280 mosm/kg (275-300); CALCIUM 8.5 mg/dL (8.5-10.1); CARBON DIOXIDE 32.6 mmol/L (21.0-32.0); CHLORIDE - SERUM 101 mmol/L (98-107); CREATININE - SERUM 0.5 mg/dL (0.6-1.3); GLUCOSE 84 mg/dL (74-106); POTASSIUM - SERUM 3.9 mmol/L (3.5-5.1); SODIUM 141 mmol/L (136-145); UREA NITROGEN 14 mg/dL (7-18); eGFR NON AFRICAN AMERICAN > 90 mL/min (90-120)
[2019-10-27 07:24] LABS: BASOPHILS 0.2 % (0-2); EOSINOPHILS 0.2 % (0-7); HEMATOCRIT 38.1 % (36.0-48.0); HEMOGLOBIN 11.4 g/dL (12-16); IMMATURE GRANULOCYTES 0.2 % (0-5); LYMPHOCYTES 6.1 % (15-50); MCH 26.8 pg (26.0-34.0); MCHC 29.9 g/dL (31.0-37.0); MCV 89.4 fL (80.0-100.0); MEAN PLATELET VOLUME 11.8 fL (7.4-10.4); MONOCYTES 4.7 % (2-11); NEUTROPHILS 88.6 % (40-80); PLATELET COUNT 175 10x3/uL (130-400); RBC 4.26 10x6/uL (4.00-5.40); RDW 13.9 % (11.5-14.5); WBC 10.3 10x3/uL (4.8-10.8)
--- NOTE | 2019-10-27 13:58 | NUR ---
PT WAS TAKEN TO SURGERY. LR WAS SENT WITH HER WITH IV IN R SHOULDER.
--- NOTE | 2019-10-27 17:15 | NUR ---
PTS BP REMAINS HIGH HOWEVER ANESTHESIA AWARE AND WILL HAVE PT TAKE HER PRN DOSE BY MOUTH ON THE FLOOR. UPON ARRIVING TO THE FLOOR PTS BP 150/68 HR 100 BEDSIDE NURSE STATES SHE WILL CTM FOR NEED OF PRN MEDICATION.
--- NOTE | 2019-10-27 18:05 | NUR ---
PT CAME BACK FROM SURGERY. R HIP DRESSING C/D/I. PT C/O OF PAIN AT A 8 ON THE NUMERIC SCALE. NO ACUTE S/S OF DISTRESS. NO OTHER C/O. CALL LIGHT IN PLACE. WILL CONTINUE TO MONITOR.
[2019-10-28] VITALS: BP 125/69
[2019-10-28 04:00] VITALS: BP 144/77
[2019-10-28 05:03] LABS: BASOPHILS 0.1 % (0-2); EOSINOPHILS 1.1 % (0-7); HEMATOCRIT 35.6 % (36.0-48.0); HEMOGLOBIN 10.6 g/dL (12-16); IMMATURE GRANULOCYTES 0.1 % (0-5); LYMPHOCYTES 7.1 % (15-50); MCH 26.5 pg (26.0-34.0); MCHC 29.8 g/dL (31.0-37.0); MEAN PLATELET VOLUME 11.8 fL (7.4-10.4); MONOCYTES 7.3 % (2-11); NEUTROPHILS 84.3 % (40-80); PLATELET COUNT 161 10x3/uL (130-400); RDW 13.8 % (11.5-14.5); WBC 8.5 10x3/uL (4.8-10.8)
[2019-10-28 05:34] LABS: CALC OSMOLALITY 278 mosm/kg (275-300); CALCIUM 8.1 mg/dL (8.5-10.1); CARBON DIOXIDE 34.7 mmol/L (21.0-32.0); CHLORIDE - SERUM 99 mmol/L (98-107); CREATININE - SERUM 0.4 mg/dL (0.6-1.3); DIGOXIN 0.61 ng/mL (0.90-2.00); GLUCOSE 105 mg/dL (74-106); SODIUM 140 mmol/L (136-145); UREA NITROGEN 12 mg/dL (7-18); eGFR NON AFRICAN AMERICAN > 90 mL/min (90-120)
[2019-10-28 05:37] LABS: POTASSIUM - SERUM 3.1 mmol/L (3.5-5.1)
--- NOTE | 2019-10-28 07:52 | NUR ---
PT IS RESTING IN BED WITH EYES CLOSED. NO ACUTE S/S OF DISTRESS. NO C/O AT THIS TIME. TELEMETRY 101 ST. PT HAS A TRACH STOMA AND A TRACH COLLAR ADMINISTERING O2 AT 10L. PT IS POSTOP DAY 1. DRESSING ON R HIP IS C/D/I. IV IN R IJ IS NORMAL SALINE @ 125 ML/HR. IV IS PATNET AND DRESSING IS C/D/I. ANOTHER IV IN L SHOULDER IS SALINE LOCKED. CALL LIGHT IN PLACE. WILL CONTINUE TO MONITOR.
[2019-10-28 08:18] VITALS: BP 117/59
[2019-10-28 13:11] VITALS: BP 122/58
[2019-10-28 17:09] VITALS: BP 108/61
[2019-10-28 20:00] VITALS: BP 116/49
[2019-10-29] VITALS: BP 136/81
[2019-10-29 04:00] VITALS: BP 108/61
[2019-10-29 06:45] LABS: BASOPHILS 0.3 % (0-2); EOSINOPHILS 1.5 % (0-7); HEMATOCRIT 30.8 % (36.0-48.0); HEMOGLOBIN 9.2 g/dL (12-16); IMMATURE GRANULOCYTES 0.4 % (0-5); LYMPHOCYTES 16.6 % (15-50); MCH 26.6 pg (26.0-34.0); MCHC 29.9 g/dL (31.0-37.0); MEAN PLATELET VOLUME 11.6 fL (7.4-10.4); MONOCYTES 9.1 % (2-11); NEUTROPHILS 72.1 % (40-80); PLATELET COUNT 145 10x3/uL (130-400); RBC 3.46 10x6/uL (4.00-5.40); RDW 14.3 % (11.5-14.5); WBC 7.8 10x3/uL (4.8-10.8)
--- NOTE | 2019-10-29 08:27 | NUR ---
AWAKE AND ALERT. ASSISTED WITH BED CHURCH PER STAFF. LARGE AMOUNT OF LIGHT BROWN SEMI FORMED STOOL. UP TO CHIAR AT BEDSIDE PER STAFF, MAX ASSIST OF 2. C/O SOB WITH ACTIVITY. SATS DOWN TO 71. RT NOTIFIED. O2 UP AT THIS TIME. POSITIONED IN CHIAR FOR COMFORT. WILL MONITOR. LUNGS ARE CLEAR BUT DIMINISHED THROUGHOUT, OCCASSIONAL PRODUCTIVE COUGH NOTED. TRACH IS PATENT AND FUNCTIONAL. SKIN IS INTACT WITHOUT REDNESS EXCEPT INCISION TO RIGHT HIP WHICH HAS A DRY INTACT DRESSING IN PLACE AND SMALL REDDENED AREA NOTED TO COCCYX. WILL MONITOR. RIGHT IJ IS PATENT WITHOUT REDNESS AT INSERTION SITE. O2 SATS UP TO 99%. NO FURTHER NEEDS AT THIS TIME.
[2019-10-29 08:43] VITALS: BP 113/62
--- NOTE | 2019-10-29 09:45 | NUR ---
REFUSED BREAKFAST TRAY, STATED SHE DIDN'T DO BREAKFAST. UP IN CHIAR AT BEDSIDE STILL. RIGHT IJ IS NOT FUNCTIONAL. D/C PER ANTONIO BREASHEARS. APPROXIMATELY 7CM OF TUBING PULLED WITHOUT DIFFICULTY. DENIES NEEDS. RT HERE AND DID A DEEP SUCTION ON PATIENT.
--- NOTE | 2019-10-29 10:37 | NUR ---
ASSISTED BACK TO BED MAX X2. POSITIONED FOR COMFORT.
[2019-10-29 12:27] VITALS: BP 147/78
--- NOTE | 2019-10-29 12:30 | NUR ---
LUNCH SERVED IN ROOM ATE WELL. DENIES NEEDS.
--- NOTE | 2019-10-29 15:15 | NUR ---
IV TO RIGHT UPPER ARM IS LEAKING. D/C WITH CATHETER INTACT. ATTEPTS TO RESITE WITHOUT SUCCESS X3. WILL ASK ER TO COME AND TRY.
[2019-10-29 16:57] VITALS: BP 151/79
--- NOTE | 2019-10-29 18:22 | NUR ---
ATE ALMOST HALF OF SUPPER. DENIES NEEDS. NO CHANGES NOTED.
[2019-10-29 20:00] VITALS: BP 117/65
[2019-10-30 04:00] VITALS: BP 154/82
[2019-10-30 07:25] LABS: BASOPHILS 0.1 % (0-2); EOSINOPHILS 1.8 % (0-7); HEMATOCRIT 34.1 % (36.0-48.0); HEMOGLOBIN 10.4 g/dL (12-16); IMMATURE GRANULOCYTES 0.3 % (0-5); LYMPHOCYTES 13.5 % (15-50); MCH 26.9 pg (26.0-34.0); MCHC 30.5 g/dL (31.0-37.0); MCV 88.3 fL (80.0-100.0); MONOCYTES 8.6 % (2-11); NEUTROPHILS 75.7 % (40-80); PLATELET COUNT 164 10x3/uL (130-400); RBC 3.86 10x6/uL (4.00-5.40); RDW 14.3 % (11.5-14.5); WBC 7.9 10x3/uL (4.8-10.8)
[2019-10-30 08:20] VITALS: BP 147/79
[2019-10-30 12:55] VITALS: BP 159/93
--- NOTE | 2019-10-30 15:28 | NUR ---
Nutrition follow-up: Diet: Regular as tolreated PO intake ~50% of meals; pt does not like breakfast Labs reviewed Wt: 121# RDN following.
[2019-10-30 16:36] VITALS: BP 126/80
--- NOTE | 2019-10-30 19:15 | NUR ---
ASSESSMENT COMPLETED RAMA AM.PT IS WITHOUT DISTRESS.HER PAIN IS SEMI CONTROLLED WITH PO PAIN MEDS.DRESSING CHANGED TODAY TO RIGHT HIP ORDERED.PT IS WITHOUT CHANGE.CONT PLAN OF CARE
--- NOTE | 2019-10-30 19:15 | NUR ---
PT RESTING WITH EYES CLOSED. RESPIRATIONS ARE EVEN AND UNLABORED. SHE DENIES PAIN OR NEEDS. BED LOW AND CALL LIGHT WITHIN REACH.
--- NOTE | 2019-10-30 19:19 | NUR ---
ARRIVED ON UNIT VIA BED AT 1200 TODAY FROM PACU. PT POST RIGHT HIP WITH DRESSING CDI AND ICE PACK IN PLACE.PAIN CONTROLLED WITH PO PAIN MEDS ORDERED PER JAN.CONT PLAN OF CARE
[2019-10-30 20:00] VITALS: BP 116/67
[2019-10-31] VITALS: BP 158/56
[2019-10-31 04:00] VITALS: BP 139/88
[2019-10-31 06:24] LABS: BASOPHILS 0.6 % (0-2); EOSINOPHILS 4.3 % (0-7); HEMATOCRIT 32.6 % (36.0-48.0); HEMOGLOBIN 9.8 g/dL (12-16); IMMATURE GRANULOCYTES 0.2 % (0-5); LYMPHOCYTES 27.2 % (15-50); MCH 26.5 pg (26.0-34.0); MCHC 30.1 g/dL (31.0-37.0); MCV 88.1 fL (80.0-100.0); MEAN PLATELET VOLUME 11.8 fL (7.4-10.4); MONOCYTES 7.6 % (2-11); NEUTROPHILS 60.1 % (40-80); RDW 14.1 % (11.5-14.5)
[2019-10-31 06:46] LABS: PLATELET COUNT 200 10x3/uL (130-400); WBC 5.1 10x3/uL (4.8-10.8)
--- NOTE | 2019-10-31 07:30 | NUR ---
REPORT RECIEVED ASSUMED CARE. PATIENT IN BED WITH NO COMPLAINTS OR SIGNS OF DISTRESS. CALL LIGHT WITHIN REACH.
--- NOTE | 2019-10-31 09:00 | NUR ---
PATIENT RECIEVED MEDS. REFUSED MIRALAX AND COLACE, TUMS AND TESSELON PEREL. NO COMPLAINTS AT THIS TIME. ATE SMALL AMOUNT OF BREAKFAST. DRESSING TO HIP NEEDS TO BE REINFORCED. WILL CHANGE DRESSING PER ORDERS. CALL LIGHT WITHIN REACH.
[2019-10-31 09:52] VITALS: BP 155/77
--- NOTE | 2019-10-31 11:15 | MORECARE ---
CASE MANAGEMENT DISCHARGE SUMMARY PATIENT: CELY ANN UNIT: [id number] ADM DATE: 10/26/19 AGE: 64 : 55 SEX: F ROOM/BED: D.2208 AUTHOR: CATE AGUILA PHYSICIAN: REFERRING PHYSICIAN: JUAN PABLO MONTANO MD DATE OF SERVICE: 10/31/19 Discharge Plan Patient Name: CELY ANN Facility: [facility]:[place] : 1955 Planned Disposition: Inpatient Rehab Anticipated Discharge Date: Discharge Date: Expected LOS: Initial Reviewer: [email or web address] Initial Review Date: 10/26/2019 Generated: 10/31/19 12:15 pm DCPIA - Discharge Planning Initial Assessment Updated by [email or web address]: Jennifer Chu on 10/31/19 11:13 am * Is the patient Alert and Oriented? Yes * PCP DUSYT * Pharmacy [facility] * Preadmission Environment Asset Coordinator Retirement * Facility Name [facility] * ADLs Partial Dependent * Partial ADLs (Assistance needed) Bathing Medication Management * Equipment Oxygen Trach Care Supplies * List name and contact numbers for known caregivers / representatives who currently or will assist patient after discharge: SARAH DOWNING [phone] * Verbal permission to speak to the caregivers and representatives has been obtained from the patient. N/A * Community resources currently utilized Other * Please name any agencies selected above. [facility] * Additional services required to return to the preadmission environment? Yes * Can the patient safely return to the preadmission environment? Yes * Has this patient been hospitalized within the prior 30 days at any hospital? No Last DP export: 10/26/19 4:20 p Patient Name: CELY ANN Page [id number] at 1115 All edits/amendments must be made on the electronic document DICTATION DATE: 10/31/191113 NET MENDER: DOMINIC 10/31/191113 RPT#: [id number] DC DATE: STATUS: ADM IN [facility] [address] [place] [address] END OF REPORT
--- NOTE | 2019-10-31 11:21 | MORECARE ---
CASE MANAGEMENT DISCHARGE SUMMARY PATIENT: CELY ANN UNIT: [id number] ADM DATE: 10/26/19 AGE: 64 : 55 SEX: F ROOM/BED: D.2208 AUTHOR: AYLADOC PHYSICIAN: REFERRING PHYSICIAN: JUAN PABLO MONTANO MD DATE OF SERVICE: 10/31/19 Discharge Plan Patient Name: CELY ANN Facility: [facility]:[place] : 1955 Planned Disposition: Inpatient Rehab Anticipated Discharge Date: Discharge Date: Expected LOS: Initial Reviewer: [email or web address] Initial Review Date: 10/26/2019 Generated: 10/31/19 12:21 pm Comments DCP- Discharge Planning Updated by [email or web address]: Jennifer Chu on 10/31/19 10:[address] Patient Name: CELY ANN Admission Status: ER Accout number: [id number] Admission Date: 10-26-2019 : 1955 Admission Diagnosis: Attending: JUAN PABLO MONTANO Current LOS: 5 Anticipated DC Date: Planned Disposition: Inpatient Rehab Primary Insurance: MEDICARE A & B Discharge Planning Comments: CM met with patient to complete initial dc planning assessment. CM educated patient on the CM role and verbal consent given by patient to complete assessment. Patient lives at [facility] in intermediate project manager care with [facility]. At discharge patient would like rehab before she goes back to the [facility] and feels this is a safe discharge. Patient has all the supplies/DME that she needs at the residential. She has a trach. IMM served and explained to patient and NAVID with Inpatient rehab at [facility] has been signed along with [facility]. Patient denied known discharge needs at this time. CM will continue to follow and will assist as needed with dc plans/needs. Olive Brine Tester: Jennifer Chu DCPIA - Discharge Planning Initial Assessment Updated by [email or web address]: Jennifer Chu on 10/31/19 11:13 am * Is the patient Alert and Oriented? Yes * PCP DUSTY * Pharmacy [facility] * Preadmission Environment [facility] * Facility Name [facility] * ADLs Partial Dependent * Partial ADLs (Assistance needed) Bathing Medication Management * Equipment Oxygen Trach Care Supplies * List name and contact numbers for known caregivers / representatives who currently or will assist patient after discharge: SARAH DOWNING [phone] * Verbal permission to speak to the caregivers and representatives has been obtained from the patient. N/A * Community resources currently utilized Other * Please name any agencies selected above. [facility] AT [facility] * Additional services required to return to the preadmission environment? Yes * Can the patient safely return to the preadmission environment? Yes * Has this patient been hospitalized within the prior 30 days at any hospital? No Coverage Notice Reviewer: [id number] Yarely Chu Notice Issued Date-Time: 10/31/2019 9:50 Notice Type: IM Discharge Notice Notice Delivered To: Patient Relationship to Patient: Cellar Supervisor Name: Delivery Method: HAND - Hand Delivered Laxmi Days: Prior Verbal Notification: Recipient Understood Notice: Yes Recipient Signature: Yes Med Rec Note Co-signed by Attending: Coverage Notice Comment: Reviewer: [id number] Chu Notice Issued Date-Time: 10/31/2019 9:50 Notice Type: Patient Choice Letter Notice Delivered To: Patient Relationship to Patient: Cellar Supervisor Name: Delivery Method: HAND - Hand Delivered Laxmi Days: Prior Verbal Notification: Recipient Understood Notice: Yes Recipient Signature: Yes Med Rec Note Co-signed by Attending: Coverage Notice Comment: NAVID [facility] AT [facility] Last DP export: 10/31/19 10:15 Patient Name: CELY ANN Page [phone] at 1121 All edits/amendments must be made on the electronic document DICTATION DATE: 10/31/19 112 INSPECTOR SUBASSEMBLY: DOMINIC 10/31/19 112 RPT#: [id number] DC DATE: STATUS: ADM IN [facility] [address] [place] [address] END OF REPORT
[2019-10-31 12:40] VITALS: BP 145/75
[2019-10-31] MEDS ORDERED: ZITHROMAX250 MG PO (13:43)
[2019-10-31] MEDS ORDERED: OMNICEF300 MG PO (13:44)
--- NOTE | 2019-10-31 15:30 | NUR ---
PATIENT STATED THAT SHE IS NOT FEELING WELL AND THAT SHE IS HURTING AND FEELS LIKE IT IS HARD TO BREATHE. SATS ARE 98%. STATED SHE JUST HAD A BREATHING TREATMENT. PAIN MEDS GIVEN OVER AN HOUR AGO. PATIENT DOES NOT SEEM TO BE IN DISTRESS AT THIS TIME. ALSO STATED THAT PEOPLE KEEP HARASSING HER TO GET UP AND SHE DOESNT WANT TO. EXPLAINED THAT IF SHE DOESNT GET UP THAT IT IS GOING TO BE WORSE ON HER LUNGS AND PAIN WELL. PATIENT STATED SHE DOESNT WANT TO GET UP. EXPLAINED TO PATIENT THAT I WOULD GIVE HER NORCO WHEN IT IS TIME. VERBALIZED UNDERSTANDING. CALL LIGHT WITHIN REACH.
--- NOTE | 2019-10-31 16:17 | MORECARE ---
CASE MANAGEMENT DISCHARGE SUMMARY PATIENT: CELY ANN UNIT: [id number] ADM DATE: 10/26/19 AGE: 64 : 55 SEX: F ROOM/BED: D.2208 AUTHOR: CATE AGUILA PHYSICIAN: REFERRING PHYSICIAN: JUAN PABLO MONTANO MD DATE OF SERVICE: 10/31/19 Discharge Plan Patient Name: CELY ANN Facility: [facility]:[place] : 1955 Planned Disposition: Inpatient Rehab Anticipated Discharge Date: Discharge Date: Expected LOS: Initial Reviewer: [email or web address] Initial Review Date: 10/26/2019 Generated: 10/31/19 5:17 pm Comments DCP- Discharge Planning Updated by [email or web address]: Jennifer Chu on 10/31/19 3:[address] PATIENT WILL BE DISCHARING TO INPATIENT REHAB TODAY I CALLED CELY WITH [facility] AND SHE WILL NEED TO REVOCATE HER HOSPICE FOR INPATIENT REHAB. CELY TO FAX FORM OVER DCP- Discharge Planning Updated by [email or web address]: Jennifer Chu on 10/31/19 10:[address] Patient Name: CELY ANN Admission Status: ER Accout number: [id number] Admission Date: 10-26-2019 : 1955 Admission Diagnosis: Attending: JUAN PABLO MONTANO Current LOS: 5 Anticipated DC Date: Planned Disposition: Inpatient Rehab Primary Insurance: MEDICARE A & B Discharge Planning Comments: CM met with patient to complete initial dc planning assessment. CM educated patient on the CM role and verbal consent given by patient to complete assessment. Patient lives at [facility] in terminal system operator care with [facility]. At discharge patient would like rehab before she goes back to the [facility] and feels this is a safe discharge. Patient has all the supplies/DME that she needs at the residential. She has a trach. IMM served and explained to patient and NAVID with Inpatient rehab at [facility] has been signed along with [facility]. Patient denied known discharge needs at this time. CM will continue to follow and will assist as needed with dc plans/needs. Public Relations Manager: Jennifer Chu DCPIA - Discharge Planning Initial Assessment Updated by [email or web address]: Jennifer Chu on 10/31/19 11:13 am * Is the patient Alert and Oriented? Yes * PCP DUSTY * Pharmacy [facility] * Preadmission Environment [facility] * Facility Name [facility] * ADLs Partial Dependent * Partial ADLs (Assistance needed) Bathing Medication Management * Equipment Oxygen Trach Care Supplies * List name and contact numbers for known caregivers / representatives who currently or will assist patient after discharge: SARAH CHANG [phone] * Verbal permission to speak to the caregivers and representatives has been obtained from the patient. N/A * Community resources currently utilized Other * Please name any agencies selected above. [facility] AT [facility] * Additional services required to return to the preadmission environment? Yes * Can the patient safely return to the preadmission environment? Yes * Has this patient been hospitalized within the prior 30 days at any hospital? No Coverage Notice Reviewer: [id number] Yarely Chu Notice Issued Date-Time: 10/31/2019 9:50 Notice Type: IM Discharge Notice Notice Delivered To: Patient Relationship to Patient: Customer Experience Intern Name: Delivery Method: HAND - Hand Delivered Laxmi Days: Prior Verbal Notification: Recipient Understood Notice: Yes Recipient Signature: Yes Med Rec Note Co-signed by Attending: Coverage Notice Comment: Reviewer: [email or web address] Yarely Chu Notice Issued Date-Time: 10/31/2019 9:50 Notice Type: Patient Choice Letter Notice Delivered To: Patient Relationship to Patient: Customer Experience Intern Name: Delivery Method: HAND - Hand Delivered Laxmi Days: Prior Verbal Notification: Recipient Understood Notice: Yes Recipient Signature: Yes Med Rec Note Co-signed by Attending: Coverage Notice Comment: NAVID [facility] INPATIENT REHAB AT [facility] Last DP export: 10/31/19 10:21 Patient Name: CELY ANN Page [phone] at 1617 All edits/amendments must be made on the electronic document DICTATION DATE: 10/31/191616 STATION SUPERVISOR: DOMINIC 10/31/191616 RPT#: [id number] DC DATE: STATUS: ADM IN [facility] [address] [place] [address] END OF REPORT
--- NOTE | 2019-10-31 16:22 | NUR ---
Rehab Note- Acute Inpatient Rehab prescreen order received. THe patient is a good inpatient rehab candidiate. Will accept when medically stable and ready for discharge from the acute hospital. Spoke with MIRIAN Marcano. THank you for this referral! Lena Cordova RN Clinical Liaison, [facility] Rehab
[2019-10-31 16:45] VITALS: BP 129/66
--- NOTE | 2019-10-31 16:55 | NUR ---
CALLED REPORT TO JORGE LUIS IN REHAB.
--- NOTE | 2019-10-31 18:51 | NUR ---
PATIENT TAKEN TO REHAB WITH [facility]ERSON[facility] BY FELICITY X 2.
== END 2019-10-31 19:21 | DRG 480 ==
LOC: D.ER 10:48 → D.MS 13:29 → D.SDCHOLD 10-30 13:38 → D.MS 10-31 19:21
PROVIDERS: Emergency Medicine; Family Medicine; Orthopaedic Surgery; ADMIT Legal Medicine; ATTEND Legal Medicine
PROC: 0QH634Z Insertion of Internal Fixation Device into Right Upper Femur, Percutaneous Approach (ICD-10-PCS; principal; 2019-10-27 12:00)
DX: S72.001A Fracture of unspecified part of neck of right femur, initial encounter for closed fracture (principal); J18.9 Pneumonia, unspecified organism; W19.XXXA Unspecified fall, initial encounter; Y92.129 Unspecified place in nursing home as the place of occurrence of the external cause; J44.9 Chronic obstructive pulmonary disease, unspecified; I10 Essential (primary) hypertension

== ENCOUNTER 2019-10-31 16:55 | Inpatient (IN) | payer MEDICARE ==
[~2019-10-31] VITALS: Ht 162.6 cm; Wt 54.9 kg
[~2019-10-31 16:55] MED LIST changes: +OMNICEF300 MG PO; +ZITHROMAX250 MG PO
[2019-10-31 20:12] VITALS: BP 144/86
--- NOTE | 2019-10-31 20:18 | NUR ---
HERE FOR PHYSICAL REHAB AND SERVICES OF DR COX. SEE ADMMISSION ASSESSMENTS AND HISTORY. AWAKE AND ALERT. HAS TRACH STOMA AND IS ON 40% TRACH COLLAR. HX OF PNEUMONIA AND FRACTURED RIGHT HIP. DRESSING TO RIGHT HIP DRY AND INTACT. REIS PATENT. USES PEN AND PAPER TO COMMUNICATE RELATED TO STOMA. NO ACUTE DISTRESS NOTED. CALL LIGHT IN REACH. WILL MONITOR.
[2019-10-31 21:31] VITALS: BP 144/86; BMI 20.8
[2019-10-31 23:16] LABS: APPEARANCE CLEAR (CLEAR); BILIRUBIN NEGATIVE (NEGATIVE); COLOR YELLOW (YELLOW); GLUCOSE NEGATIVE (NEGATIVE); KETONE NEGATIVE (NEGATIVE); NITRITE NEGATIVE (NEGATIVE); PROTEIN 1+ mg/dL (NEGATIVE); SPECIFIC GRAVITY 1.005 (1.005-1.020); UROBILINOGEN NORMAL (NORMAL)
[2019-10-31 23:18] LABS: BACTERIA FEW /hpf (NEGATIVE); EPITHELIAL CELLS 0-5 /hpf (0-5); RED CELLS - URINE 0-5 /hpf (0-5); WHITE CELLS - URINE 0-5 /hpf (NEGATIVE)
--- NOTE | 2019-11-01 01:12 | NUR ---
RESTING IN BED WITH RESPIRAITONS UNLABORED. SMILEY PATENT. NO DISTRESS NOTED. CALL LIGHT IN REACH.
--- NOTE | 2019-11-01 03:05 | NUR ---
RESTING WITH NO DISTRESS NOTED. CONTINUES ON TRACH COLLAR AT 40%. CALL LIGHT IN REACH.
--- NOTE | 2019-11-01 05:10 | NUR ---
QUIET HOURS. NO ACUTE CHANGES IN CONDITION THIS SHIFT. CONTINUES ON TRACH COLLAR AT 40%, REIS PATENT. HAVING AM LAB DRAWN AT THIS TIME. NO ACUTE DISTRESS NOTED.
[2019-11-01 06:22] LABS: BASOPHILS 0.5 % (0-2); EOSINOPHILS 2.9 % (0-7); HEMATOCRIT 35.8 % (36.0-48.0); HEMOGLOBIN 10.6 g/dL (12-16); IMMATURE GRANULOCYTES 0.3 % (0-5); LYMPHOCYTES 25.2 % (15-50); MCH 26.4 pg (26.0-34.0); MCHC 29.6 g/dL (31.0-37.0); MCV 89.1 fL (80.0-100.0); MEAN PLATELET VOLUME 11.9 fL (7.4-10.4); MONOCYTES 7.3 % (2-11); NEUTROPHILS 63.8 % (40-80); PLATELET COUNT 232 10x3/uL (130-400); RBC 4.02 10x6/uL (4.00-5.40); RDW 14.2 % (11.5-14.5); WBC 6.3 10x3/uL (4.8-10.8)
[2019-11-01 07:10] LABS: CALC OSMOLALITY 284 mosm/kg (275-300); CALCIUM 8.5 mg/dL (8.5-10.1); CARBON DIOXIDE 33.3 mmol/L (21.0-32.0); CHLORIDE - SERUM 104 mmol/L (98-107); CREATININE - SERUM 0.5 mg/dL (0.6-1.3); GLUCOSE 103 mg/dL (74-106); SODIUM 143 mmol/L (136-145); UREA NITROGEN 13 mg/dL (7-18); eGFR NON AFRICAN AMERICAN > 90 mL/min (90-120)
[2019-11-01 07:46] VITALS: BP 160/83
--- NOTE | 2019-11-01 08:00 | NUR ---
SHIFT ASSMT COMPLETED.BREAKFAST GIVEN.CL IN REACH.O2 TO TRACH COLLAR IN PLACE.
--- NOTE | 2019-11-01 08:45 | NUR ---
FC DC'D;TIP INTACT.
--- NOTE | 2019-11-01 09:30 | NUR ---
VOIDED PER FX CHURCH.LARGE AMT.
--- NOTE | 2019-11-01 10:52 | NUR ---
PATIENT ADMITTED TO REHAB FROMA CUTE FLOOR. SHE IS A RESIDENT OF THE [facility] AND [facility]. HER PCP IS DR. MONTANO. SHE WILL RETURN TO THE [facility] AT DISCHARGE. WILL CONTINUE TO FOLLOW WITH PATIENT.
--- NOTE | 2019-11-01 12:00 | NUR ---
SITTING UP FOR LUNCH.DENIES NEEDS.CL IN REACH.
[2019-11-01 14:05] VITALS: Ht 162.6 cm; Wt 54.9 kg
--- NOTE | 2019-11-01 16:14 | NUR ---
CARE TEAM MEETING: PATIENT IS NEW TO UNIT AND WILL BE RA AT NEXT MEETING. WILL CONTINUE TO FOLLOW WITH PATIENT.
--- NOTE | 2019-11-01 19:20 | NUR ---
BEDSIDE REPORT COMPLETE. PT LYING IN BED WATCHING TV. ALERT AND ORIENTED X4. DENIES ANY NEEDS OR PAIN. NO SIGNS OF ACUTE DISTRESS NOTED. CL IN REACH. FALL PRECAUTIONS IN PLACE. WILL CONTINUE TO MONITOR
[2019-11-01 21:44] VITALS: BP 192/98
--- NOTE | 2019-11-02 00:07 | NUR ---
QUIET HOURS. PT LYING IN BED ON RIGHT SIDE EYES CLOSED RESTING COMFORTABLY. HOB 30 DEGREES. RR EVEN AND UNLABORED. CL IN REACH
--- NOTE | 2019-11-02 03:55 | NUR ---
PT LYING IN BED ON RIGHT SIDE EYES CLOSED RESTING QUIETLY. RR EVEN AND UNLABORED. CL IN REACH
--- NOTE | 2019-11-02 06:52 | NUR ---
PT LYING IN BED ON RIGHT SIDE EYES CLOSED RESTING. RR EVEN AND UNLABORED. CL IN REACH
--- NOTE | 2019-11-02 08:00 | NUR ---
PT RESTING IN BED WITH EYES OPEN CALL LIGHT IN REACH NO PROBLEMS WILL MONITER
--- NOTE | 2019-11-02 08:15 | NUR ---
PT RESTING IN BED WITH EYES OPEN CALL LIGHT IN REACH NO PROBLEMS WILL MONITER
--- NOTE | 2019-11-02 18:02 | NUR ---
PT RESTING IN BED WITH EYES OPEN CALL LIGHT IN REACH NO PROBLEMS WILL MONITER
[2019-11-02 19:05] VITALS: BP 129/70
--- NOTE | 2019-11-02 19:05 | NUR ---
BEDSIDE REPORT COMPLETE. PT SITTING UP IN BED WATCHING TV. C/O RIGHT LEG PAIN REQUESTS PAIN MEDICATION INFORMED PT UNABLE TO ADMINISTER PAIN MEDICATION AT THIS TIME NEXT AVAILABLE DOSE NOT UNTIL 2100 PT VERBALIZED UNDERSTANDING AND REQUESTS MUSCLE RELAXER WILL ADMININSTER ZANAFLEX 2MG. NO SIGNS OF ACUTE DISTRESS NOTED. CONTINUES ON NEBULIZER TRACH COLLAR @ 40%. SHIFT ASSESSMENT COMPLETE. CL IN REACH. FALL PRECAUTIONS IN PLACE. WILL CONTINUE TO MONITOR
--- NOTE | 2019-11-03 00:07 | NUR ---
QUIET HOURS. PT LYING IN BED EYES CLOSED RESTING COMFORTABLY. HOB 30 DEGREES. RR EVEN AND UNLABORED. CL IN REACH
--- NOTE | 2019-11-03 03:40 | NUR ---
PT LYING IN BED ON RIGHT SIDE EYES CLOSED RESTING. RR EVEN AND UNLABORED. CL IN REACH
[2019-11-03 07:29] LABS: BASOPHILS 0.4 % (0-2); EOSINOPHILS 2.9 % (0-7); IMMATURE GRANULOCYTES 0.5 % (0-5); LYMPHOCYTES 35.3 % (15-50); MCH 25.7 pg (26.0-34.0); MCHC 29.3 g/dL (31.0-37.0); MCV 87.8 fL (80.0-100.0); MEAN PLATELET VOLUME 11.1 fL (7.4-10.4); MONOCYTES 8.2 % (2-11); NEUTROPHILS 52.7 % (40-80); RDW 14.2 % (11.5-14.5); WBC 5.5 10x3/uL (4.8-10.8)
[2019-11-03 07:45] LABS: CALC OSMOLALITY 286 mosm/kg (275-300); CALCIUM 8.6 mg/dL (8.5-10.1); CARBON DIOXIDE 34.4 mmol/L (21.0-32.0); CHLORIDE - SERUM 104 mmol/L (98-107); CREATININE - SERUM 0.6 mg/dL (0.6-1.3); GLUCOSE 91 mg/dL (74-106); SODIUM 143 mmol/L (136-145); UREA NITROGEN 18 mg/dL (7-18); eGFR NON AFRICAN AMERICAN > 90 mL/min (90-120)
[2019-11-03 07:46] LABS: HEMOGLOBIN 8.2 g/dL (12-16); PLATELET COUNT 156 10x3/uL (130-400); RBC 3.19 10x6/uL (4.00-5.40)
--- NOTE | 2019-11-03 08:15 | NUR ---
PT RESTING IN BED WITH EYES OPEN CALL LIGHT IN REACH NO PROBLEMS WILL MONITER
[2019-11-03 08:19] VITALS: BP 118/68
--- NOTE | 2019-11-03 13:46 | NUR ---
Nutrition Follow-up: Diet: Regular + Ensure TID PO intake: ~45% average x last 9 meals; she indicates to me that she is not drinking Ensure and request that I remove it from her meal trays. Last BM: none recorded since admit. WT: 121# (11/01/19) Significant meds: prednisone, lasix, abx. Labs reviewed. Continue current nutrition regimen. Encouraged PO intake. Will remove Ensure from diet order for now per patient request. Will continue to monitor PO intake and wt trend. RD following.
--- NOTE | 2019-11-03 18:24 | NUR ---
PT UP IN CHAIR AT BED SIDE CALL LIGHT IN REACH WATCHING TV WILL MONITER
[2019-11-03 19:51] VITALS: BP 124/79
--- NOTE | 2019-11-03 19:59 | NUR ---
AWAKE AND ALERT. SITTING IN WHEELCHAIR. ASSISTED TO BED. INCONTINENT OF BM. INCONTINENCE CARE GIVEN. O2 AT 40% ON PER TRACH COLLAR. NOTED SHORT OF BREATH WITH MINIMAL EXERTION. RESTING NOW. CALL LIGHT IN REACH.
--- NOTE | 2019-11-04 00:43 | NUR ---
RESTING IN BED WITH EYES CLOSED AND RESPIRATIONS UNLABORED. NO ACUTE DISTRESS NOTED. CALL LIGHT IN REACH.
--- NOTE | 2019-11-04 02:36 | NUR ---
CONTINUES SLEEPING WITH RESPIRATIONS UNLABORED. NO DISTRESS NOTED.
--- NOTE | 2019-11-04 04:59 | NUR ---
ASSISTED TO BATHROOM AND BACK TO BED. WAS INCONTINENT OF BM. INCONTINENCE CARE GIVEN AND CLOTHES AND BRIEF CHANGED. NOW RESTING IN BED WITH TRACH COLLAR ON AT 40%. NOTED SHORT OF BREATH WITH MINIMAL EXERTION BUT RESPIRATIONS EASE WHEN AT REST. CALL LIGHT IN REACH.
[2019-11-04 08:00] VITALS: BP 171/94
--- NOTE | 2019-11-04 08:00 | NUR ---
SHIFT ASSMT COMPLETED.
[2019-11-04 19:28] VITALS: BP 115/62
--- NOTE | 2019-11-04 19:31 | NUR ---
AWAKE AND ALERT. RESTING IN BED WITH O2 ON AT 40% ON TRACH COLLAR. NO ACUTE DISTRESS NOTED. CALL LIGHT IN REACH.
--- NOTE | 2019-11-04 22:57 | NUR ---
RESTING IN BED WITH NO ACUTE DISTRESS NOTED.
--- NOTE | 2019-11-05 02:28 | NUR ---
RESTING IN BED WITH EYES CLOSED. O2/40% ON TRACH COLLAR. NO DISTRESS NOTED.
--- NOTE | 2019-11-05 05:17 | NUR ---
QUIET HOURS. NO ACUTE CHANGES IN CONDITION THIS SHIFT. RESTING IN BED WITH O2 ON PER TRACH COLLAR AT 40%. NO ACUTE DISTRESS NOTED.
[2019-11-05 08:00] VITALS: BP 154/81
--- NOTE | 2019-11-05 08:00 | NUR ---
SHIFT ASSMT COMPLETED.MEAL TRAY GIVEN.CL IN REACH.CHECKED FOR DRYNESS AFTER STATING SHE WAS DRY.INSTRUCTED TO LET NURSES KNOW WHEN SHE GOES TO BATHROOM.
--- NOTE | 2019-11-05 12:00 | NUR ---
HAS STATED NO BATHROOM NEED WHEN ASKED EARLIER;ASKED IF SHE WAS WET AND STATED YES.UP OOB TO BATHROOM,VOIDED IN COMMODE AFTER BRIEF BEING SOAKED THROUGH WITH URINE.REMOVED AND SHOWER GIVEN.LINENS CHANGED.REMINDED TO CALL NURSE IF NEED TO GO TO BATHROOM.
--- NOTE | 2019-11-05 16:00 | NUR ---
CONTINUE TO MONITOR
[2019-11-05 19:25] VITALS: BP 178/92
--- NOTE | 2019-11-05 19:27 | NUR ---
AWAKE AND ALERT. SITTING ON SIDE OF BED WRITING. O2 AT 40% ON PER TRACH COLLAR. NO ACUTE DISTRESS NOTED. CALL LIGHT IN REACH.
--- NOTE | 2019-11-06 00:52 | NUR ---
INCONTINENT OF URINE. INCONTINENCE CARE GIVEN AND MEDICATED FOR C/O PAIN. SEE MAR. CONTINUES ON TRACH COLLAR AT 40%
[2019-11-06 09:01] VITALS: BP 154/79
--- NOTE | 2019-11-06 11:15 | NUR ---
BATHED WITH OT.
--- NOTE | 2019-11-06 11:22 | NUR ---
PARTICIPATING IN THERAPY AT THIS TIME. PAIN MED GIVEN FOR R HIP PAIN. TRACH STOMA WITH O2 AT 40 PERCENT (ON PORTABLE TANK DURING THERAPY).
--- NOTE | 2019-11-06 14:08 | NUR ---
MINE X4 DC'D FROM Yenny FOOTE.
--- NOTE | 2019-11-06 16:35 | NUR ---
NO CHANGE IN ASSESSMENT. RESTING WO DISTRESS. CL IN REACH.
[2019-11-06 19:10] VITALS: BP 88/55
--- NOTE | 2019-11-06 19:10 | NUR ---
BEDSIDE REPORT COMPLETE. PT LYING IN BED WATCHING TV. ALERT AND ORIENTED X4. DENIES ANY NEEDS OR PAIN. RR EVEN AND UNLABORED. CONTINUES ON 40% NEBULIZED TRACH COLAR. VS STABLE. SHIFT ASSESSMENT COMPLETE. CL IN REACH. FALL PRECAUTIONS IN PLACE. WILL CONTINUE TO MONITOR
--- NOTE | 2019-11-06 23:47 | NUR ---
QUIET HOURS. PT LYING IN BED ON RIGHT SIDE EYES CLOSED RESTING. RR EVEN AND UNLABORED. CL IN REACH
--- NOTE | 2019-11-07 04:04 | NUR ---
PT LYING IN BED ON RIGHT SIDE EYES CLOSED RESTING. RR EVEN AND UNLABORED. CL IN REACH
--- NOTE | 2019-11-07 05:52 | NUR ---
PT SITTING UP IN BED AWAKE AND ALERT. C/O 05/31 LOWER BACK AND RIGHT HIP PAIN. ADMININSTERED SCHEDULE DOSE MS CONTIN. DENIES ANY OTHER NEEDS. CL IN REACH
--- NOTE | 2019-11-07 08:00 | NUR ---
PT RESTING IN BED WITH EYES OPEN CALL LIGHT IN REACH NO PROBLEMS WILL MONITER
--- NOTE | 2019-11-07 08:00 | NUR ---
PT RESTING IN BED WITH EYES OPEN CALL LIGHT IN REACH NO PROBLEMS WILL MONITER
--- NOTE | 2019-11-07 13:33 | NUR ---
Nutrition Follow-up: Diet: Regular PO intake: ~47% average x 9 meals; Reports "okay" appetite. Last BM: 11/07/19. WT: 121# (11/01/19), no new wt Significant meds: prednisone, lasix, abx. Labs reviewed Continue current diet. RD following.
--- NOTE | 2019-11-07 18:55 | NUR ---
BEDSIDE REPORT COMPLETE. PT SITTING UP IN W/C REQUESTED ASSISTANCE TO RESTROOM ASSISTED WITH MIN ASSIST WALKING TO RESTROOM. RR EVEN AND UNLABORED. CONTINUES ON NEBULIZED TRACH COLLAR @ 40%. PT NOW SITTING ON SIDE OF BED WATCHING TV. DENIES ANY OTHER NEEDS. VS STABLE. SHIFT ASSESSMENT COMPLETE. CL IN REACH. BED ALARM ON. WILL CONTINUE TO MONITOR
[2019-11-07 19:00] VITALS: BP 92/58
--- NOTE | 2019-11-07 23:25 | NUR ---
QUIET HOURS. PT LYING IN BED ON RIGHT SIDE EYES CLOSED RESTING. RR EVEN AND UNLABORED. CL IN REACH
--- NOTE | 2019-11-08 03:10 | NUR ---
ASSISTED PT TO RESTROOM AND BACK TO BED WITH MIN ASSIST. C/O 7/10 GENERALIZED PAIN RADIATING THROBBING REQUEST PAIN MEDICATION. WILL ADMININSTER PRN MORPHINE 15MG PER ORDER. NO OTHER CONCERNS VOICED. CL IN REACH
[2019-11-08 06:59] LABS: BASOPHILS 0.3 % (0-2); EOSINOPHILS 1.8 % (0-7); HEMATOCRIT 32.1 % (36.0-48.0); HEMOGLOBIN 9.6 g/dL (12-16); IMMATURE GRANULOCYTES 0.3 % (0-5); LYMPHOCYTES 28.8 % (15-50); MCH 26.2 pg (26.0-34.0); MCHC 29.9 g/dL (31.0-37.0); MCV 87.5 fL (80.0-100.0); MEAN PLATELET VOLUME 11.3 fL (7.4-10.4); NEUTROPHILS 60.8 % (40-80); RBC 3.67 10x6/uL (4.00-5.40); RDW 14.3 % (11.5-14.5); WBC 7.7 10x3/uL (4.8-10.8)
[2019-11-08 07:05] LABS: CALC OSMOLALITY 279 mosm/kg (275-300); CALCIUM 7.8 mg/dL (8.5-10.1); CARBON DIOXIDE 33.3 mmol/L (21.0-32.0); CHLORIDE - SERUM 103 mmol/L (98-107); CREATININE - SERUM 0.5 mg/dL (0.6-1.3); GLUCOSE 99 mg/dL (74-106); PLATELET COUNT 272 10x3/uL (130-400); SODIUM 139 mmol/L (136-145); UREA NITROGEN 18 mg/dL (7-18); eGFR NON AFRICAN AMERICAN > 90 mL/min (90-120)
[2019-11-08 08:00] VITALS: BP 120/63
--- NOTE | 2019-11-08 08:00 | NUR ---
SHIFT ASSMT COMPLETED.
--- NOTE | 2019-11-08 12:00 | NUR ---
EATING LUNCH ON SIDE OF BED.
--- NOTE | 2019-11-08 16:00 | NUR ---
WILL CONT TO MONITOR
--- NOTE | 2019-11-08 16:33 | NUR ---
CARE TEAM MEETING: PATIENT DOING VERY WELL IN THERAPY. TENATIVE DISCHARGE DATE IS 11/14/19 . 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 WILL CONTINUE TO FOLLOW WITH PATIENT.
[2019-11-08 19:39] VITALS: BP 99/54
--- NOTE | 2019-11-08 19:42 | NUR ---
AWAKE AND ALERT. RESTING IN BED. TRACH COLLAR ON AT 40%. NO ACUTE DISTRESS NOTED. CALL LIGHT IN REACH.
--- NOTE | 2019-11-09 00:22 | NUR ---
RESTING IN BED WITH NO ACUTE DISTRESS NOTED. TRACH COLLAR ON AT 40%
--- NOTE | 2019-11-09 02:30 | NUR ---
RESTING IN BED AWAKE. NO DISTRESS NOTED. NO NEEDS VOICED.
--- NOTE | 2019-11-09 04:56 | NUR ---
QUIET HOURS. NO ACUTE CHANGES IN CONDITION THIS SHIFT. CONTINUES ON TRACH COLLAR OXYGEN AT 40%. RESTING IN BED WITH NO DISTRESS NOTED.
[2019-11-09 08:00] VITALS: BP 93/55
--- NOTE | 2019-11-09 08:00 | NUR ---
SHIFT ASSMT COMPLETED.
--- NOTE | 2019-11-09 12:00 | NUR ---
SITTING UP ON EDGE OF BED.CL IN REACH;EATING LUNCH.
--- NOTE | 2019-11-09 14:26 | NUR ---
Nutrition Follow-up: Diet: Regular + Ensure once daily PO intake: ~54% average x last 6 meals; Pt states that her appetite is "okay." States that she does not like the taste of Ensure because she "lived on Ensure and Jevity for 3 years" after she got her trach. States that she is forcing herself to drink at least 1 Ensure/day because she knows that she needs it. Last BM: 11/08/19 x 2. WT: 121# (11/01/19), no new wt Meds noted: prednisone, lasix, abx. Labs and nursing skin assessment reviewed. Continue current nutrition regimen. RD following.
--- NOTE | 2019-11-09 21:22 | NUR ---
AWAKE AND ALERT. ASSISTED TO BATHROOM AND BACK TO BED. O2 AT 40% ON PER TRACH COLLAR. SHORT OF BREATH AND ANXIOUS WITH MINIMAL EXERTION. ENCOURAGED TO COUGH OUT PHLEGM. SHE DID COUGH UP A SMALL AMOUNT OF SPUTUMN. NOW RESTING IN BED. CALL LIGHT IN REACH.
--- NOTE | 2019-11-10 02:20 | NUR ---
RESTING WITH EYES CLOSED AND NO RESPIRATORY DISTRESS NOTED. CALL LIGHT IN REACH.
--- NOTE | 2019-11-10 05:32 | NUR ---
QUIET HOURS. NO ACUTE CHANGES IN CONDITION THIS SHIFT. TRACH COLLAR ON AT 40%. AWAKE AND IN BED WITH NO DISTRESS NOTED.
[2019-11-10 07:50] LABS: CALC OSMOLALITY 282 mosm/kg (275-300); CALCIUM 8.4 mg/dL (8.5-10.1); CARBON DIOXIDE 33.6 mmol/L (21.0-32.0); CHLORIDE - SERUM 102 mmol/L (98-107); CREATININE - SERUM 0.6 mg/dL (0.6-1.3); GLUCOSE 74 mg/dL (74-106); POTASSIUM - SERUM 4.2 mmol/L (3.5-5.1); SODIUM 140 mmol/L (136-145); UREA NITROGEN 26 mg/dL (7-18); eGFR NON AFRICAN AMERICAN > 90 mL/min (90-120)
[2019-11-10 07:55] LABS: BASOPHILS 0.5 % (0-2); EOSINOPHILS 2.1 % (0-7); HEMATOCRIT 34.6 % (36.0-48.0); HEMOGLOBIN 10.1 g/dL (12-16); IMMATURE GRANULOCYTES 0.2 % (0-5); LYMPHOCYTES 28.5 % (15-50); MCH 26.2 pg (26.0-34.0); MCHC 29.2 g/dL (31.0-37.0); MEAN PLATELET VOLUME 11.6 fL (7.4-10.4); MONOCYTES 7.4 % (2-11); NEUTROPHILS 61.3 % (40-80); PLATELET COUNT 284 10x3/uL (130-400); RBC 3.86 10x6/uL (4.00-5.40); RDW 14.6 % (11.5-14.5); WBC 8.3 10x3/uL (4.8-10.8)
[2019-11-10 08:00] VITALS: BP 124/58
[2019-11-10 08:04] LABS: MCV 89.6 fL (80.0-100.0)
--- NOTE | 2019-11-10 10:42 | NUR ---
PT IN PT UPDRAFT NOT GIVEN
--- NOTE | 2019-11-10 16:25 | NUR ---
PT RESTING IN BED WITH EYES OPEN CALL LIGHT IN REACH NO PROBLEMS WILL MONITER
--- NOTE | 2019-11-10 18:52 | NUR ---
PT RESTING IN BED WITH EYES OPEN CALL LIGHT IN REACH WILL MONITER
[2019-11-10 19:10] VITALS: BP 116/68
--- NOTE | 2019-11-10 19:10 | NUR ---
BEDSIDE REPORT COMPLETE. PT SITTING UP ON SIDE OF BED. ALERT AND ORIENTED X4. DENIES ANY NEEDS. C/O GENERALIZED PAIN 4/10 ACHING. NO SIGNS OF ACUTE DISTRESS NOTED. CONTINUES ON 40% NEBULIZED TRACH COLLAR. CL IN REACH. FALL PRECAUTIONS IN PLACE. WILL CONTINUE TO MONITOR.
--- NOTE | 2019-11-11 00:57 | NUR ---
QUIET HOURS. PT LYING IN BED N RIGHT SIDE EYES CLOSED RESTING QUIETLY. RR EVEN AND UNLABORED. CL IN REACH.
--- NOTE | 2019-11-11 04:21 | NUR ---
PT LYING IN BED ON RIGHT SIDE EYES CLOSED RESTING. RR EVEN AND UNLABORED. CL IN REACH
--- NOTE | 2019-11-11 05:24 | NUR ---
ASSISTED PT TO RESTROOM AND BACK TO BED WITH SBA.
[2019-11-11 08:00] VITALS: BP 117/64
--- NOTE | 2019-11-11 08:00 | NUR ---
PATIENT IS ALERT/ORIENT. UNABLE TO COMMUNICATE WELL. WILL WRITE DOWN ON PAPER NEEDS. SHE HAS VERY HIGH ANXIETY. KEEPS TURNING BUILDING OPERATOR LIGHT. WILL CONITNIE WITH PLAN OF CARE
--- NOTE | 2019-11-11 10:27 | NUR ---
Nutrition consult: visited with pt re: food issues Pt upset because cheese was not buried in her grits; it was just sitting on top! Pt also upset because she is not getting a 20 oz cup of hot water for her tea; she just got an empty cup. Pt does not think she should have to tell the kitchen what she wants every time. I am not sure how she thinks they will know what she wants unless she tells them and I explained that to her. Pt also upset because they only sent her 3 sugars which is not a lot. I have asked nursing to get her items from the nourishment center if pt feels she has not gotten enough, ie; sugar, 20 oz cup hot water, milk etc. Pt wants a 20 oz cup hot water and tea bag with every meal; lost of sugar and whole milk. RDN has placed food items on diet so they will automatically be sent on her tray. ALISEN following.
--- NOTE | 2019-11-11 10:46 | NUR ---
PATIENT HELPED INTO BATHROOM. MODERATE ASST DUE TO RESP. EQUIPMENT.
--- NOTE | 2019-11-11 12:54 | NUR ---
PATIENT WROTE THAT HER RIGHT LEG AND RIGHT FOOT ARE HURTING HER, PATIENT FELT THAT SHE HAS A BLOOD CLOT. NEW ORDER FOR A VENOUS DOPPLER. PRN ATIVAN GIVEN
--- NOTE | 2019-11-11 15:41 | NUR ---
LESS ANXIEITY NOTED. PATIENT RESTING WELL. VENOUSE DOPPLER NEG.
[2019-11-11 19:10] VITALS: BP 123/72
--- NOTE | 2019-11-11 19:10 | NUR ---
BEDSIDE REPORT COMPLETE. PT SITTING UP ON SIDE OF BED ALERT AND ORIENTED X4. DENIES ANY NEEDS. C/O GENERALIZED PAIN MORE SO ON RIGHT HEEL AND LEG. MORPHINE IR 15MG ADMINISTERED. RR EVEN AND UNLABORED. CONTINUES ON 6L VIA TRACH COLLAR. RESPIRATORY CALLED PER PT REQUEST FOR UPDRAFT. VS STABLE. SHIFT ASSESSMENT COMPLETE. CL IN REACH. FALL PRECAUTIONS IN PLACE. WILL CONTINUE TO MONITOR
--- NOTE | 2019-11-12 01:06 | NUR ---
QUIET HOURS. PT LYING IN BED RIGHT SIDE EYES CLOSED RESTING QUIETLY. RR EVEN AND UNLABORED. CL IN REACH
--- NOTE | 2019-11-12 03:50 | NUR ---
ASSISTED PT TO RESTROOM AND BACK TO ROOM, SITTING UP IN WC WATCHING TV. CL IN REACH.
--- NOTE | 2019-11-12 05:10 | NUR ---
ASSISTED PT WITH SHOWER MOD ASSIST. DRESSING MOD ASSIST. PLACED PT BACK ON WALL O2 @ 6L VIA TRACH COLLAR. NO SIGNS OF ACUTE DISTRESS NOTED. PT SITTING UP IN W/C. CL IN REACH
[2019-11-12 08:00] VITALS: BP 135/89
--- NOTE | 2019-11-12 08:00 | NUR ---
SHIFT ASSMT COMPLETED.BREAKFAST GIVEN.CL IN REACH.
--- NOTE | 2019-11-12 12:00 | NUR ---
SITTING ON SIDE OF BED.LUNCH GIVEN
--- NOTE | 2019-11-12 16:00 | NUR ---
SITTING ON SIDE OF BED.MUCH BETTER SINCE ATIVAN GIVEN.SHE IS LESS ANXIOUS AND WORRYSOME.
[2019-11-12 19:40] VITALS: BP 121/59
--- NOTE | 2019-11-12 19:40 | NUR ---
BEDSIDE REPORT COMPLETE. PT SITTING UP ON SIDE OF BED WATCHING TV. DENIES ANY NEEDS OR PAIN. RR EVEN AND UNLABORED. VS STABLE. SHIFT ASSESSMENT COMPLETE. CL IN REACH. FALL PRECAUTIONS IN PLACE. WILL CONTINUE TO MONITOR
--- NOTE | 2019-11-12 23:32 | NUR ---
QUIET HOURS. PT LYING IN BED SUPINE EYES CLOSED RESTING. HOB 15 DEGREES. RR EVEN AND UNLABORED. CONTINUES ON 6L VIA TRACH COLLAR. CL IN REACH.
--- NOTE | 2019-11-13 03:36 | NUR ---
PT SITTING UP ON SIDE OF BED. RESPIRATORY IN ROOM.
--- NOTE | 2019-11-13 05:00 | NUR ---
ASSISTED PT TO RESTROOM AND BACK TO BED WITH SBA. SITTING UP IN W/C WATCHING TV.
[2019-11-13 07:04] LABS: CALC OSMOLALITY 290 mosm/kg (275-300); CALCIUM 8.6 mg/dL (8.5-10.1); CARBON DIOXIDE 32.6 mmol/L (21.0-32.0); CHLORIDE - SERUM 105 mmol/L (98-107); CREATININE - SERUM 0.5 mg/dL (0.6-1.3); GLUCOSE 97 mg/dL (74-106); POTASSIUM - SERUM 5.1 mmol/L (3.5-5.1); SODIUM 143 mmol/L (136-145); UREA NITROGEN 29 mg/dL (7-18); eGFR NON AFRICAN AMERICAN > 90 mL/min (90-120)
[2019-11-13 07:31] LABS: BASOPHILS 0.7 % (0-2); EOSINOPHILS 4.3 % (0-7); IMMATURE GRANULOCYTES 0.5 % (0-5); LYMPHOCYTES 17.2 % (15-50); MCH 26.4 pg (26.0-34.0); MCHC 30.3 g/dL (31.0-37.0); MCV 87.1 fL (80.0-100.0); MEAN PLATELET VOLUME 12.7 fL (7.4-10.4); NEUTROPHILS 68.3 % (40-80); PLATELET COUNT 265 10x3/uL (130-400); RBC 3.79 10x6/uL (4.00-5.40); RDW 14.4 % (11.5-14.5); WBC 9.4 10x3/uL (4.8-10.8)
--- NOTE | 2019-11-13 08:26 | NUR ---
ALERT AND ORIENTED. SITTING IN WC EATING BREAKFAST. NO C/O PAIN CL IN REACH.
[2019-11-13 08:48] VITALS: BP 156/63
--- NOTE | 2019-11-13 13:01 | NUR ---
PARTICIPATED IN THERAPY THIS AM. NO C/O PAIN AT THIS TIME. CL IN REACH.
--- NOTE | 2019-11-13 13:44 | NUR ---
Nutrition Follow-up: Diet: Regular + Ensure with breakfast tray PO intake: ~68% average x last 10 meals Last BM: 11/12/19 x 3. WT: 121# (11/01/19), no new wt Meds noted: prednisone, lasix, miralax. Labs reviewed. Continue current nutrition regimen. RD following.
--- NOTE | 2019-11-13 14:25 | NUR ---
REFUSED TO TAKE SHOWER WITH OT.
--- NOTE | 2019-11-13 15:55 | NUR ---
NO CHANGE IN ASSESSMENT. SITTING IN CHAIR. CL IN REACH.
[2019-11-13 19:05] VITALS: BP 110/62
--- NOTE | 2019-11-13 19:10 | NUR ---
BEDSIDE REPORT COMPLETE. PT LYING IN BED EYES CLOSED RESTING. AROUSES WITH VERBAL STIMULI. DENIES ANY NEEDS OR PAIN. CONTINUES ON 6L VIA TRACH COLLAR. NO SIGNS OF ACUTE DISTRESS NOTED. VS STABLE. SHIFT ASSESSMENT COMPLETE. CL IN REACH. BED ALARM ON. WILL CONTINUE TO MONITOR
--- NOTE | 2019-11-14 01:34 | NUR ---
QUIET HOURS. PT LYING IN BED EYES CLOSED RESTING. RR EVEN AND UNLABORED. CL IN REACH
--- NOTE | 2019-11-14 05:19 | NUR ---
PT LYING IN BED ON RIGHT SIDE EYES CLOSED RESTING. RR EVEN AND UNLABORED. CL IN REACH
--- NOTE | 2019-11-14 08:04 | NUR ---
EATING BREAKFAST. NO DISTRESS NOTED. CL IN REACH.
--- NOTE | 2019-11-14 08:30 | NUR ---
PATIENT DISCHARGING BACK TO THE [facility] WHERE SHE RESIDED IN SNF CARE. PATIENT WILL READMITT TO [facility]. PATIENT WILL TRANSPORT VIA FACILITY VAN. DR. GROSS / KALLIE CLARK 11/27/19 @ 2:00. PATIENT CHOICE FORM AND IMFM FORMS SIGNED, COPY GIVEN TO PATIENT. DISCHARGE INSTRUCTIONS FAXED TO THE [facility] AND REVIEWED WITH THE PATIENT.
[2019-11-14 08:50] VITALS: BP 156/63
--- NOTE | 2019-11-14 12:07 | NUR ---
REPORT GIVEN TO DEVIN MEADOWS AT THE [facility]. [facility] IS HERE TO PICK HER UP AT THIS TIME.
--- NOTE | 2019-11-20 10:22 | RHP ---
PATIENT: CELY ANN MEDICAL RECORD: [id number] ACCOUNT: [id number] LOCATION:[id number] : 55 ADMISSION DATE: 10/31/19 REHABILITATION HISTORY AND PHYSICAL EXAMINATION POST ADMISSION PHYSICIAN EXAMINATION DATE OF ADMISSION: 10/31/2019 ADMITTING DIAGNOSIS: Status post right hip fixation HISTORY OF PRESENT ILLNESS: The patient is a 64-year-old female patient who apparently presented to the ED after [facility] at a [facility] with complaints of right wrist and hip pain. X-ray showed a minimally displaced right hip fracture. Chest x-ray showed left lower lobe pneumonia. She got a history of COPD, hypertension, chronic cough, depression, anxiety, tobacco use, and previous tracheostomy. The patient was seen and evaluated. She had an orthopedic surgical consult, who underwent a right femoral neck fracture, percutaneous pinning for a right femoral neck fracture on 10/27/2019, slowly progressed with therapy, sense of increased shortness of breath during her acute hospital stay, currently having some acute pain. She got a Grullon catheter. She is on antibiotics for her pneumonia. She is toe-touch weightbearing to the right lower extremity with precautions, deconditioning, weakness, debility, gait disturbance, impaired mobility, high fall risk and self-care deficits. These are all barriers to her discharge back to the [facility]. Lives at the [facility] as a long-term resident and was independent with her ADLs and use of rolling walker. Currently, she is set up for max assist for ADLs, mod to max assist for mobility. She plans to return home at her prior level of functioning or better if possible. COMORBIDITIES: Include falls, hypoxia, dyspnea, hypertension, hypotension, glucose problems, fluid overload, dehydration, edema, impaired skin integrity, aspiration, infection, fatigue, bleeding, cardiac arrhythmias, acute mental status changes, respiratory distress, DVT, history of PE in the past, change in cognition, incontinence, anxiety, postop pain, postop infection, and postop wound dehiscence. PAST MEDICAL HISTORY: Significant for numbness. She got a history of trach in the past, thyroid problems, hypertension, COPD, home O2 dependent, chronic cough, chronic back pain, menopause, depression, anxiety, history of tobacco use. PAST SURGICAL HISTORY: Includes gallbladder surgery, hip replacement, tracheoesophageal puncture in the past, facial surgery with metal hardware placed, esophageal reconstruction with jejunal graft. She has had an ankle fracture and multiple esophageal dilatations. ALLERGIES: ANY TYPE OF FISH DERIVED OR SHELLFISH DERIVED PRODUCTS. CURRENT MEDICATIONS: Include digoxin 0.125 mg daily; Protonix 40 mg daily; she is on prednisone 10 mg daily; potassium 20 mEq daily; MiraLax, she is on 34 grams daily; she is on Bystolic 5 mg daily; meloxicam 7.5 mg daily; furosemide 20 mg daily; she is on Colace 100 mg daily; Zithromax 500 mg daily; cefdinir, she is on 300 mg daily; on calcium 500 mg t.i.d.; Amitiza 24 mcg b.i.d.; morphine CR 30 mg q.8 hours; guaifenesin 600 mg b.i.d.; trazodone 50 mg at bedtime; Carafate 1 g q.a.c. and at bedtime; Lyrica 75 mg b.i.d.; Singulair 10 HISTORY AND PHYSICAL [id number] POLLITZERCELY M mg at bedtime; Pepcid 20 mg b.i.d.; she is on Tessalon Perles 100 mg t.i.d.; ascorbic acid 500 mg b.i.d.; tizanidine 2 mg. q.8 hours p.r.n. updrafts as needed; Ativan 1 mg at bedtime p.r.n.; she is on Aspercreme to apply as needed; Zofran p.r.n. nausea and vomiting; morphine IR 15 mg every 4 hours p.r.n.; melatonin 6 mg at bedtime; she is on Mylanta p.r.n.; Tums 1000 mg q.6 hours p.r.n.; and clonidine for blood pressures greater than 170 and the systolic or diastolic blood pressure greater than 105. HABITS: Does have a distant history of tobacco use. FAMILY HISTORY: Noncontributory. SOCIAL HISTORY: The patient hopes to return to her long-term acute facility at the [facility]. REVIEW OF SYSTEMS: GENERAL: Does complain of weakness and fatigue. HEENT: Does complain of cold, cough, and congestion. CARDIOVASCULAR: Denies any chest pain. PHYSICAL EXAMINATION: VITAL SIGNS: Stable, afebrile. GENERAL: Elderly female, in no acute distress, alert upon exam. HEENT: Normocephalic and atraumatic. Mucosa moist. NECK: Supple. No lymphadenopathy. She does have previous tracheostomy noted. LUNGS: Clear in upper ramey with decreased breath sounds in the bases. HEART: Irregular rate and rhythm. No murmurs, rubs or gallops. ABDOMEN: Soft, benign, and nondistended. Positive bowel sounds times 4. EXTREMITIES: No clubbing, cyanosis or edema. Postop area appears normal. NEUROLOGIC: She does have some noted weakness. LABORATORY DATA: White count is 6.3, H&H of 11 and 36, and platelet count is noted to be 232. Her sodium is 143, potassium 4.0, BUN and creatinine of 13 and 0.5, blood sugar is noted to be 103. Her admit UA did show trace leukocyte esterase and a few bacteria that have been noted. ASSESSMENT: This 64-year-old female patient admitted to rehab with a working diagnosis of right hip fracture. The patient has potential to make improvement. We instituted the following multidisciplinary therapies include, but not limited to physical, occupational, respiratory, speech, nutritional services, prosthetics and orthotics. Given her complex medical condition and risks for more complications, rehabilitation services cannot be provided at a low level of care such as skilled nurse facility. PLAN: 1. Admit to [facility] for intensive inpatient therapy to include the following disciplines: A. Physical therapy to improve gait, all transfer skills and bed mobility to a modified independent level. B. Occupational therapy to assist with activities of daily living. C. Case management to assist with discharge planning and placement options. D. Nutrition to assist with nutritional needs. E. Rehabilitation nursing to assist in monitoring the patient's underlying medical conditions and to assist with any type of bowel or bladder management. 2. The patient's current medications and medical care will be continued. HISTORY AND PHYSICAL [id number] CELY ANN 3. Watch her intake closely. 4. We will try to whittle down some of her medications during her stay if possible. 5. I will see again in the a.m. TRANSINT:[id number] Voice Confirmation ID: [id number] DOCUMENT ID: [id number] DYANA notes whether there has been none or any medical/functional change since admission: - No change since prescreen. DYANA attests patient continues to be appropriate for IRF: - Continues to be appropriate. KENNY,BOLIVAR JEFERSON MD at 1022 CC: [id number] DICTATION DATE: 11/01/19 1203 BLOCKMASON: 11/01/19 1326 DIS IN 11/14/19 [facility] [address] [place] [address]
== END 2019-11-14 12:10 | DRG 559 ==
LOC: D.REHAB 16:55
PROVIDERS: ADMIT Emergency Medicine; ATTEND Emergency Medicine
DX: S72.001D Fracture of unspecified part of neck of right femur, subsequent encounter for closed fracture with routine healing (principal); J18.1 Lobar pneumonia, unspecified organism; I82.409 Acute embolism and thrombosis of unspecified deep veins of unspecified lower extremity; W19.XXXD Unspecified fall, subsequent encounter; R09.02 Hypoxemia; R06.00 Dyspnea, unspecified; I10 Essential (primary) hypertension; I95.9 Hypotension, unspecified; E87.70 Fluid overload, unspecified; E86.0 Dehydration; R41.82 Altered mental status, unspecified; R32 Unspecified urinary incontinence; R53.83 Other fatigue; B99.9 Unspecified infectious disease; T81.31XD Disruption of external operation (surgical) wound, not elsewhere classified, subsequent encounter; M79.18 Myalgia, other site; M25.531 Pain in right wrist; J44.9 Chronic obstructive pulmonary disease, unspecified